=== PATIENT | female | born 1970 | race Two or more races ===

== ENCOUNTER 2018-12-07 16:55 | Emergency (ER) | payer OTHER ==
[~2018-12-07] VITALS: Ht 160 cm; Wt 95.3 kg
[2018-12-07 21:51] LABS: Hematocrit 35.8 % (36.0-46.0); Hemoglobin 12.6 g/dL (12.2-16.2); Mean Corpuscular Hemoglobin 30.3 pg (28.0-32.0); Mean Corpuscular Hgb Conc. 35.1 g/dL (32.0-36.0); Mean Corpuscular Volume 86.5 fL (80.0-100.0); Platelet Count (auto) 52 10^3/uL (140-450); Red Blood Cells 4.14 10^6/uL (4.0-5.20); Red Cell Distribution Width 16.5 % (11.8-14.3); White Blood Cell 6.8 10^3/uL (4.4-10.8)
[2018-12-07 21:52] LABS: Basophils # (auto) 0 uL; Basophils % (auto) 0.4 % (0.0-2.0); Eosinophils # (auto) 0.1 uL; Eosinophils % (auto) 1.1 % (0.0-7.0); Lymphocytes % (auto) 29.5 % (10.0-50.0); Monocytes # (auto) 0.3 uL; Monocytes % (auto) 4.5 % (0.0-12.0); Neutrophils # (auto) 4.4 uL; Neutrophils % (auto) 65.4 % (37.0-80.0); Nucleated Red Blood Cells % 0.2 %
[2018-12-08 01:39] LABS: Carbon Dioxide 37 mmol/L (21-32); Chloride 99 mmol/L (98-107); GFR African American 98 mL/min; GFR Non-African American 81 mL/min; Glucose 315 mg/dL (74-106); Potassium 4.2 mmol/L (3.5-5.1); Sodium 134 mmol/L (136-145)
[2018-12-08 01:51] LABS: Anion Gap < 0 (5-15)
[2018-12-08 03:32] LABS: Alanine Aminotransferase 27 U/L (13-56); Albumin 3.6 g/dL (3.4-5.0); Aspartate Aminotransferase 68 U/L (15-37); Blood Urea Nitrogen 12 mg/dL (7-18); Calcium 8.2 mg/dL (8.5-10.1)
[2018-12-08 03:34] LABS: Alkaline Phosphatase 99 U/L (45-117); Bilirubin, Total 1.4 mg/dL (0.2-1.0); Total Protein 6.4 g/dL (6.4-8.2)
[2018-12-08] MEDS ORDERED: SODIUM CHLORIDE 0.9% 1,000 ML IV ONE ×2 (07:14→10:33)
[2018-12-08 07:41] LABS: Urine Bacteria MOD /hpf (None Seen); Urine Blood Negative /uL (Negative); Urine Mucus FEW (None Seen); Urine Specific Gravity 1.035 (1.001-1.035); Urine WBC 33 /hpf (0 - 5)
[2018-12-08] MEDS ORDERED: InsuLIN REG 1unit/0.01ml Soln (100units/ml) IV ONE (10:45)
[2018-12-08] MEDS ORDERED: LEVOTHYROXINE SODIUM 25 MCG TAB PO ONE (10:45)
[2018-12-08] MEDS ORDERED: cefTRIAXone 1GM/50ML D5W 50 ML IV ONE (10:45)
[2018-12-08] MEDS ORDERED: MULTIPLE VITAMIN 10 ML, MAGNESIUM SULF SDV 50% 8 MEQ in SODIUM CHLORIDE 0.9% 1,000 ML IV SCH (12:00)
[2018-12-08 13:33] VITALS: BP 107/53
== END 2018-12-08 14:07 | disposition home or self-care (01) ==
LOC: ER 16:55
DX: E11.40 Type 2 diabetes mellitus with diabetic neuropathy, unspecified (principal); E11.65 Type 2 diabetes mellitus with hyperglycemia; N39.0 Urinary tract infection, site not specified; E03.9 Hypothyroidism, unspecified; Z98.51 Tubal ligation status
CPT/HCPCS: 36415; 71046; 80053; 81001; 82962; 83036; 83735; 84443; 85025; 93005; 96361; 96365; 96366; 96367; 99284; J0696; J3475; J7030; 96375

== ENCOUNTER 2019-07-19 14:24 | Emergency (ER) | payer OTHER ==
[~2019-07-19] VITALS: Ht 160 cm; Wt 92.5 kg
[2019-07-19 14:33] VITALS: BP 143/77
[2019-07-19] MEDS ORDERED: LIDOCAINE 1% HCL (LOCAL ANESTH.) INJ 20ML MDV IJ ONE (15:30)
[2019-07-19] MEDS ORDERED: cefTRIAXone SOD 1,000 MG VL IM ONE (16:00)
== END 2019-07-19 17:42 | disposition home or self-care (01) ==
LOC: ER 14:24
DX: N76.4 Abscess of vulva (principal); L02.31 Cutaneous abscess of buttock; Z98.51 Tubal ligation status
CPT/HCPCS: 10060; 56405; 96372; 99284; J0696; J2001

== ENCOUNTER 2021-11-21 17:25 | Inpatient (IN) | payer OTHER ==
[~2021-11-21] VITALS: Ht 160 cm; Wt 100.1 kg
[2021-11-21 18:22] LABS: Urine Bacteria FEW /hpf (None Seen); Urine Blood Negative /uL (Negative); Urine WBC 172 /hpf (0 - 5)
[2021-11-21 18:53] LABS: Anion Gap 7 (5-15); Blood Urea Nitrogen 10 mg/dL (7-18); Carbon Dioxide 24 mmol/L (21-32); Chloride 102 mmol/L (98-107); Glucose 263 mg/dL (74-106); Potassium 4.2 mmol/L (3.5-5.1); Sodium 133 mmol/L (136-145)
[2021-11-21 19:45] LABS: Alanine Aminotransferase 135 U/L (13-56); Alkaline Phosphatase 87 U/L (45-117); Aspartate Aminotransferase 187 U/L (15-37); BUN/Creatinine Ratio 9.2; GFR African American 68 mL/min; GFR Non-African American 56 mL/min
[2021-11-21 19:46] LABS: Albumin 3.3 g/dL (3.4-5.0); Bilirubin, Total 2.6 mg/dL (0.2-1.0)
[2021-11-21 19:52] LABS: Basophils # (auto) 0.1 10 ^3/uL (0-0.2); Basophils % (auto) 1.5 % (0.0-2.0); Eosinophils # (auto) 0 10 ^3/uL (0-0.8); Eosinophils % (auto) 0.6 % (0.0-7.0); Hematocrit 30.8 % (36.0-46.0); Lymphocytes # (auto) 2.2 10 ^3/uL (0.4-5.4); Mean Corpuscular Volume 88.5 fL (80.0-100.0); Monocytes # (auto) 0.3 10 ^3/uL (0-1.3); Monocytes % (auto) 4.7 % (0.0-12.0); Neutrophils # (auto) 4.6 10 ^3/uL (1.6-8.6); Neutrophils % (auto) 63.2 % (37.0-80.0); Nucleated Red Blood Cells % 0.3 %; Red Blood Cells 3.49 10^6/uL (4.0-5.20); Red Cell Distribution Width 15.3 % (11.8-14.3); White Blood Cell 7.3 10^3/uL (4.4-10.8)
[2021-11-21 19:53] LABS: Hemoglobin 11.2 g/dL (12.2-16.2)
[2021-11-21 19:54] LABS: Mean Corpuscular Hemoglobin 30.1 pg (28.0-32.0); Mean Corpuscular Hgb Conc. 34.1 g/dL (32.0-36.0)
[2021-11-21 20:11] LABS: Total Protein 7.4 g/dL (6.4-8.2)
[2021-11-21 20:13] LABS: Calcium < 5.0 mg/dL (8.5-10.1)
[2021-11-21] MEDS ORDERED: CALCIUM GLUC 1,000mg/50ml-NS 50 ML IV ONE (20:30)
[2021-11-21] MEDS ORDERED: MORPHINE SULFATE 4 MG/ML SYR/VIAL IV PRN (22:15)
[2021-11-21] MEDS ORDERED: SODIUM CHLORIDE 0.9% 1,000 ML IV SCH (22:15)
[2021-11-21] MEDS ORDERED: ONDANSETRON HCL 4 MG/2 ML VIAL IV PRN (22:15)
[2021-11-21] MEDS ORDERED: DEXTROSE (50%) 50ML SYRG IV PRN (22:15)
[2021-11-21] MEDS ORDERED: HYDROcodone-ACET 5/325MG TAB PO PRN (22:15)
[2021-11-21] MEDS ORDERED: levoFLOXacin 500MG 100 ML IV ONE (22:15)
[2021-11-21] MEDS ORDERED: DOCUSATE SOD 100 MG CAP PO PRN (22:15)
[2021-11-21] MEDS ORDERED: MORPHINE SULFATE INJECTION 2 MG/ML SYRG IV PRN (23:30)
[2021-11-21] MEDS ORDERED: DexAMETHasone SOD PHOS 10MG/1ML VIAL INJ IV ONE (23:30)
[2021-11-21] MEDS ORDERED: NITROGLYCERIN 0.4 MG SL TAB SL PRN (23:30)
[2021-11-22 01:10] VITALS: BP 110/71
[2021-11-22] MEDS ORDERED: METF-929 PO (02:01)
[2021-11-22] MEDS ORDERED: LEVO200T7 PO (02:01)
[2021-11-22] MEDS ORDERED: GABA100C9 PO ×2 (02:01→12:35)
[2021-11-22 05:00] VITALS: BP 107/65
[2021-11-22] MEDS: CLINDAMYCIN 300MG IV 50 ML IV SCH ×3 (05:26→22:41)
[2021-11-22 06:29] LABS: Basophils # (auto) 0 10 ^3/uL (0-0.2); Basophils % (auto) 0.2 % (0.0-2.0); Eosinophils # (auto) 0 10 ^3/uL (0-0.8); Eosinophils % (auto) 0.4 % (0.0-7.0); Hematocrit 30.1 % (36.0-46.0); Hemoglobin 10.1 g/dL (12.2-16.2); Lymphocytes # (auto) 1.1 10 ^3/uL (0.4-5.4); Lymphocytes % (auto) 17.3 % (10.0-50.0); Mean Corpuscular Hemoglobin 29.8 pg (28.0-32.0); Mean Corpuscular Hgb Conc. 33.4 g/dL (32.0-36.0); Monocytes # (auto) 0.2 10 ^3/uL (0-1.3); Monocytes % (auto) 2.3 % (0.0-12.0); Neutrophils # (auto) 5.2 10 ^3/uL (1.6-8.6); Neutrophils % (auto) 79.8 % (37.0-80.0); Nucleated Red Blood Cells % 0.4 %; Red Blood Cells 3.38 10^6/uL (4.0-5.20); Red Cell Distribution Width 14.6 % (11.8-14.3); White Blood Cell 6.6 10^3/uL (4.4-10.8)
[2021-11-22 06:33] LABS: Albumin 3.3 g/dL (3.4-5.0); Anion Gap 10 (5-15); Carbon Dioxide 22 mmol/L (21-32); Chloride 100 mmol/L (98-107); Glucose 270 mg/dL (74-106); Potassium 4.5 mmol/L (3.5-5.1); Sodium 132 mmol/L (136-145)
[2021-11-22 06:39] LABS: Alkaline Phosphatase 78 U/L (45-117); Bilirubin, Direct 0.1 mg/dL (0-0.2); Bilirubin, Total 2.7 mg/dL (0.2-1.0); GFR African American 74 mL/min; GFR Non-African American 61 mL/min
[2021-11-22 06:43] LABS: BUN/Creatinine Ratio 11.9; Blood Urea Nitrogen 12 mg/dL (7-18)
[2021-11-22] MEDS: ACCU-CHEK COMFORT CURVE STRIP VI SCH ×4 (06:43→22:10)
[2021-11-22] MEDS: InsuLIN REG 1unit/0.01ml Soln (100units/ml) SC SCH ×4 (06:43→22:11)
[2021-11-22 06:44] LABS: Blood Alcohol < 3.0 mg/dL (0-5); Calcium 7.3 mg/dL (8.5-10.1); Total Protein 7.2 g/dL (6.4-8.2)
[2021-11-22 07:12] LABS: Aspartate Aminotransferase 118 U/L (15-37)
[2021-11-22 07:45] LABS: Alanine Aminotransferase 38 U/L (13-56)
[2021-11-22 09:00] VITALS: BP 171/68
[2021-11-22] MEDS ORDERED: ENOXAPARIN SOD 40 MG/0.4 ML SYRINGE SC SCH (10:00)
[2021-11-22] MEDS ORDERED: FAMOTIDINE (10MG/ML) 2ML VL IV SCH (10:00)
[2021-11-22] MEDS: cefTRIAXone 1GM/50ML D5W 50 ML IV SCH ×2 (10:18→12:01)
[2021-11-22] MEDS: DexAMETHasone SOD PHOS 10MG/1ML VIAL INJ IV SCH (12:02)
[2021-11-22] MEDS: ASCORBIC ACID 500 MG TAB PO SCH ×2 (12:03→22:10)
[2021-11-22] MEDS: MULTIPLE VITAMIN TAB PO SCH (12:03)
[2021-11-22] MEDS: ZINC SULFATE 220mg CAP or TAB PO SCH (12:03)
[2021-11-22] MEDS ORDERED: METF-370 PO (12:35)
[2021-11-22 13:00] VITALS: BP 108/69
[2021-11-22] MEDS ORDERED: hydrALAZINE HCL 20 MG/ML VL IV PRN (14:00)
[2021-11-22] MEDS ORDERED: IOHEXOL 300 MG/ML 100ML BOTTLE IJ ONE (14:13)
[2021-11-22] MEDS: SODIUM CHLORIDE 0.9% 1,000 ML IV SCH (14:34)
[2021-11-22 17:00] VITALS: BP 103/68
[2021-11-22] MEDS ORDERED: hydrALAZINE HCL 20 MG/ML VL IV SCH (18:00)
[2021-11-22 22:00] VITALS: BP 116/74
[2021-11-22] MEDS: PANTOPRAZOLE 40 MG TAB PO SCH (22:10)
[2021-11-22] MEDS: INSULIN LANTUS (GLARGINE) 1 /0.01ml (100units/ml) SC SCH (22:11)
[2021-11-23 05:19] VITALS: BP 103/59
[2021-11-23] MEDS: CLINDAMYCIN 300MG IV 50 ML IV SCH ×3 (06:06→22:52)
[2021-11-23] MEDS: ACCU-CHEK COMFORT CURVE STRIP VI SCH ×4 (06:36→22:38)
[2021-11-23] MEDS: InsuLIN REG 1unit/0.01ml Soln (100units/ml) SC SCH ×4 (06:40→22:51)
[2021-11-23 06:51] LABS: Chloride 102 mmol/L (98-107); Sodium 134 mmol/L (136-145)
[2021-11-23 06:53] LABS: INR 1.05 (0.9-1.15)
[2021-11-23 07:21] LABS: Albumin 3.3 g/dL (3.4-5.0); Alkaline Phosphatase 75 U/L (45-117); Bilirubin, Total 1.8 mg/dL (0.2-1.0); Calcium 8.4 mg/dL (8.5-10.1); Carbon Dioxide 18 mmol/L (21-32); Cholesterol 298 mg/dL (< 200); GFR African American 57 mL/min; GFR Non-African American 47 mL/min; Glucose 286 mg/dL (74-106); HDL Cholesterol 26 mg/dL (40-59); Magnesium 2.2 mg/dL (1.6-2.6); Triglycerides 1802 mg/dL (< 150)
[2021-11-23 07:23] LABS: Anion Gap 14 (5-15)
[2021-11-23 08:23] LABS: Alanine Aminotransferase 31 U/L (13-56); Aspartate Aminotransferase 97 U/L (15-37); BUN/Creatinine Ratio 10.3; Blood Urea Nitrogen 13 mg/dL (7-18)
[2021-11-23 08:48] LABS: Hematocrit 30.3 % (36.0-46.0); Hemoglobin 10.2 g/dL (12.2-16.2); Mean Corpuscular Hemoglobin 29.9 pg (28.0-32.0); Mean Corpuscular Hgb Conc. 33.8 g/dL (32.0-36.0); Mean Corpuscular Volume 88.6 fL (80.0-100.0); Red Blood Cells 3.42 10^6/uL (4.0-5.20); Red Cell Distribution Width 14.8 % (11.8-14.3)
[2021-11-23 08:53] LABS: Lymphocytes % (auto) 19.5 % (10.0-50.0); Monocytes % (auto) 3.4 % (0.0-12.0); Neutrophils % (auto) 76.6 % (37.0-80.0)
[2021-11-23] MEDS: DexAMETHasone SOD PHOS 10MG/1ML VIAL INJ IV SCH (08:53)
[2021-11-23] MEDS: SODIUM CHLORIDE 0.9% 1,000 ML IV SCH (08:53)
[2021-11-23] MEDS: ZINC SULFATE 220mg CAP or TAB PO SCH (08:53)
[2021-11-23] MEDS: MULTIPLE VITAMIN TAB PO SCH (08:53)
[2021-11-23] MEDS: PANTOPRAZOLE 40 MG TAB PO SCH ×2 (08:53→22:50)
[2021-11-23] MEDS: ASCORBIC ACID 500 MG TAB PO SCH ×2 (08:53→22:51)
[2021-11-23] MEDS: cefTRIAXone 1GM/50ML D5W 50 ML IV SCH (08:53)
[2021-11-23 08:54] LABS: Basophils # (auto) 0 10 ^3/uL (0-0.2); Basophils % (auto) 0.5 % (0.0-2.0); Eosinophils # (auto) 0 10 ^3/uL (0-0.8); Lymphocytes # (auto) 1.5 10 ^3/uL (0.4-5.4); Monocytes # (auto) 0.3 10 ^3/uL (0-1.3); Nucleated Red Blood Cells % 1.4 %
[2021-11-23 09:00] VITALS: BP 99/54
[2021-11-23] MEDS ORDERED: LEVOTHYROXINE SODIUM 100 MCG/5 ML INJ IV ONE (10:30)
[2021-11-23 13:00] VITALS: BP 118/73
[2021-11-23 17:00] VITALS: BP 122/66
[2021-11-23] MEDS: ERGOCALCIFEROL 50,000 UNIT(1.25MG) CAP PO SCH (18:00)
[2021-11-23 22:00] VITALS: BP 107/78
[2021-11-23] MEDS ORDERED: ATORVASTATIN 20 MG TAB PO SCH (22:00)
[2021-11-23] MEDS: INSULIN LANTUS (GLARGINE) 1 /0.01ml (100units/ml) SC SCH (22:46)
[2021-11-24 05:00] VITALS: BP 93/55
[2021-11-24] MEDS: SODIUM CHLORIDE 0.9% 1,000 ML IV SCH (05:45)
[2021-11-24] MEDS: InsuLIN REG 1unit/0.01ml Soln (100units/ml) SC SCH ×5 (06:21→22:58)
[2021-11-24] MEDS: ACCU-CHEK COMFORT CURVE STRIP VI SCH ×4 (06:21→22:00)
[2021-11-24] MEDS: CLINDAMYCIN 300MG IV 50 ML IV SCH ×3 (06:59→22:54)
[2021-11-24] MEDS: cefTRIAXone 1GM/50ML D5W 50 ML IV SCH (09:00)
[2021-11-24 09:11] VITALS: BP 93/59
[2021-11-24] MEDS: ASCORBIC ACID 500 MG TAB PO SCH ×2 (09:40→22:54)
[2021-11-24] MEDS: ZINC SULFATE 220mg CAP or TAB PO SCH (09:40)
[2021-11-24] MEDS: DexAMETHasone SOD PHOS 10MG/1ML VIAL INJ IV SCH (09:40)
[2021-11-24] MEDS: PANTOPRAZOLE 40 MG TAB PO SCH ×2 (09:40→22:55)
[2021-11-24] MEDS: MULTIPLE VITAMIN TAB PO SCH (09:40)
[2021-11-24] MEDS ORDERED: LEVOTHYROXINE SODIUM 100 MCG/5 ML INJ IV SCH (10:00)
[2021-11-24] MEDS ORDERED: GADOTERATE MEG 10 MMOL/20ml INJ (0.5MMOL/ml) IV ONE (11:30)
[2021-11-24 13:04] VITALS: BP 94/56
[2021-11-24 14:15] LABS: Albumin 3.6 g/dL (3.4-5.0); Calcium 8.4 mg/dL (8.5-10.1); Potassium 3.9 mmol/L (3.5-5.1)
[2021-11-24 14:18] LABS: Bilirubin, Total 1.7 mg/dL (0.2-1.0); Total Protein 7.6 g/dL (6.4-8.2)
[2021-11-24 16:44] VITALS: BP 105/59
[2021-11-24 22:00] VITALS: BP 92/57
[2021-11-24] MEDS: ATORVASTATIN 20 MG TAB PO SCH (22:54)
[2021-11-24] MEDS: INSULIN LANTUS (GLARGINE) 1 /0.01ml (100units/ml) SC SCH (23:00)
[2021-11-25 05:00] VITALS: BP 113/56
[2021-11-25] MEDS: CLINDAMYCIN 300MG IV 50 ML IV SCH ×3 (06:24→22:06)
[2021-11-25] MEDS: ACCU-CHEK COMFORT CURVE STRIP VI SCH ×4 (07:00→22:06)
[2021-11-25] MEDS: InsuLIN REG 1unit/0.01ml Soln (100units/ml) SC SCH ×4 (07:00→22:05)
[2021-11-25] MEDS ORDERED: LEVOTHYROXINE SODIUM 100 MCG TAB PO SCH (07:00)
[2021-11-25 07:07] LABS: Potassium 3.5 mmol/L (3.5-5.1)
[2021-11-25 07:14] LABS: Albumin 3.4 g/dL (3.4-5.0); BUN/Creatinine Ratio 15.7; Calcium 8.5 mg/dL (8.5-10.1)
[2021-11-25 07:19] LABS: Bilirubin, Total 1.8 mg/dL (0.2-1.0)
[2021-11-25 07:21] LABS: Basophils # (auto) 0.1 10 ^3/uL (0-0.2); Basophils % (auto) 0.9 % (0.0-2.0); Eosinophils # (auto) 0 10 ^3/uL (0-0.8); Eosinophils % (auto) 0.2 % (0.0-7.0); Hematocrit 29.1 % (36.0-46.0); Hemoglobin 10.6 g/dL (12.2-16.2); Lymphocytes # (auto) 2.3 10 ^3/uL (0.4-5.4); Lymphocytes % (auto) 33.1 % (10.0-50.0); Mean Corpuscular Hemoglobin 31.8 pg (28.0-32.0); Mean Corpuscular Hgb Conc. 36.2 g/dL (32.0-36.0); Mean Corpuscular Volume 87.9 fL (80.0-100.0); Monocytes # (auto) 0.3 10 ^3/uL (0-1.3); Monocytes % (auto) 3.7 % (0.0-12.0); Neutrophils # (auto) 4.4 10 ^3/uL (1.6-8.6); Neutrophils % (auto) 62.1 % (37.0-80.0); Nucleated Red Blood Cells % 0.2 %; Red Blood Cells 3.32 10^6/uL (4.0-5.20); Red Cell Distribution Width 14.6 % (11.8-14.3); White Blood Cell 7.1 10^3/uL (4.4-10.8)
[2021-11-25 09:11] VITALS: BP 117/66
[2021-11-25] MEDS: DexAMETHasone SOD PHOS 10MG/1ML VIAL INJ IV SCH (09:17)
[2021-11-25] MEDS: cefTRIAXone 1GM/50ML D5W 50 ML IV SCH (09:17)
[2021-11-25] MEDS: ASCORBIC ACID 500 MG TAB PO SCH ×2 (09:18→21:54)
[2021-11-25] MEDS: MULTIPLE VITAMIN TAB PO SCH (09:18)
[2021-11-25] MEDS: ZINC SULFATE 220mg CAP or TAB PO SCH (09:18)
[2021-11-25] MEDS: PANTOPRAZOLE 40 MG TAB PO SCH ×2 (09:18→21:54)
[2021-11-25 13:00] VITALS: BP 119/80
[2021-11-25 15:28] LABS: Hepatitis B Surface Antibody Negative (Negative)
[2021-11-25 16:02] LABS: Hepatitis A Total Antibody Positive (Negative)
[2021-11-25 16:35] LABS: Hepatitis C Antibody Negative (Negative)
[2021-11-25 17:06] VITALS: BP 125/85
[2021-11-25] MEDS: ATORVASTATIN 20 MG TAB PO SCH (21:53)
[2021-11-25 22:00] VITALS: BP 125/74
[2021-11-25] MEDS: INSULIN LANTUS (GLARGINE) 1 /0.01ml (100units/ml) SC SCH (22:06)
[2021-11-26 04:00] VITALS: BP 98/69
[2021-11-26 05:48] LABS: Basophils # (auto) 0 10 ^3/uL (0-0.2); Basophils % (auto) 0.4 % (0.0-2.0); Eosinophils # (auto) 0 10 ^3/uL (0-0.8); Eosinophils % (auto) 0.5 % (0.0-7.0); Hematocrit 31.2 % (36.0-46.0); Hemoglobin 10.8 g/dL (12.2-16.2); Lymphocytes # (auto) 2.5 10 ^3/uL (0.4-5.4); Lymphocytes % (auto) 37.9 % (10.0-50.0); Mean Corpuscular Hemoglobin 30.7 pg (28.0-32.0); Mean Corpuscular Hgb Conc. 34.6 g/dL (32.0-36.0); Mean Corpuscular Volume 88.7 fL (80.0-100.0); Monocytes # (auto) 0.2 10 ^3/uL (0-1.3); Monocytes % (auto) 3.7 % (0.0-12.0); Neutrophils # (auto) 3.9 10 ^3/uL (1.6-8.6); Neutrophils % (auto) 57.5 % (37.0-80.0); Nucleated Red Blood Cells % 0.2 %; Red Blood Cells 3.51 10^6/uL (4.0-5.20); Red Cell Distribution Width 14.9 % (11.8-14.3); White Blood Cell 6.7 10^3/uL (4.4-10.8)
[2021-11-26 06:09] LABS: Calcium 8.3 mg/dL (8.5-10.1); Potassium 3.4 mmol/L (3.5-5.1)
[2021-11-26 06:13] LABS: BUN/Creatinine Ratio 17.8
[2021-11-26] MEDS: ACCU-CHEK COMFORT CURVE STRIP VI SCH ×4 (06:13→22:46)
[2021-11-26 06:15] LABS: Bilirubin, Total 1.8 mg/dL (0.2-1.0)
[2021-11-26] MEDS: CLINDAMYCIN 300MG IV 50 ML IV SCH ×3 (06:21→22:54)
[2021-11-26] MEDS: LEVOTHYROXINE SODIUM 100 MCG TAB PO SCH (06:35)
[2021-11-26] MEDS: InsuLIN REG 1unit/0.01ml Soln (100units/ml) SC SCH ×5 (06:45→22:56)
[2021-11-26 09:00] VITALS: BP 98/53
[2021-11-26] MEDS: cefTRIAXone 1GM/50ML D5W 50 ML IV SCH (09:00)
[2021-11-26] MEDS: PANTOPRAZOLE 40 MG TAB PO SCH ×2 (09:35→22:44)
[2021-11-26] MEDS: DexAMETHasone SOD PHOS 10MG/1ML VIAL INJ IV SCH (09:35)
[2021-11-26] MEDS: MULTIPLE VITAMIN TAB PO SCH (09:35)
[2021-11-26] MEDS: ASCORBIC ACID 500 MG TAB PO SCH ×2 (09:35→22:44)
[2021-11-26] MEDS: ZINC SULFATE 220mg CAP or TAB PO SCH (09:35)
[2021-11-26 12:32] VITALS: BP 114/64
[2021-11-26] MEDS ORDERED: POTASSIUM EFFERVESENT TAB 25 MEQ PO ONE (15:00)
[2021-11-26 17:25] VITALS: BP 129/83
[2021-11-26 22:00] VITALS: BP 116/70
[2021-11-26] MEDS: ATORVASTATIN 20 MG TAB PO SCH (22:44)
[2021-11-26] MEDS: INSULIN LANTUS (GLARGINE) 1 /0.01ml (100units/ml) SC SCH (22:50)
[2021-11-27 05:00] VITALS: BP 97/59
[2021-11-27] MEDS: CLINDAMYCIN 300MG IV 50 ML IV SCH ×5 (07:23→21:10)
[2021-11-27] MEDS: LEVOTHYROXINE SODIUM 100 MCG TAB PO SCH (07:24)
[2021-11-27] MEDS: ACCU-CHEK COMFORT CURVE STRIP VI SCH ×4 (07:24→21:22)
[2021-11-27 08:15] VITALS: BP 113/72
[2021-11-27] MEDS: cefTRIAXone 1GM/50ML D5W 50 ML IV SCH (08:27)
[2021-11-27] MEDS: ZINC SULFATE 220mg CAP or TAB PO SCH (08:27)
[2021-11-27] MEDS: DexAMETHasone SOD PHOS 4 MG/1ML SDV INJ IV SCH (08:27)
[2021-11-27] MEDS: PANTOPRAZOLE 40 MG TAB PO SCH ×2 (08:28→21:10)
[2021-11-27] MEDS: ASCORBIC ACID 500 MG TAB PO SCH ×2 (08:28→21:10)
[2021-11-27] MEDS: MULTIPLE VITAMIN TAB PO SCH (08:28)
[2021-11-27 08:33] LABS: Basophils # (auto) 0 10 ^3/uL (0-0.2); Basophils % (auto) 0.3 % (0.0-2.0); Eosinophils # (auto) 0 10 ^3/uL (0-0.8); Eosinophils % (auto) 0.6 % (0.0-7.0); Hemoglobin 11.9 g/dL (12.2-16.2); Lymphocytes # (auto) 2.5 10 ^3/uL (0.4-5.4); Lymphocytes % (auto) 32.4 % (10.0-50.0); Mean Corpuscular Hemoglobin 32.2 pg (28.0-32.0); Mean Corpuscular Hgb Conc. 36.1 g/dL (32.0-36.0); Mean Corpuscular Volume 89.1 fL (80.0-100.0); Monocytes # (auto) 0.2 10 ^3/uL (0-1.3); Monocytes % (auto) 2.9 % (0.0-12.0); Neutrophils % (auto) 63.8 % (37.0-80.0); Nucleated Red Blood Cells % 0.2 %; Red Cell Distribution Width 15.2 % (11.8-14.3); White Blood Cell 7.8 10^3/uL (4.4-10.8)
[2021-11-27 08:40] LABS: Potassium 3.5 mmol/L (3.5-5.1)
[2021-11-27 08:53] LABS: BUN/Creatinine Ratio 21.3; Bilirubin, Total 2.2 mg/dL (0.2-1.0); Calcium 9.1 mg/dL (8.5-10.1)
[2021-11-27] MEDS: InsuLIN REG 1unit/0.01ml Soln (100units/ml) SC SCH ×3 (11:37→21:22)
[2021-11-27 12:09] VITALS: BP 90/62
[2021-11-27 16:22] VITALS: BP 112/70
[2021-11-27] MEDS: ATORVASTATIN 20 MG TAB PO SCH (21:10)
[2021-11-27] MEDS: INSULIN LANTUS (GLARGINE) 1 /0.01ml (100units/ml) SC SCH (21:27)
[2021-11-27 22:28] VITALS: BP 93/62
[2021-11-28 05:00] VITALS: BP 95/64
[2021-11-28] MEDS: CLINDAMYCIN 300MG IV 50 ML IV SCH ×3 (05:59→21:23)
[2021-11-28] MEDS: ACCU-CHEK COMFORT CURVE STRIP VI SCH ×4 (06:05→21:18)
[2021-11-28] MEDS: LEVOTHYROXINE SODIUM 100 MCG TAB PO SCH (06:05)
[2021-11-28] MEDS: InsuLIN REG 1unit/0.01ml Soln (100units/ml) SC SCH ×4 (06:05→21:23)
[2021-11-28 07:16] LABS: Potassium 3.5 mmol/L (3.5-5.1)
[2021-11-28 07:28] LABS: Albumin 3.5 g/dL (3.4-5.0); Bilirubin, Total 2.3 mg/dL (0.2-1.0); Calcium 8.3 mg/dL (8.5-10.1)
[2021-11-28 07:37] LABS: Basophils # (auto) 0.2 10 ^3/uL (0-0.2); Basophils % (auto) 2.6 % (0.0-2.0); Eosinophils # (auto) 0.1 10 ^3/uL (0-0.8); Eosinophils % (auto) 0.9 % (0.0-7.0); Hemoglobin 11.5 g/dL (12.2-16.2); Lymphocytes # (auto) 2.4 10 ^3/uL (0.4-5.4); Lymphocytes % (auto) 28.7 % (10.0-50.0); Mean Corpuscular Hemoglobin 32.4 pg (28.0-32.0); Mean Corpuscular Volume 88.3 fL (80.0-100.0); Monocytes # (auto) 0.2 10 ^3/uL (0-1.3); Monocytes % (auto) 2.4 % (0.0-12.0); Neutrophils # (auto) 5.4 10 ^3/uL (1.6-8.6); Neutrophils % (auto) 65.4 % (37.0-80.0); Nucleated Red Blood Cells % 0.2 %; Red Blood Cells 3.57 10^6/uL (4.0-5.20); Red Cell Distribution Width 15.1 % (11.8-14.3); White Blood Cell 8.2 10^3/uL (4.4-10.8)
[2021-11-28 07:39] LABS: Hematocrit 32.5 % (36.0-46.0)
[2021-11-28 07:56] LABS: BUN/Creatinine Ratio 20.9
[2021-11-28 07:57] LABS: Total Protein 7.3 g/dL (6.4-8.2)
[2021-11-28 09:00] VITALS: BP 112/64
[2021-11-28] MEDS: cefTRIAXone 1GM/50ML D5W 50 ML IV SCH (09:22)
[2021-11-28] MEDS: ASCORBIC ACID 500 MG TAB PO SCH ×2 (09:23→21:23)
[2021-11-28] MEDS: DexAMETHasone SOD PHOS 4 MG/1ML SDV INJ IV SCH (09:23)
[2021-11-28] MEDS: PANTOPRAZOLE 40 MG TAB PO SCH ×2 (09:23→21:23)
[2021-11-28] MEDS: MULTIPLE VITAMIN TAB PO SCH (09:23)
[2021-11-28] MEDS: ZINC SULFATE 220mg CAP or TAB PO SCH (09:23)
[2021-11-28 13:00] VITALS: BP 115/75
[2021-11-28 17:00] VITALS: BP 126/69
[2021-11-28] MEDS: ATORVASTATIN 20 MG TAB PO SCH (21:23)
[2021-11-28] MEDS: INSULIN LANTUS (GLARGINE) 1 /0.01ml (100units/ml) SC SCH (21:31)
[2021-11-28 21:56] VITALS: BP 94/54
[2021-11-29 05:00] VITALS: BP 124/60
[2021-11-29 05:29] LABS: Basophils # (auto) 0 10 ^3/uL (0-0.2); Basophils % (auto) 0.4 % (0.0-2.0); Eosinophils # (auto) 0 10 ^3/uL (0-0.8); Eosinophils % (auto) 0.6 % (0.0-7.0); Hematocrit 30.4 % (36.0-46.0); Hemoglobin 11.1 g/dL (12.2-16.2); Lymphocytes # (auto) 2.4 10 ^3/uL (0.4-5.4); Lymphocytes % (auto) 31.4 % (10.0-50.0); Mean Corpuscular Hgb Conc. 36.4 g/dL (32.0-36.0); Monocytes # (auto) 0.3 10 ^3/uL (0-1.3); Monocytes % (auto) 3.3 % (0.0-12.0); Neutrophils # (auto) 4.9 10 ^3/uL (1.6-8.6); Neutrophils % (auto) 64.3 % (37.0-80.0); Nucleated Red Blood Cells % 0.1 %; Red Blood Cells 3.46 10^6/uL (4.0-5.20); Red Cell Distribution Width 14.6 % (11.8-14.3); White Blood Cell 7.7 10^3/uL (4.4-10.8)
[2021-11-29 06:06] LABS: Potassium 3.5 mmol/L (3.5-5.1)
[2021-11-29 06:13] LABS: Albumin 3.6 g/dL (3.4-5.0); BUN/Creatinine Ratio 15.6; Calcium 8.8 mg/dL (8.5-10.1)
[2021-11-29] MEDS: LEVOTHYROXINE SODIUM 100 MCG TAB PO SCH (06:13)
[2021-11-29] MEDS: CLINDAMYCIN 300MG IV 50 ML IV SCH (06:14)
[2021-11-29] MEDS: InsuLIN REG 1unit/0.01ml Soln (100units/ml) SC SCH ×4 (06:23→22:01)
[2021-11-29] MEDS: ACCU-CHEK COMFORT CURVE STRIP VI SCH ×4 (06:23→21:55)
[2021-11-29 06:24] LABS: Bilirubin, Total 2.4 mg/dL (0.2-1.0); Total Protein 7.3 g/dL (6.4-8.2)
[2021-11-29 09:00] VITALS: BP 115/75
[2021-11-29] MEDS: cefTRIAXone 1GM/50ML D5W 50 ML IV SCH (09:00)
[2021-11-29] MEDS: ASCORBIC ACID 500 MG TAB PO SCH ×2 (10:00→21:55)
[2021-11-29] MEDS: PANTOPRAZOLE 40 MG TAB PO SCH ×2 (10:00→21:55)
[2021-11-29] MEDS: ZINC SULFATE 220mg CAP or TAB PO SCH (10:00)
[2021-11-29] MEDS: DexAMETHasone SOD PHOS 4 MG/1ML SDV INJ IV SCH (10:00)
[2021-11-29] MEDS: MULTIPLE VITAMIN TAB PO SCH (10:00)
[2021-11-29 10:28] LABS: Prolactin 20.43 ng/mL (2.8-29.2)
[2021-11-29 10:29] LABS: Follicle Stimulating Hormone 35.26 IU/L (SEE BELOW)
[2021-11-29 13:00] VITALS: BP 107/74
[2021-11-29 17:00] VITALS: BP 101/72
[2021-11-29] MEDS: ATORVASTATIN 20 MG TAB PO SCH (21:54)
[2021-11-29 22:00] VITALS: BP_SYST 114; BP_SYST 96; BP_DIAS 58; BP_DIAS 76
[2021-11-29] MEDS: INSULIN LANTUS (GLARGINE) 1 /0.01ml (100units/ml) SC SCH (22:01)
[2021-11-30 04:30] VITALS: BP 96/58
[2021-11-30] MEDS: ACCU-CHEK COMFORT CURVE STRIP VI SCH ×4 (05:43→21:41)
[2021-11-30] MEDS: InsuLIN REG 1unit/0.01ml Soln (100units/ml) SC SCH ×4 (05:49→21:45)
[2021-11-30] MEDS: LEVOTHYROXINE SODIUM 100 MCG TAB PO SCH (05:50)
[2021-11-30 06:26] LABS: BUN/Creatinine Ratio 16.1; Calcium 8.6 mg/dL (8.5-10.1); Potassium 3.6 mmol/L (3.5-5.1)
[2021-11-30 09:00] VITALS: BP 103/67
[2021-11-30] MEDS: ZINC SULFATE 220mg CAP or TAB PO SCH (09:57)
[2021-11-30] MEDS: ASCORBIC ACID 500 MG TAB PO SCH ×2 (09:57→21:39)
[2021-11-30] MEDS: PANTOPRAZOLE 40 MG TAB PO SCH ×2 (09:57→21:39)
[2021-11-30] MEDS: MULTIPLE VITAMIN TAB PO SCH (09:57)
[2021-11-30] MEDS: ERGOCALCIFEROL 50,000 UNIT(1.25MG) CAP PO SCH (09:58)
[2021-11-30] MEDS: LEVOTHYROXINE SODIUM 100 MCG/5 ML INJ IV SCH (10:00)
[2021-11-30 13:00] VITALS: BP 103/58
[2021-11-30 17:00] VITALS: BP 105/64
[2021-11-30] MEDS: INSULIN LANTUS (GLARGINE) 1 /0.01ml (100units/ml) SC SCH (21:44)
[2021-11-30] MEDS: ATORVASTATIN 20 MG TAB PO SCH (21:49)
[2021-11-30 22:00] VITALS: BP 100/66
[2021-12-01] MEDS: ACCU-CHEK COMFORT CURVE STRIP VI SCH ×4 (05:53→21:54)
[2021-12-01] MEDS: InsuLIN REG 1unit/0.01ml Soln (100units/ml) SC SCH ×4 (06:20→21:58)
[2021-12-01] MEDS: LEVOTHYROXINE SODIUM 100 MCG TAB PO SCH (06:20)
[2021-12-01 09:00] VITALS: BP 158/78
[2021-12-01] MEDS: LEVOTHYROXINE SODIUM 100 MCG/5 ML INJ IV SCH (09:46)
[2021-12-01] MEDS: ZINC SULFATE 220mg CAP or TAB PO SCH (09:47)
[2021-12-01] MEDS: ASCORBIC ACID 500 MG TAB PO SCH ×2 (09:47→21:54)
[2021-12-01] MEDS: MULTIPLE VITAMIN TAB PO SCH (09:47)
[2021-12-01] MEDS: PANTOPRAZOLE 40 MG TAB PO SCH ×2 (09:47→21:54)
[2021-12-01 13:00] VITALS: BP 135/70
[2021-12-01 17:00] VITALS: BP 119/72
[2021-12-01 20:00] VITALS: BP 93/58
[2021-12-01] MEDS: ATORVASTATIN 20 MG TAB PO SCH (21:53)
[2021-12-01] MEDS: INSULIN LANTUS (GLARGINE) 1 /0.01ml (100units/ml) SC SCH (21:58)
[2021-12-01 23:10] VITALS: BP 93/58
[2021-12-02 05:43] VITALS: BP 92/60
[2021-12-02] MEDS: ACCU-CHEK COMFORT CURVE STRIP VI SCH ×4 (06:31→21:56)
[2021-12-02] MEDS: InsuLIN REG 1unit/0.01ml Soln (100units/ml) SC SCH ×4 (06:31→22:05)
[2021-12-02] MEDS: LEVOTHYROXINE SODIUM 100 MCG TAB PO SCH (06:48)
[2021-12-02 08:48] VITALS: BP 106/67
[2021-12-02] MEDS: MULTIPLE VITAMIN TAB PO SCH (10:08)
[2021-12-02] MEDS: LEVOTHYROXINE SODIUM 100 MCG/5 ML INJ IV SCH (10:08)
[2021-12-02] MEDS: ZINC SULFATE 220mg CAP or TAB PO SCH (10:08)
[2021-12-02] MEDS: ASCORBIC ACID 500 MG TAB PO SCH ×2 (10:09→21:55)
[2021-12-02] MEDS: PANTOPRAZOLE 40 MG TAB PO SCH ×2 (10:09→21:55)
[2021-12-02 13:00] VITALS: BP 108/70
[2021-12-02] MEDS: HYDROCORTISONE SOD SUCC 100 MG/2ML INJ VIAL IV SCH ×2 (16:54→21:55)
[2021-12-02 17:00] VITALS: BP 98/59
[2021-12-02 20:00] VITALS: BP 108/58
[2021-12-02] MEDS: ATORVASTATIN 20 MG TAB PO SCH (21:55)
[2021-12-02 22:00] VITALS: BP 108/58
[2021-12-02] MEDS: INSULIN LANTUS (GLARGINE) 1 /0.01ml (100units/ml) SC SCH (22:05)
[2021-12-03 05:00] VITALS: BP 95/59
[2021-12-03] MEDS: HYDROCORTISONE SOD SUCC 100 MG/2ML INJ VIAL IV SCH ×3 (05:55→22:56)
[2021-12-03] MEDS: ACCU-CHEK COMFORT CURVE STRIP VI SCH ×4 (06:32→22:57)
[2021-12-03] MEDS: LEVOTHYROXINE SODIUM 100 MCG TAB PO SCH (06:32)
[2021-12-03] MEDS: InsuLIN REG 1unit/0.01ml Soln (100units/ml) SC SCH ×4 (06:38→22:00)
[2021-12-03 06:39] LABS: Basophils # (auto) 0.1 10 ^3/uL (0-0.2); Basophils % (auto) 0.7 % (0.0-2.0); Eosinophils # (auto) 0 10 ^3/uL (0-0.8); Eosinophils % (auto) 0.2 % (0.0-7.0); Hematocrit 29.3 % (36.0-46.0); Hemoglobin 10.3 g/dL (12.2-16.2); Lymphocytes # (auto) 1.4 10 ^3/uL (0.4-5.4); Lymphocytes % (auto) 18.2 % (10.0-50.0); Mean Corpuscular Volume 88.5 fL (80.0-100.0); Monocytes # (auto) 0.2 10 ^3/uL (0-1.3); Neutrophils # (auto) 6.1 10 ^3/uL (1.6-8.6); Neutrophils % (auto) 78.9 % (37.0-80.0); Red Blood Cells 3.31 10^6/uL (4.0-5.20); Red Cell Distribution Width 14.5 % (11.8-14.3); White Blood Cell 7.8 10^3/uL (4.4-10.8)
[2021-12-03 07:03] LABS: Potassium 3.6 mmol/L (3.5-5.1)
[2021-12-03 07:13] LABS: BUN/Creatinine Ratio 18.2; Calcium 8.8 mg/dL (8.5-10.1); Magnesium 2.4 mg/dL (1.6-2.6)
[2021-12-03 07:15] LABS: Bilirubin, Total 2.5 mg/dL (0.2-1.0)
[2021-12-03 08:30] VITALS: BP 108/69
[2021-12-03] MEDS ORDERED: ADENOSINE 84 MG in GIVE UN-DILUTED 0 ML IV ONE (08:30)
[2021-12-03] MEDS: ZINC SULFATE 220mg CAP or TAB PO SCH (09:45)
[2021-12-03] MEDS: LEVOTHYROXINE SODIUM 100 MCG/5 ML INJ IV SCH (09:45)
[2021-12-03] MEDS: MULTIPLE VITAMIN TAB PO SCH (09:45)
[2021-12-03] MEDS: ASCORBIC ACID 500 MG TAB PO SCH ×2 (09:46→22:56)
[2021-12-03] MEDS: PANTOPRAZOLE 40 MG TAB PO SCH ×2 (09:46→10:00)
[2021-12-03 12:57] VITALS: BP 139/69
[2021-12-03 22:00] VITALS: BP 118/68
[2021-12-03] MEDS: ATORVASTATIN 20 MG TAB PO SCH (22:56)
[2021-12-03] MEDS: INSULIN LANTUS (GLARGINE) 1 /0.01ml (100units/ml) SC SCH (22:58)
[2021-12-04 05:00] VITALS: BP 123/56
[2021-12-04] MEDS: ACCU-CHEK COMFORT CURVE STRIP VI SCH ×4 (06:41→21:20)
[2021-12-04] MEDS: HYDROCORTISONE SOD SUCC 100 MG/2ML INJ VIAL IV SCH ×3 (06:41→21:19)
[2021-12-04] MEDS: LEVOTHYROXINE SODIUM 100 MCG TAB PO SCH (06:41)
[2021-12-04] MEDS: InsuLIN REG 1unit/0.01ml Soln (100units/ml) SC SCH ×4 (06:47→22:40)
[2021-12-04 08:58] VITALS: BP 118/67
[2021-12-04] MEDS: MULTIPLE VITAMIN TAB PO SCH (10:00)
[2021-12-04] MEDS: PANTOPRAZOLE 40 MG TAB PO SCH ×2 (10:00→21:19)
[2021-12-04] MEDS: ASCORBIC ACID 500 MG TAB PO SCH ×2 (10:00→21:19)
[2021-12-04] MEDS: ZINC SULFATE 220mg CAP or TAB PO SCH (10:00)
[2021-12-04] MEDS: LEVOTHYROXINE SODIUM 100 MCG/5 ML INJ IV SCH (10:00)
[2021-12-04 12:35] VITALS: BP 113/70
[2021-12-04 16:48] VITALS: BP 116/62
[2021-12-04] MEDS: ATORVASTATIN 20 MG TAB PO SCH (21:19)
[2021-12-04] MEDS: INSULIN LANTUS (GLARGINE) 1 /0.01ml (100units/ml) SC SCH (21:23)
[2021-12-05 04:54] VITALS: BP 86/42
[2021-12-05] MEDS: LEVOTHYROXINE SODIUM 100 MCG TAB PO SCH (06:06)
[2021-12-05] MEDS: HYDROCORTISONE SOD SUCC 100 MG/2ML INJ VIAL IV SCH ×3 (06:06→22:13)
[2021-12-05] MEDS: ACCU-CHEK COMFORT CURVE STRIP VI SCH ×4 (06:08→22:13)
[2021-12-05] MEDS: InsuLIN REG 1unit/0.01ml Soln (100units/ml) SC SCH ×4 (06:29→22:19)
[2021-12-05 09:00] VITALS: BP 110/67
[2021-12-05] MEDS: MULTIPLE VITAMIN TAB PO SCH (09:33)
[2021-12-05] MEDS: ZINC SULFATE 220mg CAP or TAB PO SCH (09:33)
[2021-12-05] MEDS: LEVOTHYROXINE SODIUM 100 MCG/5 ML INJ IV SCH (09:33)
[2021-12-05] MEDS: PANTOPRAZOLE 40 MG TAB PO SCH ×2 (09:34→22:13)
[2021-12-05] MEDS: ASCORBIC ACID 500 MG TAB PO SCH ×2 (09:34→22:12)
[2021-12-05 12:00] VITALS: BP 108/74
[2021-12-05 16:00] VITALS: BP 127/83
[2021-12-05 20:00] VITALS: BP 110/55
[2021-12-05 21:50] VITALS: BP 110/55
[2021-12-05] MEDS: ATORVASTATIN 20 MG TAB PO SCH (22:12)
[2021-12-05] MEDS: INSULIN LANTUS (GLARGINE) 1 /0.01ml (100units/ml) SC SCH (22:19)
[2021-12-06 05:05] VITALS: BP 109/59
[2021-12-06] MEDS: LEVOTHYROXINE SODIUM 100 MCG TAB PO SCH (07:00)
[2021-12-06] MEDS: HYDROCORTISONE SOD SUCC 100 MG/2ML INJ VIAL IV SCH ×2 (07:00→13:38)
[2021-12-06] MEDS: ACCU-CHEK COMFORT CURVE STRIP VI SCH ×2 (07:20→11:30)
[2021-12-06] MEDS: InsuLIN REG 1unit/0.01ml Soln (100units/ml) SC SCH ×2 (07:26→11:30)
[2021-12-06 09:00] VITALS: BP 104/56
[2021-12-06] MEDS: MULTIPLE VITAMIN TAB PO SCH (10:00)
[2021-12-06] MEDS: ZINC SULFATE 220mg CAP or TAB PO SCH (10:00)
[2021-12-06] MEDS: PANTOPRAZOLE 40 MG TAB PO SCH (10:00)
[2021-12-06] MEDS: ASCORBIC ACID 500 MG TAB PO SCH (10:00)
[2021-12-06] MEDS: LEVOTHYROXINE SODIUM 100 MCG/5 ML INJ IV SCH (10:00)
[2021-12-06] MEDS ORDERED: INSLANTI SC (12:23)
[2021-12-06] MEDS ORDERED: LEVO200T7 PO (12:23)
[2021-12-06] MEDS ORDERED: HYDR10T PO (12:23)
[2021-12-06] MEDS ORDERED: ATO40T PO (12:23)
[2021-12-06] MEDS ORDERED: CHOL500023 PO (12:23)
[2021-12-06 13:00] VITALS: BP 110/70
== END 2021-12-06 18:00 | disposition home or self-care (01) | DRG 643 ==
LOC: ER 17:25 → TELE 23:45 → TELE-WESTW 11-22 01:10 → WEST WING 12-01 15:21
PROVIDERS: ADMIT Nurse Practitioner Family; ATTEND Internal Medicine
PROC: 4A02XM4 Measurement of Cardiac Total Activity, External Approach (ICD-10-PCS; principal; 2021-12-03)
PROC: 3E073KZ Introduction of Other Diagnostic Substance into Coronary Artery, Percutaneous Approach (ICD-10-PCS; 2021-12-03)
DX: E03.9 Hypothyroidism, unspecified (principal); N17.0 Acute kidney failure with tubular necrosis; N30.01 Acute cystitis with hematuria; I31.3 Pericardial effusion (noninflammatory); D69.3 Immune thrombocytopenic purpura; D35.2 Benign neoplasm of pituitary gland; R22.0 Localized swelling, mass and lump, head; E88.09 Other disorders of plasma-protein metabolism, not elsewhere classified; D69.6 Thrombocytopenia, unspecified; I49.8 Other specified cardiac arrhythmias; K76.0 Fatty (change of) liver, not elsewhere classified; G43.909 Migraine, unspecified, not intractable, without status migrainosus; E55.9 Vitamin D deficiency, unspecified; E66.01 Morbid (severe) obesity due to excess calories; E78.5 Hyperlipidemia, unspecified; E11.42 Type 2 diabetes mellitus with diabetic polyneuropathy; I12.9 Hypertensive chronic kidney disease with stage 1 through stage 4 chronic kidney disease, or unspecified chronic kidney disease; K80.20 Calculus of gallbladder without cholecystitis without obstruction; D18.03 Hemangioma of intra-abdominal structures; E11.22 Type 2 diabetes mellitus with diabetic chronic kidney disease; N18.9 Chronic kidney disease, unspecified; E78.00 Pure hypercholesterolemia, unspecified; E78.1 Pure hyperglyceridemia; Z82.49 Family history of ischemic heart disease and other diseases of the circulatory system; Z83.3 Family history of diabetes mellitus; Z86.16 Personal history of COVID-19; Z68.29 Body mass index [BMI] 29.0-29.9, adult; Z79.84 Long term (current) use of oral hypoglycemic drugs
CPT/HCPCS: 36415; 70450; 70486; 70491; 70553; 71250; 74181; 74183; 76705; 78452; 80048; 80053; 80061; 80076; 80320; 81001; 82247; 82306; 82533; 82962; 83001; 83036; 83735; 83880; 84146; 84436; 84443; 84481; 84484; 84702; 85025; 85610; 85652; 86141; 86431; 86704; 86706; 86708; 86803; 87086; 87340; 93005; 93017; 93306; 99291; G0378; J0153; J0696; J1100; J1815; J1956; J3490

== ENCOUNTER 2023-07-28 19:31 | Inpatient (IN) | payer OTHER ==
[~2023-07-28] VITALS: Ht 160 cm; Wt 93.0 kg
[~2023-07-28 19:31] MED LIST: ATO40T PO; CHOL500023 PO; GABA-1308 PO; HYDR10T PO; INSLANTI SC; LEVO200T7 PO; METF-370 PO
[2023-07-28] MEDS ORDERED: SODIUM CHLORIDE 0.9% 1,000 ML IV ONE (20:30)
[2023-07-28 20:51] LABS: Urine Bacteria FEW /hpf (None Seen); Urine Blood Negative /uL (Negative); Urine Budding Yeast OCCASIONAL /hpf (None Seen); Urine Clarity HAZY (Clear); Urine Color Yellow (Yellow); Urine Mucus FEW (None Seen); Urine Protein, UAD 1+ (Negative); Urine WBC 73 /hpf (0 - 5); Urine pH 5.5 (5.0-8.0)
[2023-07-28 22:10] LABS: Basophils # (auto) 0.1 10 ^3/uL (0-0.2); Eosinophils # (auto) 0.1 10 ^3/uL (0-0.8); Eosinophils % (auto) 0.9 % (0.0-7.0); Hematocrit 34.9 % (36.0-46.0); Hemoglobin 14.1 g/dL (12.2-16.2); Lymphocytes # (auto) 1.7 10 ^3/uL (0.4-5.4); Lymphocytes % (auto) 24.4 % (10.0-50.0); Mean Corpuscular Volume 83.5 fL (80.0-100.0); Monocytes # (auto) 0.2 10 ^3/uL (0-1.3); Monocytes % (auto) 3.4 % (0.0-12.0); Neutrophils # (auto) 4.9 10 ^3/uL (1.6-8.6); Neutrophils % (auto) 69.3 % (37.0-80.0); Nucleated Red Blood Cells % 0.4 %; Red Blood Cells 4.18 10^6/uL (4.0-5.20); Red Cell Distribution Width 15.8 % (11.8-14.3)
[2023-07-28 22:15] LABS: Mean Corpuscular Hemoglobin 28.8 pg (28.0-32.0)
[2023-07-28 22:16] LABS: Mean Corpuscular Hgb Conc. 33.8 g/dL (32.0-36.0)
[2023-07-29 00:28] LABS: Chloride 101 mmol/L (98-107); Sodium 132 mmol/L (136-145)
[2023-07-29 01:11] LABS: Alanine Aminotransferase 18 U/L (7-40); Albumin 4.6 g/dL (3.2-4.8); Alkaline Phosphatase 111 U/L (46-116); Anion Gap 19 (5-15); Aspartate Aminotransferase 80 U/L (13-40); BUN/Creatinine Ratio 11.6 (10.0-20.0); Bilirubin, Total 2.1 mg/dL (0.2-1.0); Blood Urea Nitrogen 10 mg/dL (9-23); Calcium 9.1 mg/dL (8.7-10.4); Carbon Dioxide 12 mmol/L (20-30); Glucose 342 mg/dL (74-106); Lipase 53 U/L (12-53); Total Protein 7.6 g/dL (5.7-8.2)
[2023-07-29 01:14] LABS: Potassium 5.7 mmol/L (3.5-5.1)
[2023-07-29] MEDS ORDERED: SODIUM CHLORIDE 0.9% 1,000 ML IV ONE (01:30)
[2023-07-29] MEDS ORDERED: InsuLIN REG 1unit/0.01ml Soln (100units/ml) SC ONE (01:30)
[2023-07-29 05:01] LABS: Anion Gap 1 (5-15); BUN/Creatinine Ratio 6.7 (10.0-20.0); Blood Urea Nitrogen < 5 mg/dL (9-23); Calcium 8.8 mg/dL (8.7-10.4); Carbon Dioxide 30 mmol/L (20-30); Chloride 98 mmol/L (98-107); Glucose 287 mg/dL (74-106); Potassium 5.2 mmol/L (3.5-5.1); Sodium 129 mmol/L (136-145)
[2023-07-29] MEDS ORDERED: DEXTROSE (50%) 50ML SYRG IV PRN ×2 (05:30→12:00)
[2023-07-29] MEDS ORDERED: ONDANSETRON HCL 4 MG/2 ML VIAL IV PRN (05:30)
[2023-07-29] MEDS ORDERED: DOCUSATE SOD 100 MG CAP PO PRN (05:30)
[2023-07-29] MEDS ORDERED: cefTRIAXone 1GM/50ML D5W 50 ML IV ONE (05:30)
[2023-07-29] MEDS ORDERED: IBUPROFEN 600 MG TAB PO PRN (05:30)
[2023-07-29] MEDS ORDERED: HYDROcodone-ACET 5/325MG TAB PO PRN (05:30)
[2023-07-29 05:49] LABS: Basophils # (auto) 0.5 10 ^3/uL (0-0.2); Eosinophils # (auto) 0 10 ^3/uL (0-0.8); Eosinophils % (auto) 0.3 % (0.0-7.0); Hematocrit 34.2 % (36.0-46.0); Hemoglobin 13.3 g/dL (12.2-16.2); Lymphocytes # (auto) 1.5 10 ^3/uL (0.4-5.4); Mean Corpuscular Hemoglobin 33.1 pg (28.0-32.0); Mean Corpuscular Volume 84.9 fL (80.0-100.0); Monocytes # (auto) 0.7 10 ^3/uL (0-1.3); Monocytes % (auto) 11.2 % (0.0-12.0); Neutrophils # (auto) 3.4 10 ^3/uL (1.6-8.6); Neutrophils % (auto) 55.5 % (37.0-80.0); Nucleated Red Blood Cells % 0.3 %; Red Blood Cells 4.03 10^6/uL (4.0-5.20); Red Cell Distribution Width 16.2 % (11.8-14.3); White Blood Cell 6.1 10^3/uL (4.4-10.8)
[2023-07-29] MEDS: SODIUM CHLORIDE 0.9% 1,000 ML IV SCH ×2 (05:58→22:10)
[2023-07-29 06:52] LABS: Mean Corpuscular Hgb Conc. 31.3 g/dL (32.0-36.0)
[2023-07-29] MEDS: LEVOTHYROXINE SODIUM 50 MCG TAB PO SCH (06:53)
[2023-07-29] MEDS: InsuLIN REG 1unit/0.01ml Soln (100units/ml) SC SCH ×2 (09:10→12:00)
[2023-07-29] MEDS: ACCU-CHEK COMFORT CURVE STRIP VI SCH ×10 (09:12→22:30)
[2023-07-29 10:25] LABS: Chloride 102 mmol/L (98-107)
[2023-07-29 10:28] LABS: Calcium 8.7 mg/dL (8.5-10.1)
[2023-07-29 10:33] LABS: Alkaline Phosphatase 94 U/L (46-116); Glucose 211 mg/dL (74-106)
[2023-07-29 11:07] LABS: Alanine Aminotransferase 23 U/L (7-40); Albumin 4.6 g/dL (3.2-4.8); Anion Gap 22.00001 (5-15); Aspartate Aminotransferase 124 U/L (13-40); BUN/Creatinine Ratio 14.3 (10.0-20.0); Blood Urea Nitrogen 10 mg/dL (9-23); Total Protein 7.6 g/dL (5.7-8.2)
[2023-07-29 11:31] LABS: Sodium 134 mmol/L (136-145)
[2023-07-29 11:34] LABS: Carbon Dioxide < 10 mmol/L (20-30); Potassium 6.3 mmol/L (3.5-5.1)
[2023-07-29] MEDS ORDERED: SODIUM BICARBONATE 8.4% INJ 50ML SYRINGE IV ONE (12:00)
[2023-07-29] MEDS ORDERED: SODIUM ZIRCONIUM CYCL 10 GM PAK PO ONE (12:00)
[2023-07-29] MEDS ORDERED: FUROSEMIDE 40 MG/4 ML VIAL IV ONE (12:00)
[2023-07-29] MEDS ORDERED: DEXTROSE (50%) 50ML SYRG IV ONE (12:00)
[2023-07-29] MEDS ORDERED: INSULIN LANTUS (GLARGINE) 1 /0.01ml (100units/ml) SC ONE (12:00)
[2023-07-29] MEDS: INSULIN DRIP 100 UNIT/100ML 100 ML IV SCH (12:00)
[2023-07-29] MEDS ORDERED: InsuLIN REG 1unit/0.01ml Soln (100units/ml) IV ONE (12:00)
[2023-07-29 17:35] LABS: Base Excess 2.3 mmol/L (-2.0-2.0)
[2023-07-29 18:28] LABS: Chloride 99 mmol/L (98-107); Sodium 132 mmol/L (136-145)
[2023-07-29 18:29] LABS: Calcium 8.6 mg/dL (8.5-10.1)
[2023-07-29 18:33] LABS: Anion Gap 23.00001 (5-15)
[2023-07-29 18:34] LABS: Glucose 117 mg/dL (74-106)
[2023-07-29 18:35] LABS: Potassium 4.7 mmol/L (3.5-5.1)
[2023-07-29 18:36] LABS: Carbon Dioxide < 10 mmol/L (20-30)
[2023-07-29 18:40] LABS: Blood Urea Nitrogen 8 mg/dL (9-23)
[2023-07-29 19:30] VITALS: PULSE 57; RESP 16; O2SAT 98
[2023-07-29 22:17] LABS: Chloride 100 mmol/L (98-107); Sodium 134 mmol/L (136-145)
[2023-07-29 22:18] LABS: Calcium 8.5 mg/dL (8.7-10.4)
[2023-07-29 22:23] LABS: Glucose 156 mg/dL (74-106)
[2023-07-29 22:28] LABS: Anion Gap 24.00001 (5-15)
[2023-07-29 22:29] LABS: BUN/Creatinine Ratio 9.1 (10.0-20.0); Blood Urea Nitrogen < 5 mg/dL (9-23); Carbon Dioxide < 10 mmol/L (20-30); Potassium 3.6 mmol/L (3.5-5.1)
[2023-07-30] MEDS ORDERED: SODIUM BICARBONATE 8.4 % INJ 50ML VIAL IV ONE
[2023-07-30] MEDS: ACCU-CHEK COMFORT CURVE STRIP VI SCH ×13 (01:30→22:00)
[2023-07-30 02:48] LABS: Chloride 101 mmol/L (98-107); Sodium 135 mmol/L (136-145)
[2023-07-30 02:50] LABS: Potassium 3.4 mmol/L (3.5-5.1)
[2023-07-30 02:51] LABS: Anion Gap 21 (5-15); Calcium 8.3 mg/dL (8.7-10.4); Carbon Dioxide 13 mmol/L (20-30)
[2023-07-30 02:56] LABS: Glucose 144 mg/dL (74-106)
[2023-07-30 03:16] LABS: BUN/Creatinine Ratio 9.6 (10.0-20.0); Blood Urea Nitrogen < 5 mg/dL (9-23)
[2023-07-30 05:37] LABS: Albumin 3.6 g/dL (3.2-4.8); Anion Gap 22 (5-15); Calcium 8.4 mg/dL (8.7-10.4); Carbon Dioxide 11 mmol/L (20-30); Chloride 102 mmol/L (98-107); Glucose 131 mg/dL (74-106); Sodium 135 mmol/L (136-145)
[2023-07-30 05:38] LABS: Bilirubin, Total 1.8 mg/dL (0.2-1.0)
[2023-07-30 05:45] LABS: Basophils # (auto) 0.1 10 ^3/uL (0-0.2); Basophils % (auto) 1.7 % (0.0-2.0); Eosinophils # (auto) 0.1 10 ^3/uL (0-0.8); Eosinophils % (auto) 1.6 % (0.0-7.0); Hematocrit 34.7 % (36.0-46.0); Lymphocytes # (auto) 2.1 10 ^3/uL (0.4-5.4); Lymphocytes % (auto) 30.2 % (10.0-50.0); Mean Corpuscular Volume 83.5 fL (80.0-100.0); Monocytes # (auto) 0.2 10 ^3/uL (0-1.3); Neutrophils # (auto) 4.4 10 ^3/uL (1.6-8.6); Neutrophils % (auto) 63.5 % (37.0-80.0); Nucleated Red Blood Cells % 0.8 %; Red Blood Cells 4.15 10^6/uL (4.0-5.20); Red Cell Distribution Width 16.6 % (11.8-14.3); White Blood Cell 6.9 10^3/uL (4.4-10.8)
[2023-07-30 05:57] LABS: Alanine Aminotransferase 13 U/L (7-40); Alkaline Phosphatase 100 U/L (46-116); Aspartate Aminotransferase 41 U/L (13-40); Potassium 3.6 mmol/L (3.5-5.1); Total Protein 5.7 g/dL (5.7-8.2)
[2023-07-30 06:13] LABS: Blood Urea Nitrogen < 5 mg/dL (9-23)
[2023-07-30] MEDS: SODIUM CHLORIDE 0.9% 1,000 ML IV SCH (06:15)
[2023-07-30 07:31] LABS: Base Excess 2.2 mmol/L (-2.0-2.0)
[2023-07-30 07:52] LABS: Mean Corpuscular Hemoglobin 27.3 pg (28.0-32.0); Mean Corpuscular Hgb Conc. 32.2 g/dL (32.0-36.0)
[2023-07-30] MEDS: LEVOTHYROXINE SODIUM 50 MCG TAB PO SCH (08:26)
[2023-07-30 08:44] VITALS: PULSE 57; RESP 14; O2SAT 95
[2023-07-30] MEDS: cefTRIAXone 1GM/50ML D5W 50 ML IV SCH (09:23)
[2023-07-30] MEDS ORDERED: INSULIN LANTUS (GLARGINE) 1 /0.01ml (100units/ml) SC SCH (10:00)
[2023-07-30 10:55] LABS: Chloride 104 mmol/L (98-107); Sodium 138 mmol/L (136-145)
[2023-07-30 10:56] LABS: Anion Gap 17 (5-15); Calcium 8.5 mg/dL (8.5-10.1); Carbon Dioxide 17 mmol/L (20-30)
[2023-07-30 11:01] LABS: Glucose 153 mg/dL (74-106)
[2023-07-30 11:02] LABS: BUN/Creatinine Ratio 12.5 (10.0-20.0); Blood Urea Nitrogen 8 mg/dL (9-23); Potassium 3.8 mmol/L (3.5-5.1)
[2023-07-30] MEDS: INSULIN DRIP 100 UNIT/100ML 100 ML IV SCH (12:00)
[2023-07-30 14:50] LABS: Chloride 102 mmol/L (98-107); Potassium 3.2 mmol/L (3.5-5.1); Sodium 139 mmol/L (136-145)
[2023-07-30 14:51] LABS: Anion Gap 9 (5-15); Calcium 8.4 mg/dL (8.7-10.4); Carbon Dioxide 28 mmol/L (20-30)
[2023-07-30 14:56] LABS: Blood Urea Nitrogen 13 mg/dL (9-23); Glucose 119 mg/dL (74-106)
[2023-07-30] MEDS ORDERED: INSULIN LANTUS (GLARGINE) 1 /0.01ml (100units/ml) SC ONE (15:30)
[2023-07-30] MEDS ORDERED: DEXTROSE (50%) 50ML SYRG IV PRN (15:30)
[2023-07-30] MEDS: InsuLIN REG 1unit/0.01ml Soln (100units/ml) SC SCH ×2 (17:32→22:47)
[2023-07-30 19:30] VITALS: PULSE 74; RESP 18; O2SAT 97
[2023-07-31 05:26] LABS: Basophils # (auto) 0.1 10 ^3/uL (0-0.2); Eosinophils # (auto) 0.1 10 ^3/uL (0-0.8); Eosinophils % (auto) 1.3 % (0.0-7.0); Hematocrit 37.5 % (36.0-46.0); Hemoglobin 12.9 g/dL (12.2-16.2); Lymphocytes # (auto) 1.8 10 ^3/uL (0.4-5.4); Mean Corpuscular Hemoglobin 29.3 pg (28.0-32.0); Mean Corpuscular Hgb Conc. 34.5 g/dL (32.0-36.0); Mean Corpuscular Volume 84.8 fL (80.0-100.0); Monocytes # (auto) 0.1 10 ^3/uL (0-1.3); Monocytes % (auto) 2.2 % (0.0-12.0); Neutrophils # (auto) 4.1 10 ^3/uL (1.6-8.6); Neutrophils % (auto) 65.5 % (37.0-80.0); Nucleated Red Blood Cells % 0.8 %; Red Blood Cells 4.42 10^6/uL (4.0-5.20); Red Cell Distribution Width 16.2 % (11.8-14.3); White Blood Cell 6.2 10^3/uL (4.4-10.8)
[2023-07-31 05:41] LABS: Albumin 3.4 g/dL (3.2-4.8); Alkaline Phosphatase 98 U/L (46-116); Anion Gap 21 (5-15); Calcium 8.4 mg/dL (8.7-10.4); Carbon Dioxide 14 mmol/L (20-30); Chloride 103 mmol/L (98-107); Glucose 202 mg/dL (74-106); Sodium 138 mmol/L (136-145)
[2023-07-31 05:42] LABS: Bilirubin, Total 1.9 mg/dL (0.2-1.0); Total Protein 5.8 g/dL (5.7-8.2)
[2023-07-31 06:03] LABS: Alanine Aminotransferase 11 U/L (7-40); Aspartate Aminotransferase 41 U/L (13-40); Potassium 3.7 mmol/L (3.5-5.1)
[2023-07-31 06:06] LABS: BUN/Creatinine Ratio 6.4 (10.0-20.0); Blood Urea Nitrogen < 5 mg/dL (9-23)
[2023-07-31] MEDS: InsuLIN REG 1unit/0.01ml Soln (100units/ml) SC SCH ×4 (06:50→21:20)
[2023-07-31] MEDS: ACCU-CHEK COMFORT CURVE STRIP VI SCH ×4 (06:50→22:07)
[2023-07-31] MEDS: LEVOTHYROXINE SODIUM 50 MCG TAB PO SCH (06:51)
[2023-07-31] MEDS: SODIUM CHLORIDE 0.9% 1,000 ML IV SCH ×2 (06:54→22:05)
[2023-07-31 07:52] LABS: Large Platelets FEW; Platelet Estimate Decreased
[2023-07-31] MEDS: cefTRIAXone 1GM/50ML D5W 50 ML IV SCH (09:03)
[2023-07-31 16:29] VITALS: BP 109/66; PULSE 61; RESP 16; TEMP 98.1; O2SAT 100
[2023-07-31 16:30] VITALS: BP 109/66; PULSE 61; TEMP 98.1; O2SAT 100
[2023-07-31] MEDS: metFORMIN HYDROCHLORIDE 500 MG TAB PO SCH (17:17)
[2023-07-31 20:00] VITALS: BP 104/65; PULSE 56; PULSE 58; RESP 24; TEMP 98; O2SAT 98
[2023-07-31 22:00] VITALS: BP 104/65; PULSE 56; RESP 26; TEMP 98; O2SAT 98
[2023-07-31] MEDS ORDERED: INSULIN LANTUS (GLARGINE) 1 /0.01ml (100units/ml) SC SCH (22:00)
[2023-07-31] MEDS: ATORVASTATIN 20 MG TAB PO SCH (22:00)
[2023-08-01] MEDS: SODIUM CHLORIDE 0.9% 1,000 ML IV SCH (02:53)
[2023-08-01 05:00] VITALS: BP 103/70; PULSE 62; RESP 20; TEMP 97.8; O2SAT 98
[2023-08-01] MEDS: InsuLIN REG 1unit/0.01ml Soln (100units/ml) SC SCH ×4 (06:45→21:34)
[2023-08-01] MEDS: LEVOTHYROXINE SODIUM 50 MCG TAB PO SCH (06:48)
[2023-08-01] MEDS: ACCU-CHEK COMFORT CURVE STRIP VI SCH ×4 (06:51→21:37)
[2023-08-01 08:00] VITALS: PULSE 52; PULSE 58; RESP 17; O2SAT 98
[2023-08-01] MEDS: metFORMIN HYDROCHLORIDE 500 MG TAB PO SCH ×2 (08:41→17:06)
[2023-08-01] MEDS: cefTRIAXone 1GM/50ML D5W 50 ML IV SCH (08:42)
[2023-08-01 09:00] VITALS: BP 101/56; PULSE 58; RESP 17; TEMP 97.8; O2SAT 98
[2023-08-01] MEDS: GABAPENTIN 100 MG CAP PO SCH (11:10)
[2023-08-01 13:00] VITALS: BP 119/71; PULSE 64; RESP 19; TEMP 98.4; O2SAT 98
[2023-08-01] MEDS: LEVOTHYROXINE SODIUM 100 MCG/5 ML INJ IV ONE ×2 (15:15→17:06)
[2023-08-01 16:42] VITALS: BP 105/61; PULSE 59; RESP 18; TEMP 98.5; O2SAT 98
[2023-08-01] MEDS ORDERED: LORazepam 2MG/ML-1ML VIAL IV ONE (17:00)
[2023-08-01] MEDS ORDERED: LEVOTHYROXINE SODIUM 100 MCG/5 ML INJ IV ONE (17:00)
[2023-08-01] MEDS ORDERED: GADOTERATE MEG 10 MMOL/20ml INJ (0.5MMOL/ml) IV ONE (17:01)
[2023-08-01 20:00] VITALS: PULSE 70; RESP 16; O2SAT 97
[2023-08-01] MEDS: ATORVASTATIN 20 MG TAB PO SCH (21:15)
[2023-08-01] MEDS: INSULIN LANTUS (GLARGINE) 1 /0.01ml (100units/ml) SC SCH (21:19)
[2023-08-02] VITALS (7 sets, daily range): BP systolic 106–115; BP diastolic 62–73; PULSE 55–69; RESP 16–20; TEMP 97.8–98.4; O2SAT 94–98
[2023-08-02] MEDS: ACCU-CHEK COMFORT CURVE STRIP VI SCH ×4 (06:11→21:05)
[2023-08-02] MEDS: LEVOTHYROXINE SODIUM 100 MCG TAB PO SCH (06:11)
[2023-08-02] MEDS: InsuLIN REG 1unit/0.01ml Soln (100units/ml) SC SCH ×4 (06:18→21:11)
[2023-08-02] MEDS: metFORMIN HYDROCHLORIDE 500 MG TAB PO SCH ×2 (08:00→17:55)
[2023-08-02 08:01] LABS: Anion Gap 11 (5-15); Carbon Dioxide 18 mmol/L (20-30); Chloride 106 mmol/L (98-107); Potassium 4.1 mmol/L (3.5-5.1); Sodium 135 mmol/L (136-145)
[2023-08-02 08:02] LABS: Calcium 8.8 mg/dL (8.5-10.1)
[2023-08-02 08:06] LABS: Glucose 120 mg/dL (74-106)
[2023-08-02 08:07] LABS: BUN/Creatinine Ratio 10.4 (10.0-20.0); Blood Urea Nitrogen 7 mg/dL (9-23)
[2023-08-02 08:08] LABS: Cholesterol 371 mg/dL (< 200); HDL Cholesterol 27 mg/dL (40-59)
[2023-08-02 08:28] LABS: Triglycerides 1476 mg/dL (< 150)
[2023-08-02 09:12] LABS: Magnesium 1.7 mg/dL (1.6-2.6)
[2023-08-02] MEDS: cefTRIAXone 1GM/50ML D5W 50 ML IV SCH (09:20)
[2023-08-02] MEDS: GABAPENTIN 100 MG CAP PO SCH (09:20)
[2023-08-02] MEDS ORDERED: GEMFIBROZIL 600 MG TAB PO ONE (11:00)
[2023-08-02] MEDS: GEMFIBROZIL 600 MG TAB PO SCH (20:59)
[2023-08-02] MEDS: ATORVASTATIN 20 MG TAB PO SCH (20:59)
[2023-08-02] MEDS: INSULIN LANTUS (GLARGINE) 1 /0.01ml (100units/ml) SC SCH (21:05)
[2023-08-03 05:00] VITALS: BP 101/60; PULSE 60; RESP 18; TEMP 98.3; O2SAT 97
[2023-08-03] MEDS: ACCU-CHEK COMFORT CURVE STRIP VI SCH ×4 (06:15→21:48)
[2023-08-03] MEDS: LEVOTHYROXINE SODIUM 100 MCG TAB PO SCH (06:15)
[2023-08-03] MEDS: InsuLIN REG 1unit/0.01ml Soln (100units/ml) SC SCH ×4 (06:24→21:53)
[2023-08-03 06:29] LABS: Anion Gap 14 (5-15); Carbon Dioxide 19 mmol/L (20-30); Chloride 103 mmol/L (98-107); Sodium 136 mmol/L (136-145)
[2023-08-03 06:35] LABS: BUN/Creatinine Ratio 10.1 (10.0-20.0); Blood Urea Nitrogen 7 mg/dL (9-23); Glucose 158 mg/dL (74-106)
[2023-08-03 06:43] LABS: Basophils # (auto) 0 10 ^3/uL (0-0.2); Basophils % (auto) 0.5 % (0.0-2.0); Eosinophils # (auto) 0 10 ^3/uL (0-0.8); Hematocrit 35.5 % (36.0-46.0); Hemoglobin 12.2 g/dL (12.2-16.2); Lymphocytes # (auto) 1.8 10 ^3/uL (0.4-5.4); Lymphocytes % (auto) 39.4 % (10.0-50.0); Mean Corpuscular Hemoglobin 29.4 pg (28.0-32.0); Mean Corpuscular Hgb Conc. 34.4 g/dL (32.0-36.0); Mean Corpuscular Volume 85.4 fL (80.0-100.0); Monocytes # (auto) 0.2 10 ^3/uL (0-1.3); Monocytes % (auto) 4.8 % (0.0-12.0); Neutrophils # (auto) 2.5 10 ^3/uL (1.6-8.6); Neutrophils % (auto) 54.3 % (37.0-80.0); Red Blood Cells 4.16 10^6/uL (4.0-5.20); Red Cell Distribution Width 16.1 % (11.8-14.3); White Blood Cell 4.5 10^3/uL (4.4-10.8)
[2023-08-03 08:00] VITALS: BP 115/66; PULSE 59; PULSE 67; RESP 16; TEMP 98.2; O2SAT 96
[2023-08-03 09:00] VITALS: BP 115/66; PULSE 67; RESP 16; TEMP 98.2; O2SAT 96
[2023-08-03] MEDS: GEMFIBROZIL 600 MG TAB PO SCH ×2 (09:42→21:49)
[2023-08-03] MEDS: cefTRIAXone 1GM/50ML D5W 50 ML IV SCH (09:42)
[2023-08-03] MEDS: GABAPENTIN 100 MG CAP PO SCH (09:42)
[2023-08-03] MEDS: metFORMIN HYDROCHLORIDE 500 MG TAB PO SCH ×2 (09:47→18:34)
[2023-08-03] MEDS ORDERED: LEVOTHYROXINE SODIUM 100 MCG/5 ML INJ IV ONE (14:45)
[2023-08-03 17:00] VITALS: BP 100/67; PULSE 64; RESP 17; TEMP 98.4; O2SAT 97
[2023-08-03 20:00] VITALS: PULSE 73; RESP 20; O2SAT 94
[2023-08-03] MEDS: INSULIN LANTUS (GLARGINE) 1 /0.01ml (100units/ml) SC SCH (21:48)
[2023-08-03] MEDS: ATORVASTATIN 20 MG TAB PO SCH (21:49)
[2023-08-03 22:00] VITALS: BP 94/65; PULSE 66; RESP 20; TEMP 98.3; O2SAT 94
[2023-08-04] VITALS (7 sets, daily range): BP systolic 95–126; BP diastolic 56–83; PULSE 60–71; RESP 12–22; TEMP 97.7–98.6; O2SAT 95–98
[2023-08-04] MEDS: InsuLIN REG 1unit/0.01ml Soln (100units/ml) SC SCH ×4 (06:21→22:35)
[2023-08-04] MEDS: ACCU-CHEK COMFORT CURVE STRIP VI SCH ×4 (06:21→22:35)
[2023-08-04] MEDS ORDERED: LEVOTHYROXINE SODIUM 100 MCG TAB PO SCH (07:00)
[2023-08-04 08:09] LABS: Cholesterol 313 mg/dL (< 200); HDL Cholesterol 26 mg/dL (40-59)
[2023-08-04 08:17] LABS: Triglycerides 1236 mg/dL (< 150)
[2023-08-04] MEDS: GEMFIBROZIL 600 MG TAB PO SCH ×2 (09:28→22:21)
[2023-08-04] MEDS: GABAPENTIN 100 MG CAP PO SCH (09:28)
[2023-08-04] MEDS: cefTRIAXone 1GM/50ML D5W 50 ML IV SCH (09:29)
[2023-08-04] MEDS: metFORMIN HYDROCHLORIDE 500 MG TAB PO SCH ×2 (09:29→17:42)
[2023-08-04] MEDS: LEVOTHYROXINE SODIUM 100 MCG/5 ML INJ IV SCH (09:48)
[2023-08-04] MEDS: ATORVASTATIN 20 MG TAB PO SCH (22:21)
[2023-08-04] MEDS: INSULIN LANTUS (GLARGINE) 1 /0.01ml (100units/ml) SC SCH (22:35)
[2023-08-05 05:00] VITALS: BP 95/65; PULSE 62; RESP 16; TEMP 98; O2SAT 94
[2023-08-05] MEDS: ACCU-CHEK COMFORT CURVE STRIP VI SCH ×3 (06:18→17:00)
[2023-08-05] MEDS: InsuLIN REG 1unit/0.01ml Soln (100units/ml) SC SCH ×3 (06:18→17:00)
[2023-08-05] MEDS ORDERED: LEVOTHYROXINE SODIUM 100 MCG TAB PO SCH (07:00)
[2023-08-05 08:00] VITALS: PULSE 62
[2023-08-05 09:00] VITALS: BP 104/70; PULSE 62; RESP 12; TEMP 98.4; O2SAT 96
[2023-08-05] MEDS: LEVOTHYROXINE SODIUM 100 MCG/5 ML INJ IV SCH (09:32)
[2023-08-05] MEDS: GABAPENTIN 100 MG CAP PO SCH (09:32)
[2023-08-05] MEDS: GEMFIBROZIL 600 MG TAB PO SCH (09:32)
[2023-08-05] MEDS: metFORMIN HYDROCHLORIDE 500 MG TAB PO SCH ×2 (09:32→18:00)
[2023-08-05] MEDS: cefTRIAXone 1GM/50ML D5W 50 ML IV SCH (09:33)
[2023-08-05 13:00] VITALS: BP 103/66; PULSE 69; RESP 14; TEMP 98.3; O2SAT 97
[2023-08-05] MEDS ORDERED: CEPH500C PO (16:03)
[2023-08-05] MEDS ORDERED: GEMF600T PO (16:03)
[2023-08-05 17:00] VITALS: BP 106/59; PULSE 66; RESP 14; TEMP 98.6; O2SAT 96
[2023-08-05 17:25] VITALS: BP 132/65; TEMP 36.8
== END 2023-08-05 18:00 | disposition home or self-care (01) | DRG 638 ==
LOC: ER 19:31 → OVERFLOW 07-29 06:44 → EAST 07-31 16:19 → TELE-EAST 08-02 07:36
PROVIDERS: ADMIT Internal Medicine; ATTEND Internal Medicine
DX: E11.10 Type 2 diabetes mellitus with ketoacidosis without coma (principal); N17.9 Acute kidney failure, unspecified; N39.0 Urinary tract infection, site not specified; E03.9 Hypothyroidism, unspecified; E66.01 Morbid (severe) obesity due to excess calories; E87.5 Hyperkalemia; E86.0 Dehydration; Z68.37 Body mass index [BMI] 37.0-37.9, adult; D35.2 Benign neoplasm of pituitary gland; E78.1 Pure hyperglyceridemia; E87.8 Other disorders of electrolyte and fluid balance, not elsewhere classified; K76.0 Fatty (change of) liver, not elsewhere classified; H53.8 Other visual disturbances; R79.89 Other specified abnormal findings of blood chemistry; Z91.148 Patient's other noncompliance with medication regimen for other reason; Z98.51 Tubal ligation status
CPT/HCPCS: 36415; 36600; 70553; 80048; 80053; 80061; 81001; 82010; 82533; 82607; 82805; 82962; 83036; 83690; 83735; 83880; 84132; 84443; 84484; 85025; 87086; 93306; 96361; 96365; 96366; 96372; 96375; 96376; G0378; J0696; J1815; J3490

== ENCOUNTER 2025-01-21 09:08 | Inpatient (IN) | payer OTHER ==
[~2025-01-21] VITALS: Ht 160 cm; Wt 94.8 kg
[~2025-01-21 09:08] MED LIST changes: -ATO40T PO; +ATOR-507 PO; +CEPH500C PO; +GEMF600T PO
--- NOTE | 2025-01-21 09:54 | ED.PDOC ---
History of Present Illness HPI Comments 54 year old female presents to the ED with a chief complaint of facial swelling onset 1 week. Patient states she has been experiencing facial swelling for the past week, facial numbness for the past 2 days and began experiencing palpitations last night. Upon ED arrival BP was 146/89, HR 71. PMHx DM, thyroid. Denies chest pain, shortness of breath, dizziness, nausea, vomiting, diarrhea. No other symptoms or modifying factors present at this time. Chief Complaint: Face pain Time Seen by MD: 09:23 Primary Care Provider: UNKNOWN Reviewed Notes: Medications, Allergies Allergies: Coded Allergies: NO KNOWN ALLERGIES (Unverified , 04/28/15) Home Meds Active Scripts Gemfibrozil (Lopid) 600 Mg Tab, 1 TAB PO BID for 30 Days, #60 TAB 5 Refills Prov:NAGI ONTIVEROS MD 08/05/23 Cephalexin Monohydrate (Cephalexin) 500 Mg Cap, 1 CAP PO TID for 7 Days, #21 CAP Prov:NAGI ONTIVEROS MD 08/05/23 Hydrocortisone Base (CORTEF) 10 Mg Tab, 10 MG PO BID for 30 Days, #60 TAB Prov:SOTO WERNER MD 12/06/21 Cholecalciferol (VITAMIN D3) 5,000 Unit Tab, 5000 UNIT PO DAILY for 30 Days, #30 TAB Prov:SOTO WERNER MD 12/06/21 Insulin Glargine (Lantus) 100 Unit/Ml Inj, 12 UNIT SC HS for 30 Days, #30 INJ Prov:SOTO WERNER MD 12/06/21 Atorvastatin Calcium (Lipitor) 40 Mg Tab, 1 TAB PO DAILY, #30 TAB Prov:SOTO WERNER MD 12/06/21 Levothyroxine Sodium (Levothyroxine Sodium) 200 Mcg Tab, 200 MCG PO QAM for 30 Days, #30 MCG Prov:SOTO WERNER MD 12/06/21 Reported Medications Metformin Hydrochloride (Metformin Hcl) 500 Mg Tab, 1000 MG PO BID for 30 Days, MG 11/22/21 Gabapentin (Gabapentin) 100 Mg Cap, 100 MG PO DAILY for 30 Days, MG 11/22/21 Gabapentin (Gabapentin) 100 Mg Cap, 100 MG PO DAILY for 30 Days, MG 11/22/21 Information Source: Patient Mode of Arrival: Ambulatory Severity: Moderate Timing: Weeks Duration: Since onset Prehospital treatment: None Past Medical History PAST MEDICAL HISTORY: DM, Thyroid Surgical History: BTL, Tubal Ligation 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 Family History Family History: Reviewed,noncontributory to illness Social History Smoker: Non-Smoker Alcohol: Occasionally Drugs: Denies Drug Use Lives In: Home Constitutional: denies: chills, diaphoresis, fatigue, fever, malaise, sweats, weakness, others EENTM: reports: others (eyes, facial swelling); denies: blurred vision, double vision, ear bleeding, ear discharge, ear drainage, ear pain, ear ringing, eye pain, eye redness, hearing loss, mouth pain, mouth swelling, nasal discharge, nose bleeding, nose congestion, nose pain, photophobia, tearing, throat pain, throat swelling, voice changes Respiratory: denies: cough, hemoptysis, orthopnea, SOB at rest, shortness of breath, SOB with excertion, stridor, wheezing, others Cardiovascular: reports: palpitations; denies: chest pain, dizzy spells, diaphoresis, Dyspnea on exertion, edema, irregular heart beat, left arm pain, lightheadedness, PND, syncope, others Gastrointestinal: denies: abdomen distended, abdominal pain, blood streaked bowels, constipated, diarrhea, dysphagia, difficulty swallowing, hematemesis, melena, nausea, poor appetite, poor fluid intake, rectal bleeding, rectal pain, vomiting, others Genitourinary: denies: abnormal vagina bleeding, burning, dyspareunia, dysuria, flank pain, frequency, hematuria, incontinence, pain, , vagina discharge, urgency, others Neurological: reports: numbness (facial); denies: dizziness, fainting, headache, left sided numbness, left sided weakness, paresthesia, pre-existing deficit, right sided numbness, right sided weakness, seizure, speech problems, tingling, tremors, weakness, others Musculoskeletal: denies: back pain, gout, joint pain, joint swelling, muscle pain, muscle stiffness, neck pain, others Integumetry: denies: bruises, change in color, change in hair/nails, dryness, laceration, lesions, lumps, rash, wounds, others Allergic/Immunocompromised: denies: Difficulty Healing, Frequent Infections, Hives, Itching, others Hematologic/Lymphatic: denies: anemia, blood clots, easy bleeding, easy bruising, swollen glands, others Endocrine: denies: excessive hunger, excessive sweating, excessive thirst, excessive urination, flushing, intolerance to cold, intolerance to heat, unexplained weight gain, unexplained weight loss, others Psychiatric: denies: anxiety, bipolar disorder, depression, hopeless, panic disorder, schizophrenia, sleepless, suicidal, others All Other Systems: Reviewed and Negative Physical Exam General Appearance: No Apparent Distress, Normal HEENT: Normal ENT Inspection, Pharynx Normal, TMs Normal Neck: Full Range of Motion, Non-Tender, Normal, Normal Inspection Respiratory: Chest Non-Tender, Lungs Clear, No Accessory Muscle Use, No Respiratory Distress, Normal Breath Sounds Cardiovascular: No Edema, No JVD, No Murmur, No Gallop, Normal Peripheral Pulses, Regular Rate/Rhythm Breast Exam: Deferred Gastrointestinal: No Organomegaly, Non Tender, No Pulsatile Mass, Normal Bowel Sounds, Soft Genitalia: Deferred Pelvic: Deferred Rectal: Deferred Extremities: No calf tenderness, Normal capillary refill, Normal inspection, Normal range of motion, Non-tender, No pedal edema Musculoskeletal : Apperance: Normal Neurologic: Alert, heel seat fitter machine II-XII nml as Tested, No Motor Deficits, Normal Affect, Normal Mood, No Sensory Deficits Cerebellar Function: Normal Reflexes: Normal Skin: Dry, Normal Color, Warm Lymphatic: No Adenopathy Was a procedure done? Was a procedure done?: No Differential Dx Considerations may include: ACS, CVA, viral syndrome, electrolyte abnormality X-Ray, Labs, Meds, VS Vital Signs Date Time Temp Pulse Resp B/P (MAP) Pulse Ox O2 Delivery O2 Flow Rate FiO2 01/21/25 10:12 62 16 99 Room Air* 0 21 01/21/25 10:12 62 18 135/74 (94) 99 01/21/25 09:29 61 01/21/25 09:28 97.0 70 18 146/89 (108) 97 97.0 Lab Test 01/21/25 09:35 Range/Units White Blood Count 4.9 4.4-10.8 10^3/uL Red Blood Count 3.88 L 4.0-5.20 10^6/uL Hemoglobin 11.8 L 12.2-16.2 g/dL Hematocrit 35.1 L 36.0-46.0 % Mean Corpuscular Volume 90.4 80.0-100.0 fL Mean Corpuscular Hemoglobin 30.4 28.0-32.0 pg Mean Corpuscular Hemoglobin Concent 33.6 32.0-36.0 g/dL Red Cell Distribution Width 14.8 H 11.8-14.3 % Platelet Count 107 L 140-450 10^3/uL Mean Platelet Volume 10.3 6.9-10.8 fL Neutrophils (%) (Auto) 71.4 37.0-80.0 % Lymphocytes (%) (Auto) 24.0 10.0-50.0 % Monocytes (%) (Auto) 3.0 0.0-12.0 % Eosinophils (%) (Auto) 0.9 0.0-7.0 % Basophils (%) (Auto) 0.7 0.0-2.0 % Neutrophils # (Auto) 3.5 1.6-8.6 10 ^3/uL Lymphocytes # (Auto) 1.2 0.4-5.4 10 ^3/uL Monocytes # (Auto) 0.1 0-1.3 10 ^3/uL Eosinophils # (Auto) 0 0-0.8 10 ^3/uL Basophils # (Auto) 0 0-0.2 10 ^3/uL Nucleated Red Blood Cells 0.0 % Sodium Level 139 136-145 mmol/L Potassium Level 3.5 3.5-5.1 mmol/L Chloride Level 101 98-107 mmol/L Carbon Dioxide Level 25 20-31 mmol/L Anion Gap 13 5-15 Blood Urea Nitrogen 11 9-23 mg/dL Creatinine 1.09 H 0.550-1.02 mg/dL Glomerular Filtration Rate Calc 60 >90 mL/min BUN/Creatinine Ratio 10.1 10.0-20.0 Serum Glucose 115 H 74-106 mg/dL Calcium Level 9.6 8.7-10.4 mg/dL Troponin I High Sensitivity 3 L </=34 ng/L Time of 1ST Reevaluation: 09:53 Reevaluation 1ST: Unchanged Patient Education/Counseling: Diagnosis, Treatment, Prognosis Family Education/Counseling: No Family Present Additional Information The following tests were ordered, and results were reviewed by me: BMP, TROP-x3, UA, CBC, XY CHEST, CT HEAD WO CONTRAST, EKG I reviewed and agreed with the following test results read by other providers: XY CHEST, CT HEAD WO CONTRAST, I discussed treatment and results with medical personnel and: Patient Comprehensive systems review obtained and negative except for what is stated in the HPI. Departure 1 Departure Time of Disposition: 10:30 (Patient with a facial numbness concerning for TIA versus CVA versus electrolyte abnormality. Patient's labs and CT brain are benign we will admit patient for further workup) Impression: Primary Impression: Facial numbness Additional Impression: Paresthesias Disposition: ADMITTED INPATIENT Admit to: Med Surg Condition: Serious Critical Care Note Critical Care Time?: Yes Critical care comment: Concern for CVA Authorized and Performed by: Jose Velazquez MD Total critical care time: Approximately 36 minutes Due to a high probability of clinically significant, life threatening deterioration, the patient required my highest level of preparedness to intervene emergently and I personally spent this critical care time directly and personally managing the patient. This critical care time included obtaining a history; examining the patient; pulse oximetry; ordering and review of studies; arranging urgent treatment with development of a management plan; evaluation of patient's response to treatment; frequent reassessment; and, discussions with other providers. This critical care time was performed to assess and manage the high probability of imminent, life-threatening deterioration that could result in multi-organ failure. It was exclusive of separately billable procedures and treating other patients and teaching time. Please see my other sections and the rest of the note for further information on patient assessment and treatment. Stability Stability form required: No I personally scribed for JOSE VELAZQUEZ MD ([email or web address]) on 01/21/25 at 09:54. Electronically submitted by Nereyda Strauss ([email or web address]). I personally scribed for JOSE VELAZQUEZ MD ([email or web address]) on 01/21/25 at 10:05. Electronically submitted by Nereyda Strauss ([email or web address]). JOSE VELAZQUEZ MD Jan 21, 2025 09:54
[2025-01-21 10:00] LABS: Anion Gap 13 (5-15); Basophils # (auto) 0 10 ^3/uL (0-0.2); Basophils % (auto) 0.7 % (0.0-2.0); Carbon Dioxide 25 mmol/L (20-31); Chloride 101 mmol/L (98-107); Eosinophils # (auto) 0 10 ^3/uL (0-0.8); Eosinophils % (auto) 0.9 % (0.0-7.0); Hematocrit 35.1 % (36.0-46.0); Hemoglobin 11.8 g/dL (12.2-16.2); Lymphocytes # (auto) 1.2 10 ^3/uL (0.4-5.4); Mean Corpuscular Hemoglobin 30.4 pg (28.0-32.0); Mean Corpuscular Hgb Conc. 33.6 g/dL (32.0-36.0); Mean Corpuscular Volume 90.4 fL (80.0-100.0); Monocytes # (auto) 0.1 10 ^3/uL (0-1.3); Neutrophils # (auto) 3.5 10 ^3/uL (1.6-8.6); Neutrophils % (auto) 71.4 % (37.0-80.0); Platelet Count (auto) 107 10^3/uL (140-450); Potassium 3.5 mmol/L (3.5-5.1); Red Blood Cells 3.88 10^6/uL (4.0-5.20); Red Cell Distribution Width 14.8 % (11.8-14.3); Sodium 139 mmol/L (136-145); White Blood Cell 4.9 10^3/uL (4.4-10.8)
--- NOTE | 2025-01-21 10:00 | ECG ---
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
[2025-01-21 10:01] LABS: Calcium 9.6 mg/dL (8.7-10.4)
[2025-01-21 10:06] LABS: BUN/Creatinine Ratio 10.1 (10.0-20.0); Blood Urea Nitrogen 11 mg/dL (9-23)
--- NOTE | 2025-01-21 10:06 | DVH ---
EXAM: CT HEAD WITHOUT CONTRAST HISTORY: facial numbness COMPARISON: HEAD WITHOUT CONTRAST on DOS: 11/22/21 TECHNIQUE: Noncontrast axial CT images of the head were performed. Sagittal and coronal reformatted i mages were obtained. This CT exam was performed using 1 or more of the following dose reduction techn iques: Automated exposure control, adjustment of the mA and/or kv according to patient size, or the u se of iterative reconstruction techniques. Radiation Dose: CTDI volume is 55.46 mGy. Dose-length product is 889.02 mGy*cm FINDINGS: No intracranial hemorrhage, mass, midline shift, hydrocephalus, or evidence of acute large vessel inf arct. There is mucosal thickening of the left frontal, bilateral ethmoid, bilateral sphenoid, and dusty ateral maxillary sinuses. There is fluid in the right mastoid air cells and middle ear. There is flu id and sclerosis in the left mastoid air cells. The left middle ear is clear. There is mild hyperost osis frontalis interna. No cranial fracture or scalp edema. IMPRESSION: 1. No acute intracranial process. 2. Mild paranasal sinus disease. 3. Fluid and sclerosis of the bilateral mastoid air cells and fluid in the right middle ear. These f indings are suggestive of chronic mastoiditis and possible right otitis media. Consider nonemergent o tolaryngology consultation.
[2025-01-21 10:07] LABS: Glucose 115 mg/dL (74-106)
--- NOTE | 2025-01-21 10:09 | DVH ---
EXAM: XY CHEST PORTABLE HISTORY: weakness COMPARISON: Chest CT dated 11/23/2021 TECHNIQUE: Portable AP view of the chest was performed. FINDINGS: No pneumothorax, consolidative infiltrates, or pulmonary edema. The heart is not enlarged. There is t horacic degenerative disc disease. IMPRESSION: No acute intrathoracic process.
[2025-01-21 10:12] VITALS: PULSE 62; RESP 16; O2SAT 99
[2025-01-21] MEDS: SODIUM CHLORIDE 0.9% 1,000 ML IV ONE (10:38)
[2025-01-21 12:17] LABS: Urine Bacteria FEW /hpf (None Seen); Urine Blood Negative /uL (Negative); Urine Clarity Turbid (Clear); Urine Color Light-Yellow (Yellow); Urine Mucus FEW (None Seen); Urine Protein, UAD Negative (Negative); Urine Specific Gravity 1.018 (1.001-1.035); Urine Squamous Epithelial Cell MOD /hpf (<5); Urine Urobilinogen 2 mg/dL (Negative); Urine WBC 84 /HPF (0-5); Urine pH 6.5 (5.0-9.0)
[2025-01-21] MEDS ORDERED: ONDANSETRON HCL 4 MG/2 ML VIAL IV PRN (13:00)
[2025-01-21] MEDS ORDERED: DOCUSATE SOD 100 MG CAP PO PRN (13:00)
[2025-01-21] MEDS ORDERED: MORPHINE SULFATE INJ 2 MG/ml SYRG IV PRN (13:00)
[2025-01-21] MEDS ORDERED: NITROGLYCERIN 0.4 MG SL TAB SL PRN (13:00)
[2025-01-21] MEDS ORDERED: ACETAMINOPHEN 325 MG TAB PO PRN (13:00)
[2025-01-21] MEDS ORDERED: DEXTROSE (50%) 50ML SYRG IV PRN (13:15)
--- NOTE | 2025-01-21 13:15 | DVHHP2 ---
History of Present Illness Reason for Visit: facial pain and numbness History of Present Illness Ramila Rivera is a 54-year-old female with past medial history of hypothyroidism, diabetes, and hyperlipidemia, who came in for facial pain and numbness. Patient states she has been experiencing facial pain and numbness for about a week. Last night she state she felt like her heart was racing and felt palpitations. The palpitations resolved on her own. This morning she had another episode of palpitations, that did resolve on its own, but it prompted her to come to the ER. EKG in ER revealed a junctional rhythm. Cardiovascular: hyperipidemia Endocrine: Diabetes, Hypothyroidism Past Surgical History: Other (ovarian cyst removal), Tubal Ligation Family History: None Smoke: No ALCOHOL: rare Drugs: None Lives: with Family Domestic Violence: Neg Review of Systems Constitutional: Yes: Other (facial pain and numbness); No: Fever, Chills, Sweats, Weakness, Malaise Eyes: No: Pain, Vision change, Conjunctivae inflammation, Eyelid inflammation, Other, Redness ENT: Ear pain; No: Ear discharge, Nose pain, Nose discharge, Nose congestion, Mouth pain, Mouth swelling, Throat pain, Throat swelling, Other Respiratory: No: Cough, Dry, Shortness of breath, SOB with excertion, Wheezing, Hemoptysis, Pleuritic Pain, Sputum, Wheezing, Other Cardiovascular: Palpitations; No: Chest Pain, Orthopnea, Paroxysmal Noc. Dyspnea, Edema, Lt Headedness, Other Gastrointestinal: No: Nausea, Vomiting, Abdominal Pain, Diarrhea, Constipation, Melena, Hematochezia, Other Genitourinary: No Dysuria, No Frequency, No Incontinence, No Hematuria, No Retention, No Other Musculoskeletal: No: other, neck pain, shoulder pain, arm pain, back pain, hand pain, leg pain, foot pain Skin: No: Rash, Lesions, Jaundice, Bruising, Other Neurological: No: Weakness, Numbness, Incoordination, Change in speech, Confusion, Seizures, Other Allergies: Coded Allergies: NO KNOWN ALLERGIES (Unverified , 04/28/15) Exam Vital Signs Vital Signs Date Time Temp Pulse Resp B/P (MAP) Pulse Ox O2 Delivery O2 Flow Rate FiO2 01/21/25 11:39 60 01/21/25 10:12 16 99 Room Air* 0 21 01/21/25 10:12 135/74 (94) 01/21/25 09:28 97.0 97.0 General Appearance: Alert, Oriented X3, Cooperative, mild distress HEENT: Atraumatic, PERRLA Respiratory: Clear to auscultation, Normal air movement Cardiovascular: Normal S1, Normal S2, Other (junctional) Abdominal: Normal bowel sounds, Soft, No tenderness, No hepatospenomegaly Extremities: No clubbing, No cyanosis, No edema, Normal pulses, No tenderness/swelling Skin: No rashes, No breakdown, No significant lesion Neuro: Normal gait, Normal speech, Strength at 5/5 X4 ext Psych/Mental Status: Mental status NL, Mood NL Labs/Xrays Labs Test 01/21/25 12:37 01/21/25 11:49 01/21/25 09:35 Range/Units Urine Color Light-yellow Yellow Urine Clarity Turbid H Clear Urine pH 6.5 5.0-9.0 Urine Specific [place] 1.018 1.001-1.035 Urine Protein Negative Negative Urine Ketones Negative Negative Urine Blood Negative Negative /uL Urine Nitrite Negative Negative Urine Bilirubin Negative Negative Urine Urobilinogen 2 H Negative mg/dL Urine Leukocyte Esterase 3+ Negative /uL Urine RBC 5 0 - 4 /hpf Urine Microscopic WBC 84 H 0-5 /HPF Urine Squamous Epithelial Cells Mod <5 /hpf Urine Bacteria Few H None Seen /hpf Urine Mucus Few None Seen Urine Glucose Normal Normal mg/dL White Blood Count 4.9 4.4-10.8 10^3/uL Red Blood Count 3.88 L 4.0-5.20 10^6/uL Hemoglobin 11.8 L 12.2-16.2 g/dL Hematocrit 35.1 L 36.0-46.0 % Mean Corpuscular Volume 90.4 80.0-100.0 fL Mean Corpuscular Hemoglobin 30.4 28.0-32.0 pg Mean Corpuscular Hemoglobin Concent 33.6 32.0-36.0 g/dL Red Cell Distribution Width 14.8 H 11.8-14.3 % Platelet Count 107 L 140-450 10^3/uL Mean Platelet Volume 10.3 6.9-10.8 fL Neutrophils (%) (Auto) 71.4 37.0-80.0 % Lymphocytes (%) (Auto) 24.0 10.0-50.0 % Monocytes (%) (Auto) 3.0 0.0-12.0 % Eosinophils (%) (Auto) 0.9 0.0-7.0 % Basophils (%) (Auto) 0.7 0.0-2.0 % Neutrophils # (Auto) 3.5 1.6-8.6 10 ^3/uL Lymphocytes # (Auto) 1.2 0.4-5.4 10 ^3/uL Monocytes # (Auto) 0.1 0-1.3 10 ^3/uL Eosinophils # (Auto) 0 0-0.8 10 ^3/uL Basophils # (Auto) 0 0-0.2 10 ^3/uL Nucleated Red Blood Cells 0.0 % Sodium Level 139 136-145 mmol/L Potassium Level 3.5 3.5-5.1 mmol/L Chloride Level 101 98-107 mmol/L Carbon Dioxide Level 25 20-31 mmol/L Anion Gap 13 5-15 Blood Urea Nitrogen 11 9-23 mg/dL Creatinine 1.09 H 0.550-1.02 mg/dL Glomerular Filtration Rate Calc 60 >90 mL/min BUN/Creatinine Ratio 10.1 10.0-20.0 Serum Glucose 115 H 74-106 mg/dL Calcium Level 9.6 8.7-10.4 mg/dL EXAM: CT HEAD WITHOUT CONTRAST FINDINGS: No intracranial hemorrhage, mass, midline shift, hydrocephalus, or evidence of acute large vessel infarct. There is mucosal thickening of the left frontal, bilateral ethmoid, bilateral sphenoid, and bilateral maxillary sinuses. There is fluid in the right mastoid air cells and middle ear. There is fluid and sclerosis in the left mastoid air cells. The left middle ear is clear. There is mild hyperostosis frontalis interna. No cranial fracture or scalp edema. IMPRESSION: 1. No acute intracranial process. 2. Mild paranasal sinus disease. 3. Fluid and sclerosis of the bilateral mastoid air cells and fluid in the right middle ear. These findings are suggestive of chronic mastoiditis and possible right otitis media. Consider nonemergent otolaryngology consultation. EXAM: XY CHEST PORTABLE FINDINGS: No pneumothorax, consolidative infiltrates, or pulmonary edema. The heart is not enlarged. There is thoracic degenerative disc disease. IMPRESSION: No acute intrathoracic process. Assessment/Plan Assessment/Plan Assessment: Facial numbness and swelling, Palpitations, Junctional EKG rhythm, Diabetes, Hypothyroidism, Hyperlipidemia, Plan: Admit to Tele, IV antibiotics, Continuous EKG monitoring, Consider cardiology consult, Consider ECHO, EKG in morning, Accu checks Q AC&HS with sliding scale, Home medications reconciled, Plan discussed with: Patient My Orders Orders - KEISHA CHINO Procedure Category Date Status Time Admit ADMIT 01/21/25 Verified 12:50 Code Status CODE 01/21/25 Verified 12:50 2 Gm Sodium Diet DIET 01/21/25 Verified Lunch Hydrocodone-Acet PHA 01/21/25 Verified 5/325mg Tab (Vilas 13:00 Ondansetron Hcl PHA 01/21/25 Verified (Zofran) 13:00 Docusate Sodium PHA 01/21/25 Verified Capsule (Colace 13:00 Complete Blood Count LAB 01/22/25 Verified 04:00 Comprehensive LAB 01/22/25 Verified Metabolic Panel 04:00 Condition: Serious DAVID 01/21/25 Verified 12:50 Acetaminophen Tablet PHA 01/21/25 Verified (Tylenol Tablet) 13:00 Nitroglycerin PHA 01/21/25 Verified Sublingual (Ntrostat 13:00 Morphine Sulfate PHA 01/21/25 Verified Injection 13:00 Stat Ekg For Chest DAVID 01/21/25 Verified Pain 12:50 Notify Md Of Changes DAVID 01/21/25 Verified From Base 12:50 Level Vial Marker For DAVID 01/21/25 Verified 24 Hours 12:50 Emergency Dysrhythmia DAVID 01/21/25 Verified Protocol 12:50 Rhythm Strips Once DAVID 01/21/25 Verified Every Shift 12:50 Oxygen By Nasal RT 01/21/25 Verified Cannula 12:50 Insulin Lantus PHA 01/21/25 Verified (Glargine) (Lantus) 22:00 (Nf) Atorvastatin PHA 01/22/25 Verified Calcium (Lipitor) 10:00 (Nf) Levothyroxine PHA 01/22/25 Verified Sodium 07:00 Date of Service: Jan 21, 2025 Billing Provider: KEISHA CHINO Common Visit Codes: [id number] INP/OBS CARE (MOD) KEISHA CHINO Jan 21, 2025 13:15
[2025-01-21] MEDS: cefTRIAXone 1GM/50ML D5W 50 ML IV ONE (14:24)
[2025-01-21] MEDS: ACCU-CHEK COMFORT CURVE STRIP VI SCH (17:45)
[2025-01-21] MEDS: InsuLIN REG 1unit/0.01ml Soln (100units/ml) SC SCH ×2 (17:45→22:00)
[2025-01-21 22:41] VITALS: BP 99/58; PULSE 58; RESP 18; TEMP 97.3; O2SAT 98
[2025-01-21] MEDS: ATORVASTATIN 20 MG TAB PO SCH (23:15)
[2025-01-21] MEDS: INSULIN LANTUS (GLARGINE) 1 /0.01ml (100units/ml) SC SCH (23:19)
[2025-01-21] MEDS ORDERED: ATOR40TA52 PO (23:55)
[2025-01-22] VITALS (9 sets, daily range): BP systolic 92–142; BP diastolic 45–78; PULSE 56–67; RESP 16–19; TEMP 97.3–97.5; O2SAT 94–100
[2025-01-22 05:50] LABS: Basophils # (auto) 0 10 ^3/uL (0-0.2); Basophils % (auto) 0.7 % (0.0-2.0); Eosinophils # (auto) 0.1 10 ^3/uL (0-0.8); Eosinophils % (auto) 1.2 % (0.0-7.0); Hematocrit 33.3 % (36.0-46.0); Hemoglobin 11.1 g/dL (12.2-16.2); Lymphocytes # (auto) 1.4 10 ^3/uL (0.4-5.4); Mean Corpuscular Hemoglobin 30.5 pg (28.0-32.0); Mean Corpuscular Hgb Conc. 33.4 g/dL (32.0-36.0); Mean Corpuscular Volume 91.3 fL (80.0-100.0); Monocytes # (auto) 0.2 10 ^3/uL (0-1.3); Monocytes % (auto) 3.9 % (0.0-12.0); Neutrophils # (auto) 3.7 10 ^3/uL (1.6-8.6); Neutrophils % (auto) 68.2 % (37.0-80.0); Nucleated Red Blood Cells % 0.1 %; Platelet Count (auto) 91 10^3/uL (140-450); Red Blood Cells 3.65 10^6/uL (4.0-5.20); Red Cell Distribution Width 14.8 % (11.8-14.3); White Blood Cell 5.4 10^3/uL (4.4-10.8)
[2025-01-22] MEDS: LEVOTHYROXINE SODIUM 100 MCG TAB PO SCH (06:05)
[2025-01-22 06:10] LABS: Alanine Aminotransferase 13 U/L (7-40); Albumin 4.2 g/dL (3.2-4.8); Alkaline Phosphatase 89 U/L (46-116); Anion Gap 13 (5-15); Aspartate Aminotransferase 23 U/L (13-40); Blood Urea Nitrogen 14 mg/dL (9-23); Calcium 9.2 mg/dL (8.7-10.4); Carbon Dioxide 24 mmol/L (20-31); Chloride 102 mmol/L (98-107); Potassium 3.7 mmol/L (3.5-5.1); Sodium 139 mmol/L (136-145); Total Protein 6.8 g/dL (5.7-8.2)
[2025-01-22 06:16] LABS: Bilirubin, Total 1.6 mg/dL (0.2-1.0); Glucose 114 mg/dL (74-106)
--- NOTE | 2025-01-22 08:05 | ECG ---
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
[2025-01-22] MEDS: cefTRIAXone 1GM/50ML D5W 50 ML IV SCH (09:56)
[2025-01-23] VITALS (8 sets, daily range): BP systolic 93–107; BP diastolic 42–63; PULSE 57–74; RESP 17–18; TEMP 97.4–98.4; O2SAT 91–100
--- NOTE | 2025-01-23 13:23 | DVHPN2 ---
Reviewed: Care Plan Changes from previous H/P or p: No Changes Eyes: No Pain, No Vision change, No Conjunctivae inflammation, No Eyelid inflammation, No Other, No Redness ENT: Ear pain; No Ear discharge, No Nose pain, No Nose discharge, No Nose congestion, No Mouth pain, No Mouth swelling, No Throat pain, No Throat swelling, No Other Cardiovascular: No Chest Pain; Palpitations; No Orthopnea, No Paroxysmal Noc. Dyspnea, No Edema, No Lt Headedness, No Other Respiratory: No Cough, No Dry, No Shortness of breath, No SOB with excertion, No Wheezing, No Hemoptysis, No Pleuritic Pain, No Sputum, No Other Gastrointestinal: No Nausea, No Vomiting, No Abdominal Pain, No Diarrhea, No Constipation, No Melena, No Hematochezia, No Other Genitourinary: No Dysuria, No Frequency, No Incontinence, No Hematuria, No Retention, No Other Musculoskeletal: No other, No neck pain, No shoulder pain, No arm pain, No back pain, No hand pain, No leg pain, No foot pain Skin: No Rash, No Lesions, No Jaundice, No Bruising, No Other Objective Vitals Vital Signs Date Time Temp Pulse Resp B/P (MAP) Pulse Ox O2 Delivery O2 Flow Rate FiO2 01/23/25 12:52 97.8 65 18 103/42 (62) 99 97.8 01/23/25 08:00 Room Air* 0 21 Intake/Output Intake and Output 01/23/25 07:00 Intake Total 1340 ml Balance 1340 ml Intake Oral 1290 ml IV Total 50 ml # Voids 7 # Bowel Movements 1 Medications Current Medications Medications Dose Ordered Sig/Marisol Route Start Time Stop Time Status Last Admin Dose Admin Acetaminophen/ Hydrocodone Bitart 1 tab Q4HP PRN PO 01/21/25 13:00 Ondansetron HCl 4 mg Q4HP PRN IV 01/21/25 13:00 Docusate Sodium 100 mg BIDPRN PRN PO 01/21/25 13:00 Acetaminophen 650 mg Q6HP PRN PO 01/21/25 13:00 Nitroglycerin 0.4 mg Q5MINP PRN SL 01/21/25 13:00 Morphine Sulfate 2 mg Q30M PRN IV 01/21/25 13:00 Insulin Glargine 12 units HS SC 01/21/25 22:00 01/22/25 21:54 12 UNITS Atorvastatin Calcium 40 mg HS PO 01/21/25 22:00 01/22/25 21:54 40 MG Levothyroxine Sodium 200 mcg QAM PO 01/22/25 07:00 01/23/25 06:49 200 MCG Ceftriaxone Sodium 50 ml @ 100 mls/hr DAILY@09 IV 01/22/25 09:00 01/23/25 10:19 100 MLS/HR Diagnostic Test (Pha) 1 strip ACHS 01/21/25 17:00 01/23/25 11:30 1 STRIP Insulin Human Regular HS SC 01/21/25 22:00 01/22/25 21:53 3 UNITS Insulin Human Regular AC SC 01/21/25 17:00 01/22/25 12:29 2 UNITS Dextrose 50 ml UD PRN IV 01/21/25 13:15 Laboratory Results Laboratory Tests 01/22/25 05:19 Urinalysis Test 01/21/25 11:49 Urine Color Light-yellow (Yellow) Urine Clarity Turbid (Clear) H Urine pH 6.5 (5.0-9.0) Urine Specific [place] 1.018 (1.001-1.035) Urine Protein Negative (Negative) Urine Ketones Negative (Negative) Urine Blood Negative /uL (Negative) Urine Nitrite Negative (Negative) Urine Bilirubin Negative (Negative) Urine Urobilinogen 2 mg/dL (Negative) H Urine Leukocyte Esterase 3+ /uL (Negative) Urine RBC 5 /hpf (0 - 4) Urine Microscopic WBC 84 /HPF (0-5) H Urine Squamous Epithelial Cells Mod /hpf (<5) Urine Bacteria Few /hpf (None Seen) H Urine Mucus Few (None Seen) Urine Glucose Normal mg/dL (Normal) Labs and/or images reviewed: Labs reviewed by me, Image(s) reviewed by me Assessment/Plan Assessment/Plan Facial numbness and swelling, Palpitations, Junctional EKG rhythm, Diabetes, Hypothyroidism, severe suspected myxedema Hyperlipidemia, Plan: Continuous EKG monitoring, Consider cardiology consult, Consider ECHO, EKG in morning, Accu checks Q AC&HS with sliding scale, Home medications reconciled, Plan discussed with: Patient My Orders Orders - BALBIR REAVES DO Procedure Category Date Status Time * Cardiology Consult CONS 01/23/25 Transmitted 11:51 Date of Service: Jan 22, 2025 Billing Provider: BALBIR REAVES DO Common Visit Codes: [id number] INP/OBS CARE(HIGH) BALBIR REAVES DO Jan 23, 2025 13:23
[2025-01-23 14:03] LABS: Cholesterol 332 mg/dL (< 200); HDL Cholesterol 35 mg/dL (40-59); Triglycerides 1162 mg/dL (< 150)
[2025-01-23 15:21] LABS: Free T3 0.33 pg/mL (2.3-4.2); Free T4 (Free Thyroxine) 0.42 ng/dL (0.89-1.76)
--- NOTE | 2025-01-23 15:23 | DVHINCON2 ---
Date Seen: Jan 23, 2025 Referring Physician MD Evi Reason for Consultation Palpitations, junctional rhythm, angioedema History of Present Illness This is a 54-year-old female patient who presents to emergency room with chief complaint of facial swelling, facial numbness, blurry vision and visual changes for approximately one week. The patient also mentions palpitations that began one day prior to emergency room arrival. Initial twelve lead electrocardiogram reveals normal sinus rhythm with prolonged QTc interval (low voltage). Troponin levels have been negative. The patient denies any cardiac symptoms at time of assessment. Significant past medical history includes dyslipidemia, type 2 diabetes mellitus, hypothyroidism, and obesity. The patient admits to medication noncompliance stating that she recently ran out of her thyroid medication and has been unable to refill it. Past Medical History Past medical history reviewed. No other significant than mentioned above. Past Surgical History Ovarian cyst removal Family History: Diabetes mellitus G8 MOTHER FH: cancer G8 FATHER (NO HISTORY OF FATHER) Hypertension G8 MOTHER Family History Family history reviewed. Social History Denies the use of tobacco, alcohol or illicit drugs. Allergies: Coded Allergies: NO KNOWN ALLERGIES (Unverified , 04/28/15) Home Meds Active Scripts Cholecalciferol (VITAMIN D3) 5,000 Unit Tab, 5000 UNIT PO DAILY for 30 Days, #30 TAB Prov:SOTO WERNER MD 12/06/21 Insulin Glargine (Lantus) 100 Unit/Ml Inj, 12 UNIT SC HS for 30 Days, #30 INJ Prov:SOTO WERNER MD 12/06/21 Levothyroxine Sodium (Levothyroxine Sodium) 200 Mcg Tab, 200 MCG PO QAM for 30 Days, #30 MCG Prov:SOTO WERNER MD 12/06/21 Reported Medications Atorvastatin Calcium (ATORVASTATIN CALCIUM) 40 Mg Tab, 1 TAB PO DAILY, #30 TAB 5 Refills 01/21/25 Metformin Hydrochloride (Metformin Hcl) 500 Mg Tab, 1000 MG PO BID for 30 Days, MG 11/22/21 Discontinued Scripts Cephalexin Monohydrate (Cephalexin) 500 Mg Cap, 1 CAP PO TID for 7 Days, #21 CAP Prov:NAGI ONTIVEROS MD 08/05/23 Home Meds Home medications reviewed. Review of Systems Constitutional: No symptom reported Ears, Nose, & Throat: No symptom reported Eyes: Angioedema Neurological: No symptoms reported Pulmonary/Respiratory: No symptoms reported Cardiovascular: Palpitations Gastrointestinal: No symptom reported Genitourinary: No symptom reported Musculoskeletal: No symptom reported Skin: No symptom reported Psychiatric: No symptom reported Endocrine: No symptom reported Hematologic/Lymphatic: No symptom reported Vital Signs Vital Signs Date Time Temp Pulse Resp B/P (MAP) Pulse Ox O2 Delivery O2 Flow Rate FiO2 01/23/25 12:52 97.8 65 18 103/42 (62) 99 97.8 01/23/25 08:00 Room Air* 0 21 Physical Exam General Appearance: Cooperative. Obese Pulmonary/Respiratory: Clear, bilateral breaths sounds. Cardiovascular/Chest: Regular rate and rhythm. Peripheral Pulses: 2+ Radial (R). 2+ Radial (L). 2+ Pedal (R). 2+ Pedal (L) Abdominal Exam: Normal bowel sounds. Ankle Exam: Negative ankle edema Lower extremities: Negative lower extremity edema Neuro/Mental Status: A/OX4, coherent. Thoughts/Psych: Normal thought pattern. Appropriate mood and affect. Good judgment and insight. Appearance: No acute distress. Skin Exam: Facial swelling Labs/Diagnostic Data Labs Test 01/23/25 13:22 01/23/25 11:15 01/22/25 05:19 01/21/25 12:37 Range/Units Hemoglobin A1c 7.4 H <5.7 % A1C Magnesium Level 2.0 1.6-2.6 mg/dL Triglycerides Level 1162 H < 150 mg/dL Cholesterol Level 332 H < 200 mg/dL LDL Cholesterol < 100 mg/dL HDL Cholesterol 35 L 40-59 mg/dL Thyroid Stimulating Hormone (TSH) > 150.00 H 0.55-4.78 uIU/mL POC Glucose 132 H 70-106 mg/dl White Blood Count 5.4 4.4-10.8 10^3/uL Red Blood Count 3.65 L 4.0-5.20 10^6/uL Hemoglobin 11.1 L 12.2-16.2 g/dL Hematocrit 33.3 L 36.0-46.0 % Mean Corpuscular Volume 91.3 80.0-100.0 fL Mean Corpuscular Hemoglobin 30.5 28.0-32.0 pg Mean Corpuscular Hemoglobin Concent 33.4 32.0-36.0 g/dL Red Cell Distribution Width 14.8 H 11.8-14.3 % Platelet Count 91 L 140-450 10^3/uL Mean Platelet Volume 10.3 6.9-10.8 fL Neutrophils (%) (Auto) 68.2 37.0-80.0 % Lymphocytes (%) (Auto) 26.0 10.0-50.0 % Monocytes (%) (Auto) 3.9 0.0-12.0 % Eosinophils (%) (Auto) 1.2 0.0-7.0 % Basophils (%) (Auto) 0.7 0.0-2.0 % Neutrophils # (Auto) 3.7 1.6-8.6 10 ^3/uL Lymphocytes # (Auto) 1.4 0.4-5.4 10 ^3/uL Monocytes # (Auto) 0.2 0-1.3 10 ^3/uL Eosinophils # (Auto) 0.1 0-0.8 10 ^3/uL Basophils # (Auto) 0 0-0.2 10 ^3/uL Nucleated Red Blood Cells 0.1 % Sodium Level 139 136-145 mmol/L Potassium Level 3.7 3.5-5.1 mmol/L Chloride Level 102 98-107 mmol/L Carbon Dioxide Level 24 20-31 mmol/L Anion Gap 13 5-15 Blood Urea Nitrogen 14 9-23 mg/dL Creatinine 1.17 H 0.550-1.02 mg/dL Glomerular Filtration Rate Calc 55 >90 mL/min BUN/Creatinine Ratio 12.0 10.0-20.0 Serum Glucose 114 H 74-106 mg/dL Calcium Level 9.2 8.7-10.4 mg/dL Total Bilirubin 1.6 H 0.2-1.0 mg/dL Aspartate Amino Transferase (AST) 23 13-40 U/L Alanine Aminotransferase (ALT) 13 7-40 U/L Alkaline Phosphatase 89 46-116 U/L Total Protein 6.8 5.7-8.2 g/dL Albumin 4.2 3.2-4.8 g/dL Troponin I High Sensitivity 4 </=34 ng/L Test 01/21/25 11:49 Range/Units Urine Color Light-yellow Yellow Urine Clarity Turbid H Clear Urine pH 6.5 5.0-9.0 Urine Specific [place] 1.018 1.001-1.035 Urine Protein Negative Negative Urine Ketones Negative Negative Urine Blood Negative Negative /uL Urine Nitrite Negative Negative Urine Bilirubin Negative Negative Urine Urobilinogen 2 H Negative mg/dL Urine Leukocyte Esterase 3+ Negative /uL Urine RBC 5 0 - 4 /hpf Urine Microscopic WBC 84 H 0-5 /HPF Urine Squamous Epithelial Cells Mod <5 /hpf Urine Bacteria Few H None Seen /hpf Urine Mucus Few None Seen Urine Glucose Normal Normal mg/dL Assessment Palpitations, rule out cardiac arrhythmia Rule out structural heart disease Severe hypothyroidism Uncontrolled dyslipidemia Type 2 diabetes mellitus Obesity Medication noncompliance Plan/Recommendation We will continue with the following plan/recommendations (Dr. Pa): Case discussed with . We will proceed with obtaining a transthoracic echocardiogram to evaluate cardiac function. Patient symptoms likely in the setting of severe hypothyroidism. TSH ordered and lab value is >150. Pending T3 and T4 levels. Thyroid management per primary care team. Initiate high-dose lipid-lowering agent. Continue with close cardiac surveillance Thank you for allowing us to care for this patient. Please call with any questions or concerns. Critical care time spent: 44 minutes This medical document was created using an electronic medical record system with voice recognition software and computerized dictation system. Although this document has been carefully reviewed, there might still be some phonetic and typographical errors. Occasional wrong-word or ``sound-alike substitutions may have occurred due to the inherent limitations of voice recognition software. These areas are purely typographical due to imperfections of the software programs and do not reflect any compromise in the patient's medical care. Please read the chart carefully and recognize, using context, where these substitutions have occurred. Plan discussed with: Patient NYHA Physical activity limitations: NA Date of Service: Jan 23, 2025 Billing Provider: FARHANA GOMES Cardiology Common Codes: [id number] INP/OBS CARE (High) Cardiology Consultation Codes: [id number] CONSULT <45MIN FARHANA GOMES Jan 23, 2025 15:23
[2025-01-23] MEDS: EZETIMIBE 10 MG TAB PO ONE (15:34)
[2025-01-23] MEDS: ATORVASTATIN 20 MG TAB PO SCH (21:56)
[2025-01-24] VITALS (7 sets, daily range): BP systolic 87–112; BP diastolic 46–67; PULSE 60–79; RESP 17–19; TEMP 97.6–98.1; O2SAT 94–100
[2025-01-24] MEDS: EZETIMIBE 10 MG TAB PO SCH (09:43)
[2025-01-24] MEDS: LEVOTHYROXINE SODIUM 100 MCG/5 ML INJ IV SCH (15:10)
--- NOTE | 2025-01-24 15:17 | DVHPN2 ---
Consult Progress Note Subjective Other Systems: Patient was in normal sinus rhythm on monitoring analyst at time of assessment Objective vital signs Vital Sign Date Time Temp Pulse Resp B/P (MAP) Pulse Ox O2 Delivery O2 Flow Rate FiO2 01/24/25 09:00 98.1 61 17 87/46 (60) 96 98.1 01/24/25 08:00 Room Air* 0 21 Total Intake and Output 01/23/25 01/23/25 01/24/25 15:00 23:00 07:00 Intake Total 50 ml 240 ml 600 ml Balance 50 ml 240 ml 600 ml medications Current Medications Medications Dose Ordered Sig/Marisol Route Start Time Stop Time Status Last Admin Dose Admin Acetaminophen/ Hydrocodone Bitart 1 tab Q4HP PRN PO 01/21/25 13:00 Ondansetron HCl 4 mg Q4HP PRN IV 01/21/25 13:00 Docusate Sodium 100 mg BIDPRN PRN PO 01/21/25 13:00 Acetaminophen 650 mg Q6HP PRN PO 01/21/25 13:00 Nitroglycerin 0.4 mg Q5MINP PRN SL 01/21/25 13:00 Morphine Sulfate 2 mg Q30M PRN IV 01/21/25 13:00 Insulin Glargine 12 units HS SC 01/21/25 22:00 01/23/25 21:54 12 UNITS Levothyroxine Sodium 200 mcg QAM PO 01/22/25 07:00 01/24/25 06:01 200 MCG Ceftriaxone Sodium 50 ml @ 100 mls/hr DAILY@09 IV 01/22/25 09:00 01/24/25 09:43 100 MLS/HR Diagnostic Test (Pha) 1 strip ACHS 01/21/25 17:00 01/24/25 11:30 1 STRIP Insulin Human Regular HS SC 01/21/25 22:00 01/23/25 21:54 2 UNITS Insulin Human Regular AC SC 01/21/25 17:00 01/22/25 12:29 2 UNITS Dextrose 50 ml UD PRN IV 01/21/25 13:15 Atorvastatin Calcium 80 mg HS PO 01/23/25 22:00 01/23/25 21:56 80 MG EZETIMIBE 10 mg DAILY PO 01/24/25 10:00 01/24/25 09:43 10 MG Levothyroxine Sodium 50 mcg DAILY IV 01/24/25 13:30 Examination: GENERAL:Abnormal (Generalized weakness), LUNGS:Normal, CVS:Normal, NEURO:Normal laboratory and microbiology Laboratory Tests 01/22/25 05:19 Test 01/22/25 05:19 Range/Units Serum Glucose 114 H 74-106 mg/dL Problem List/Assessment/Plan Problem List/Assessment/Plan Palpitations, rule out cardiac arrhythmia Rule out structural heart disease Severe hypothyroidism Uncontrolled dyslipidemia with severe hypertriglyceridemia Type 2 diabetes mellitus Obesity Medication noncompliance Plan/Recommendation (Dr. Pa): Case discussed with . We will proceed with obtaining a transthoracic echocardiogram to evaluate cardiac function. Patient symptoms likely in the setting of severe hypothyroidism. TSH ordered and lab value is >150. Free T4 level of 0.42ng/dL. Thyroid management per primary care team. Continue high- dose lipid-lowering agent. Given extremely elevated triglyceride level, the patient he is at an increased risk for cardiac events and pancreatitis. Monitor for symptoms. Continue with close cardiac surveillance. In the setting of an unremarkable transthoracic echocardiogram, there is no further inpatient cardiac workup indicated. Consider outpatient event monitor if deemed necessary. Consider endocrinology consultation. Thank you for allowing us to care for this patient. Please call with any questions or concerns. This medical document was created using an electronic medical record system with voice recognition software and computerized dictation system. Although this document has been carefully reviewed, there might still be some phonetic and typographical errors. Occasional wrong-word or ``sound-alike substitutions may have occurred due to the inherent limitations of voice recognition software. These areas are purely typographical due to imperfections of the software programs and do not reflect any compromise in the patient's medical care. Please read the chart carefully and recognize, using context, where these substitutions have occurred. Plan discussed with: Patient Date of Service: Jan 24, 2025 Billing Provider: FARAHNA GOMES Common Visit Codes: [id number] INP/OBS CARE(HIGH) FARHANA GOMES Jan 24, 2025 15:17
[2025-01-25] VITALS (9 sets, daily range): BP systolic 80–117; BP diastolic 49–63; PULSE 58–91; RESP 17–19; TEMP 97.6–98.3; O2SAT 92–98
--- NOTE | 2025-01-25 11:25 | DVHPN2 ---
Reviewed: Care Plan Changes from previous H/P or p: No Changes Eyes: No Pain, No Vision change, No Conjunctivae inflammation, No Eyelid inflammation, No Other, No Redness ENT: Ear pain; No Ear discharge, No Nose pain, No Nose discharge, No Nose congestion, No Mouth pain, No Mouth swelling, No Throat pain, No Throat swelling, No Other Cardiovascular: No Chest Pain; Palpitations; No Orthopnea, No Paroxysmal Noc. Dyspnea, No Edema, No Lt Headedness, No Other Respiratory: No Cough, No Dry, No Shortness of breath, No SOB with excertion, No Wheezing, No Hemoptysis, No Pleuritic Pain, No Sputum, No Other Gastrointestinal: No Nausea, No Vomiting, No Abdominal Pain, No Diarrhea, No Constipation, No Melena, No Hematochezia, No Other Genitourinary: No Dysuria, No Frequency, No Incontinence, No Hematuria, No Retention, No Other Musculoskeletal: No other, No neck pain, No shoulder pain, No arm pain, No back pain, No hand pain, No leg pain, No foot pain Skin: No Rash, No Lesions, No Jaundice, No Bruising, No Other Objective Vitals Vital Signs Date Time Temp Pulse Resp B/P (MAP) Pulse Ox O2 Delivery O2 Flow Rate FiO2 01/25/25 09:00 98.3 91 18 81/49 (60) 92 98.3 01/24/25 20:00 Room Air* 0 21 Intake/Output Intake and Output 01/25/25 07:00 Intake Total 1425 ml Balance 1425 ml Intake Oral 1425 ml # Voids 8 # Bowel Movements 2 General Appearance: Alert, Oriented X3, Cooperative HEENT: Atraumatic Neck: Carotid [place]its [place] Cardiovascular: Regular rate, Normal S1, Normal S2 Medications Current Medications Medications Dose Ordered Sig/Marisol Route Start Time Stop Time Status Last Admin Dose Admin Acetaminophen/ Hydrocodone Bitart 1 tab Q4HP PRN PO 01/21/25 13:00 Ondansetron HCl 4 mg Q4HP PRN IV 01/21/25 13:00 Docusate Sodium 100 mg BIDPRN PRN PO 01/21/25 13:00 Acetaminophen 650 mg Q6HP PRN PO 01/21/25 13:00 Nitroglycerin 0.4 mg Q5MINP PRN SL 01/21/25 13:00 Morphine Sulfate 2 mg Q30M PRN IV 01/21/25 13:00 Insulin Glargine 12 units HS SC 01/21/25 22:00 01/23/25 21:54 12 UNITS Levothyroxine Sodium 200 mcg QAM PO 01/22/25 07:00 01/25/25 06:12 200 MCG Ceftriaxone Sodium 50 ml @ 100 mls/hr DAILY@09 IV 01/22/25 09:00 01/25/25 09:58 100 MLS/HR Diagnostic Test (Pha) 1 strip ACHS 01/21/25 17:00 01/25/25 06:12 1 STRIP Insulin Human Regular HS SC 01/21/25 22:00 01/23/25 21:54 2 UNITS Insulin Human Regular AC SC 01/21/25 17:00 01/22/25 12:29 2 UNITS Dextrose 50 ml UD PRN IV 01/21/25 13:15 Atorvastatin Calcium 80 mg HS PO 01/23/25 22:00 01/24/25 22:36 80 MG EZETIMIBE 10 mg DAILY PO 01/24/25 10:00 01/25/25 09:58 10 MG Levothyroxine Sodium 50 mcg DAILY IV 01/24/25 13:30 01/25/25 09:58 50 MCG Laboratory Results Laboratory Tests 01/22/25 05:19 Urinalysis Test 01/21/25 11:49 Urine Color Light-yellow (Yellow) Urine Clarity Turbid (Clear) H Urine pH 6.5 (5.0-9.0) Urine Specific [place] 1.018 (1.001-1.035) Urine Protein Negative (Negative) Urine Ketones Negative (Negative) Urine Blood Negative /uL (Negative) Urine Nitrite Negative (Negative) Urine Bilirubin Negative (Negative) Urine Urobilinogen 2 mg/dL (Negative) H Urine Leukocyte Esterase 3+ /uL (Negative) Urine RBC 5 /hpf (0 - 4) Urine Microscopic WBC 84 /HPF (0-5) H Urine Squamous Epithelial Cells Mod /hpf (<5) Urine Bacteria Few /hpf (None Seen) H Urine Mucus Few (None Seen) Urine Glucose Normal mg/dL (Normal) Labs and/or images reviewed: Labs reviewed by me, Image(s) reviewed by me Assessment/Plan Assessment/Plan Facial numbness and swelling, Palpitations, Junctional EKG rhythm, Diabetes, Hypothyroidism, 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 needs to be on iv infusion for 2-3 days Plan discussed with: Patient My Orders Orders - BALBIR REAVES DO Procedure Category Date Status Time Levothyroxine PHA 01/24/25 In Process Injection (Synthroid 13:30 Date of Service: Jan 25, 2025 Billing Provider: BALBIR REAVES DO Common Visit Codes: [id number] INP/OBS CARE(HIGH) BALBIR REAVES DO Jan 25, 2025 11:25
[2025-01-26] VITALS (8 sets, daily range): BP systolic 91–109; BP diastolic 50–59; PULSE 59–76; RESP 15–16; TEMP 97.9–98.5; O2SAT 91–97
--- NOTE | 2025-01-26 12:04 | DVHPN2 ---
Reviewed: Care Plan, H&P, Labs, Medications, Previous Orders Changes from previous H/P or p: No Changes General: Per HPI Eyes: No Pain, No Vision change, No Conjunctivae inflammation, No Eyelid inflammation, No Other, No Redness ENT: Ear pain; No Ear discharge, No Nose pain, No Nose discharge, No Nose congestion, No Mouth pain, No Mouth swelling, No Throat pain, No Throat swelling, No Other Cardiovascular: No Chest Pain; Palpitations; No Orthopnea, No Paroxysmal Noc. Dyspnea, No Edema, No Lt Headedness, No Other Respiratory: No Cough, No Dry, No Shortness of breath, No SOB with excertion, No Wheezing, No Hemoptysis, No Pleuritic Pain, No Sputum, No Other Gastrointestinal: No Nausea, No Vomiting, No Abdominal Pain, No Diarrhea, No Constipation, No Melena, No Hematochezia, No Other Genitourinary: No Dysuria, No Frequency, No Incontinence, No Hematuria, No Retention, No Other Musculoskeletal: No other, No neck pain, No shoulder pain, No arm pain, No back pain, No hand pain, No leg pain, No foot pain Skin: No Rash, No Lesions, No Jaundice, No Bruising, No Other Objective Vitals Vital Signs Date Time Temp Pulse Resp B/P (MAP) Pulse Ox O2 Delivery O2 Flow Rate FiO2 01/26/25 09:00 98.2 68 15 91/54 (66) 95 98.2 01/26/25 08:00 Room Air* 0 21 Intake/Output Intake and Output 01/26/25 07:00 Intake Total 1090 ml Balance 1090 ml Intake Oral 1040 ml IV Total 50 ml # Voids 9 # Bowel Movements 2 Medications Current Medications Medications Dose Ordered Sig/Marisol Route Start Time Stop Time Status Last Admin Dose Admin Acetaminophen/ Hydrocodone Bitart 1 tab Q4HP PRN PO 01/21/25 13:00 Ondansetron HCl 4 mg Q4HP PRN IV 01/21/25 13:00 Docusate Sodium 100 mg BIDPRN PRN PO 01/21/25 13:00 Acetaminophen 650 mg Q6HP PRN PO 01/21/25 13:00 Nitroglycerin 0.4 mg Q5MINP PRN SL 01/21/25 13:00 Morphine Sulfate 2 mg Q30M PRN IV 01/21/25 13:00 Insulin Glargine 12 units HS SC 01/21/25 22:00 01/25/25 22:58 12 UNITS Levothyroxine Sodium 200 mcg QAM PO 01/22/25 07:00 01/26/25 06:31 200 MCG Ceftriaxone Sodium 50 ml @ 100 mls/hr DAILY@09 IV 01/22/25 09:00 01/26/25 09:18 100 MLS/HR Diagnostic Test (Pha) 1 strip ACHS 01/21/25 17:00 01/26/25 06:32 1 STRIP Insulin Human Regular HS SC 01/21/25 22:00 01/25/25 22:59 3 UNITS Insulin Human Regular AC SC 01/21/25 17:00 01/25/25 17:32 2 UNITS Dextrose 50 ml UD PRN IV 01/21/25 13:15 Atorvastatin Calcium 80 mg HS PO 01/23/25 22:00 01/25/25 22:57 80 MG EZETIMIBE 10 mg DAILY PO 01/24/25 10:00 01/26/25 09:18 10 MG Levothyroxine Sodium 50 mcg DAILY IV 01/24/25 13:30 01/26/25 09:18 50 MCG Laboratory Results Laboratory Tests 01/22/25 05:19 Urinalysis Test 01/21/25 11:49 Urine Color Light-yellow (Yellow) Urine Clarity Turbid (Clear) H Urine pH 6.5 (5.0-9.0) Urine Specific [place] 1.018 (1.001-1.035) Urine Protein Negative (Negative) Urine Ketones Negative (Negative) Urine Blood Negative /uL (Negative) Urine Nitrite Negative (Negative) Urine Bilirubin Negative (Negative) Urine Urobilinogen 2 mg/dL (Negative) H Urine Leukocyte Esterase 3+ /uL (Negative) Urine RBC 5 /hpf (0 - 4) Urine Microscopic WBC 84 /HPF (0-5) H Urine Squamous Epithelial Cells Mod /hpf (<5) Urine Bacteria Few /hpf (None Seen) H Urine Mucus Few (None Seen) Urine Glucose Normal mg/dL (Normal) Assessment/Plan Assessment/Plan Facial numbness and swelling, Palpitations, Junctional EKG rhythm, Diabetes, Hypothyroidism, 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
--- NOTE | 2025-01-26 12:08 | DVHPN2 ---
Reviewed: Care Plan, H&P, Labs, Medications, Previous Orders Changes from previous H/P or p: No Changes General: Per HPI Eyes: No Pain, No Vision change, No Conjunctivae inflammation, No Eyelid inflammation, No Other, No Redness ENT: Ear pain; No Ear discharge, No Nose pain, No Nose discharge, No Nose congestion, No Mouth pain, No Mouth swelling, No Throat pain, No Throat swelling, No Other Cardiovascular: No Chest Pain; Palpitations; No Orthopnea, No Paroxysmal Noc. Dyspnea, No Edema, No Lt Headedness, No Other Respiratory: No Cough, No Dry, No Shortness of breath, No SOB with excertion, No Wheezing, No Hemoptysis, No Pleuritic Pain, No Sputum, No Other Gastrointestinal: No Nausea, No Vomiting, No Abdominal Pain, No Diarrhea, No Constipation, No Melena, No Hematochezia, No Other Genitourinary: No Dysuria, No Frequency, No Incontinence, No Hematuria, No Retention, No Other Musculoskeletal: No other, No neck pain, No shoulder pain, No arm pain, No back pain, No hand pain, No leg pain, No foot pain Skin: No Rash, No Lesions, No Jaundice, No Bruising, No Other Objective Vitals Vital Signs Date Time Temp Pulse Resp B/P (MAP) Pulse Ox O2 Delivery O2 Flow Rate FiO2 01/26/25 09:00 98.2 68 15 91/54 (66) 95 98.2 01/26/25 08:00 Room Air* 0 21 Intake/Output Intake and Output 01/26/25 07:00 Intake Total 1090 ml Balance 1090 ml Intake Oral 1040 ml IV Total 50 ml # Voids 9 # Bowel Movements 2 General Appearance: Alert, Oriented X3, Cooperative HEENT: Atraumatic Neck: Carotid [place] Cardiovascular: Regular rate, Normal S1, Normal S2 Medications Current Medications Medications Dose Ordered Sig/Marisol Route Start Time Stop Time Status Last Admin Dose Admin Acetaminophen/ Hydrocodone Bitart 1 tab Q4HP PRN PO 01/21/25 13:00 Ondansetron HCl 4 mg Q4HP PRN IV 01/21/25 13:00 Docusate Sodium 100 mg BIDPRN PRN PO 01/21/25 13:00 Acetaminophen 650 mg Q6HP PRN PO 01/21/25 13:00 Nitroglycerin 0.4 mg Q5MINP PRN SL 01/21/25 13:00 Morphine Sulfate 2 mg Q30M PRN IV 01/21/25 13:00 Insulin Glargine 12 units HS SC 01/21/25 22:00 01/25/25 22:58 12 UNITS Levothyroxine Sodium 200 mcg QAM PO 01/22/25 07:00 01/26/25 06:31 200 MCG Ceftriaxone Sodium 50 ml @ 100 mls/hr DAILY@09 IV 01/22/25 09:00 01/26/25 09:18 100 MLS/HR Diagnostic Test (Pha) 1 strip ACHS 01/21/25 17:00 01/26/25 06:32 1 STRIP Insulin Human Regular HS SC 01/21/25 22:00 01/25/25 22:59 3 UNITS Insulin Human Regular AC SC 01/21/25 17:00 01/25/25 17:32 2 UNITS Dextrose 50 ml UD PRN IV 01/21/25 13:15 Atorvastatin Calcium 80 mg HS PO 01/23/25 22:00 01/25/25 22:57 80 MG EZETIMIBE 10 mg DAILY PO 01/24/25 10:00 01/26/25 09:18 10 MG Levothyroxine Sodium 50 mcg DAILY IV 01/24/25 13:30 01/26/25 09:18 50 MCG Laboratory Results Laboratory Tests 01/22/25 05:19 Urinalysis Test 01/21/25 11:49 Urine Color Light-yellow (Yellow) Urine Clarity Turbid (Clear) H Urine pH 6.5 (5.0-9.0) Urine Specific [place] 1.018 (1.001-1.035) Urine Protein Negative (Negative) Urine Ketones Negative (Negative) Urine Blood Negative /uL (Negative) Urine Nitrite Negative (Negative) Urine Bilirubin Negative (Negative) Urine Urobilinogen 2 mg/dL (Negative) H Urine Leukocyte Esterase 3+ /uL (Negative) Urine RBC 5 /hpf (0 - 4) Urine Microscopic WBC 84 /HPF (0-5) H Urine Squamous Epithelial Cells Mod /hpf (<5) Urine Bacteria Few /hpf (None Seen) H Urine Mucus Few (None Seen) Urine Glucose Normal mg/dL (Normal) Assessment/Plan Assessment/Plan Facial numbness and swelling, Palpitations, Junctional EKG rhythm, Diabetes, Hypothyroidism, 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 needs to be on iv infusion for 2-3 days possible d/c withn 24-48 hours if symptoms improve further Plan discussed with: Patient Date of Service: Jan 26, 2025 Billing Provider: BALBIR REAVES DO Common Visit Codes: [id number] INP/OBS CARE(HIGH) BALBIR REAVES DO Jan 26, 2025 12:08
[2025-01-27] VITALS (9 sets, daily range): BP systolic 90–126; BP diastolic 54–65; PULSE 59–84; RESP 15–18; TEMP 97.6–98.4; O2SAT 93–95
[2025-01-27] MEDS: HYDROcodone-ACET 5/325MG TAB PO PRN (01:05)
--- NOTE | 2025-01-27 12:01 | DVHPN2 ---
Reviewed: Care Plan, H&P, Labs, Medications, Previous Orders Changes from previous H/P or p: No Changes General: Per HPI Eyes: No Pain, No Vision change, No Conjunctivae inflammation, No Eyelid inflammation, No Other, No Redness ENT: Ear pain; No Ear discharge, No Nose pain, No Nose discharge, No Nose congestion, No Mouth pain, No Mouth swelling, No Throat pain, No Throat swelling, No Other Cardiovascular: No Chest Pain; Palpitations; No Orthopnea, No Paroxysmal Noc. Dyspnea, No Edema, No Lt Headedness, No Other Respiratory: No Cough, No Dry, No Shortness of breath, No SOB with excertion, No Wheezing, No Hemoptysis, No Pleuritic Pain, No Sputum, No Other Gastrointestinal: No Nausea, No Vomiting, No Abdominal Pain, No Diarrhea, No Constipation, No Melena, No Hematochezia, No Other Genitourinary: No Dysuria, No Frequency, No Incontinence, No Hematuria, No Retention, No Other Musculoskeletal: No other, No neck pain, No shoulder pain, No arm pain, No back pain, No hand pain, No leg pain, No foot pain Skin: No Rash, No Lesions, No Jaundice, No Bruising, No Other Objective Vitals Vital Signs Date Time Temp Pulse Resp B/P (MAP) Pulse Ox O2 Delivery O2 Flow Rate FiO2 01/27/25 09:00 98.4 69 18 92/57 (69) 95 98.4 01/27/25 08:00 Room Air* 0 21 Intake/Output Intake and Output 01/27/25 07:00 Intake Total 1750 ml Balance 1750 ml Intake Oral 1700 ml IV Total 50 ml # Voids 8 # Bowel Movements 1 General Appearance: Alert, Oriented X3, Cooperative HEENT: Atraumatic Neck: Carotid [place] Cardiovascular: Regular rate, Normal S1, Normal S2 Medications Current Medications Medications Dose Ordered Sig/Marisol Route Start Time Stop Time Status Last Admin Dose Admin Acetaminophen/ Hydrocodone Bitart 1 tab Q4HP PRN PO 01/21/25 13:00 01/27/25 01:05 1 TAB Ondansetron HCl 4 mg Q4HP PRN IV 01/21/25 13:00 Docusate Sodium 100 mg BIDPRN PRN PO 01/21/25 13:00 Acetaminophen 650 mg Q6HP PRN PO 01/21/25 13:00 Nitroglycerin 0.4 mg Q5MINP PRN SL 01/21/25 13:00 Morphine Sulfate 2 mg Q30M PRN IV 01/21/25 13:00 Insulin Glargine 12 units HS SC 01/21/25 22:00 01/26/25 21:35 12 UNITS Ceftriaxone Sodium 50 ml @ 100 mls/hr DAILY@09 IV 01/22/25 09:00 01/27/25 09:38 100 MLS/HR Diagnostic Test (Pha) 1 strip ACHS 01/21/25 17:00 01/27/25 06:16 1 STRIP Insulin Human Regular HS SC 01/21/25 22:00 01/26/25 21:36 2 UNITS Insulin Human Regular AC SC 01/21/25 17:00 01/26/25 12:27 2 UNITS Dextrose 50 ml UD PRN IV 01/21/25 13:15 Atorvastatin Calcium 80 mg HS PO 01/23/25 22:00 01/26/25 21:33 80 MG EZETIMIBE 10 mg DAILY PO 01/24/25 10:00 01/27/25 09:39 10 MG Levothyroxine Sodium 150 mcg DAILY IV 01/28/25 10:00 UNV Laboratory Results Laboratory Tests 01/22/25 05:19 HgA1c, TSH Test 01/26/25 13:25 Thyroid Stimulating Hormone (TSH) > 150.00 uIU/mL Urinalysis Test 01/21/25 11:49 Urine Color Light-yellow (Yellow) Urine Clarity Turbid (Clear) H Urine pH 6.5 (5.0-9.0) Urine Specific [place] 1.018 (1.001-1.035) Urine Protein Negative (Negative) Urine Ketones Negative (Negative) Urine Blood Negative /uL (Negative) Urine Nitrite Negative (Negative) Urine Bilirubin Negative (Negative) Urine Urobilinogen 2 mg/dL (Negative) H Urine Leukocyte Esterase 3+ /uL (Negative) Urine RBC 5 /hpf (0 - 4) Urine Microscopic WBC 84 /HPF (0-5) H Urine Squamous Epithelial Cells Mod /hpf (<5) Urine Bacteria Few /hpf (None Seen) H Urine Mucus Few (None Seen) Urine Glucose Normal mg/dL (Normal) Assessment/Plan Assessment/Plan Facial numbness and swelling, Palpitations, Junctional EKG rhythm, Diabetes, Hypothyroidism, 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 needs to be on iv infusion for 2-3 days. DC p.o. Synthroid.. possible d/c withn 24-48 hours if symptoms improve further This medical document was created using an electronic medical record system with [employer] direct computerized dictation system. Although this document has been carefully reviewed, there may still be some phonetic and typographical errors. These areas are purely typographical due to imperfections of the software programs, and do not reflect any compromise in the patient's medical care. Plan discussed with: Patient My Orders Orders - VANESSA SHEN MD Procedure Category Date Status Time Levothyroxine PHA 01/28/25 Logged Injection (Synthroid 10:00 Complete Blood Count LAB 01/27/25 Logged 10:44 Comprehensive LAB 01/27/25 Logged Metabolic Panel 10:44 T3 Total LAB 01/27/25 Logged 10:44 Date of Service: Jan 27, 2025 Billing Provider: VANESSA SHEN MD Common Visit Codes: [id number] INP/OBS CARE(HIGH) VANESSA SHEN MD Jan 27, 2025 12:01
[2025-01-27 13:42] LABS: Basophils # (auto) 0 10 ^3/uL (0-0.2); Basophils % (auto) 0.7 % (0.0-2.0); Eosinophils # (auto) 0.1 10 ^3/uL (0-0.8); Eosinophils % (auto) 1.1 % (0.0-7.0); Hematocrit 30.8 % (36.0-46.0); Hemoglobin 10.8 g/dL (12.2-16.2); Lymphocytes # (auto) 1.5 10 ^3/uL (0.4-5.4); Lymphocytes % (auto) 25.4 % (10.0-50.0); Mean Corpuscular Hemoglobin 31.1 pg (28.0-32.0); Mean Corpuscular Hgb Conc. 34.9 g/dL (32.0-36.0); Mean Corpuscular Volume 89.1 fL (80.0-100.0); Monocytes # (auto) 0.3 10 ^3/uL (0-1.3); Monocytes % (auto) 5.3 % (0.0-12.0); Neutrophils # (auto) 4.1 10 ^3/uL (1.6-8.6); Neutrophils % (auto) 67.5 % (37.0-80.0); Platelet Count (auto) 109 10^3/uL (140-450); Red Blood Cells 3.46 10^6/uL (4.0-5.20); Red Cell Distribution Width 14.8 % (11.8-14.3)
[2025-01-27 13:55] LABS: Alanine Aminotransferase 15 U/L (7-40); Albumin 4.5 g/dL (3.2-4.8); Alkaline Phosphatase 105 U/L (46-116); Anion Gap 9 (5-15); Aspartate Aminotransferase 26 U/L (13-40); BUN/Creatinine Ratio 18.5 (10.0-20.0); Blood Urea Nitrogen 20 mg/dL (9-23); Calcium 9.9 mg/dL (8.7-10.4); Carbon Dioxide 28 mmol/L (20-31); Chloride 100 mmol/L (98-107); Potassium 3.7 mmol/L (3.5-5.1); Sodium 137 mmol/L (136-145); Total Protein 7.3 g/dL (5.7-8.2)
[2025-01-27 13:57] LABS: Bilirubin, Total 2.4 mg/dL (0.2-1.0); Glucose 119 mg/dL (74-106)
[2025-01-28 01:00] VITALS: BP 97/60; PULSE 58; RESP 17; TEMP 97.9; O2SAT 97
[2025-01-28 05:00] VITALS: BP 96/52; PULSE 60; RESP 15; TEMP 97.7; O2SAT 92
[2025-01-28 08:00] VITALS: PULSE 60; PULSE 74; RESP 15; O2SAT 98
[2025-01-28] MEDS: LEVOTHYROXINE SODIUM 100 MCG/5 ML INJ IV SCH (08:36)
[2025-01-28 08:47] VITALS: BP 95/57; PULSE 60; RESP 18; TEMP 98.1; O2SAT 96
--- NOTE | 2025-01-28 12:01 | DVHPN2 ---
Reviewed: Care Plan, H&P, Labs, Medications, Previous Orders General: Per HPI Eyes: No Pain, No Vision change, No Conjunctivae inflammation, No Eyelid inflammation, No Other, No Redness ENT: Ear pain; No Ear discharge, No Nose pain, No Nose discharge, No Nose congestion, No Mouth pain, No Mouth swelling, No Throat pain, No Throat swelling, No Other Cardiovascular: No Chest Pain; Palpitations; No Orthopnea, No Paroxysmal Noc. Dyspnea, No Edema, No Lt Headedness, No Other Respiratory: No Cough, No Dry, No Shortness of breath, No SOB with excertion, No Wheezing, No Hemoptysis, No Pleuritic Pain, No Sputum, No Other Gastrointestinal: No Nausea, No Vomiting, No Abdominal Pain, No Diarrhea, No Constipation, No Melena, No Hematochezia, No Other Genitourinary: No Dysuria, No Frequency, No Incontinence, No Hematuria, No Retention, No Other Musculoskeletal: No other, No neck pain, No shoulder pain, No arm pain, No back pain, No hand pain, No leg pain, No foot pain Skin: No Rash, No Lesions, No Jaundice, No Bruising, No Other Objective Vitals Vital Signs Date Time Temp Pulse Resp B/P (MAP) Pulse Ox O2 Delivery O2 Flow Rate FiO2 01/28/25 08:47 98.1 60 18 95/57 (70) 96 98.1 01/28/25 08:00 Room Air* 0 21 Intake/Output Intake and Output 01/28/25 07:00 Intake Total 2300 ml Balance 2300 ml Intake Oral 2250 ml IV Total 50 ml # Voids 3 General Appearance: Alert, Oriented X3, Cooperative HEENT: Atraumatic Neck: Carotid [place] Cardiovascular: Regular rate, Normal S1, Normal S2 Medications Current Medications Medications Dose Ordered Sig/Marisol Route Start Time Stop Time Status Last Admin Dose Admin Acetaminophen/ Hydrocodone Bitart 1 tab Q4HP PRN PO 01/21/25 13:00 01/27/25 21:20 1 TAB Ondansetron HCl 4 mg Q4HP PRN IV 01/21/25 13:00 Docusate Sodium 100 mg BIDPRN PRN PO 01/21/25 13:00 Acetaminophen 650 mg Q6HP PRN PO 01/21/25 13:00 Nitroglycerin 0.4 mg Q5MINP PRN SL 01/21/25 13:00 Morphine Sulfate 2 mg Q30M PRN IV 01/21/25 13:00 Insulin Glargine 12 units HS SC 01/21/25 22:00 01/27/25 21:32 12 UNITS Ceftriaxone Sodium 50 ml @ 100 mls/hr DAILY@09 IV 01/22/25 09:00 01/28/25 08:36 100 MLS/HR Diagnostic Test (Pha) 1 strip ACHS 01/21/25 17:00 01/28/25 06:11 1 STRIP Insulin Human Regular HS SC 01/21/25 22:00 01/27/25 21:27 2 UNITS Insulin Human Regular AC SC 01/21/25 17:00 01/26/25 12:27 2 UNITS Dextrose 50 ml UD PRN IV 01/21/25 13:15 Atorvastatin Calcium 80 mg HS PO 01/23/25 22:00 01/27/25 21:20 80 MG EZETIMIBE 10 mg DAILY PO 01/24/25 10:00 01/28/25 08:36 10 MG Levothyroxine Sodium 150 mcg DAILY IV 01/28/25 10:00 01/28/25 08:36 150 MCG Laboratory Results Laboratory Tests 01/27/25 13:30 Chemistry Test 01/27/25 13:30 Albumin 4.5 g/dL (3.2-4.8) Calcium Level 9.9 mg/dL (8.7-10.4) Total Protein 7.3 g/dL (5.7-8.2) LFT Test 01/27/25 13:30 Alanine Aminotransferase (ALT) 15 U/L (7-40) Alkaline Phosphatase 105 U/L (46-116) Aspartate Amino Transferase (AST) 26 U/L (13-40) Total Bilirubin 2.4 mg/dL (0.2-1.0) H Urinalysis Test 01/21/25 11:49 Urine Color Light-yellow (Yellow) Urine Clarity Turbid (Clear) H Urine pH 6.5 (5.0-9.0) Urine Specific [place] 1.018 (1.001-1.035) Urine Protein Negative (Negative) Urine Ketones Negative (Negative) Urine Blood Negative /uL (Negative) Urine Nitrite Negative (Negative) Urine Bilirubin Negative (Negative) Urine Urobilinogen 2 mg/dL (Negative) H Urine Leukocyte Esterase 3+ /uL (Negative) Urine RBC 5 /hpf (0 - 4) Urine Microscopic WBC 84 /HPF (0-5) H Urine Squamous Epithelial Cells Mod /hpf (<5) Urine Bacteria Few /hpf (None Seen) H Urine Mucus Few (None Seen) Urine Glucose Normal mg/dL (Normal) Assessment/Plan Assessment/Plan Facial numbness and swelling, Palpitations, Junctional EKG rhythm, Diabetes, Hypothyroidism, 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 needs to be on iv infusion for 2-3 days. DC p.o. Synthroid.. possible d/c withn 24-48 hours if symptoms improve further This medical document was created using an electronic medical record system with [employer] direct computerized dictation system. Although this document has been carefully reviewed, there may still be some phonetic and typographical errors. These areas are purely typographical due to imperfections of the software programs, and do not reflect any compromise in the patient's medical care. My Orders Orders - VANESSA SHEN MD Procedure Category Date Status Time Thyroid Stimulating LAB 01/28/25 Logged Hormone 11:06 Free T4 (Free LAB 01/28/25 Logged Thyroxine) 11:06 Free T3 LAB 01/28/25 Logged 11:06 T3 Total LAB 01/28/25 Logged 11:07 VANESSA SHEN MD Jan 28, 2025 12:01
--- NOTE | 2025-01-28 12:19 | DVHSR ---
APPROVED REPORT EXAM: Two-dimensional and M-mode echocardiogram with Doppler and color Doppler. Blood Pressure: 103/42 mmHg INDICATION Evaluate Cardiac Function RISK FACTORS Obesity: Height: 5' 3", Weight: 216 DIMENSIONS LVDd4.9 (3.8-5.7cm)LA (2D)3.7 (1.9-4.0cm)Aortic Root3.3 (2.0-3.7cm) LVDs3.5 (2.5-4.0cm)LA (MM) (1.9-4.0cm)Aortic Cusp Exc1.7 (1.5-2.0cm) EF (%) 55.0 (55-70%)Rt. Atrium3.3 (1.9-4.0cm)Asc. Aorta cm IVSd1.0 (0.7-1.1cm)RV (D) (1.8-2.4cm) PWd0.9 (0.7-1.1cm) Mitral Valve MitralMitral Stenosis E wave0.70m/sMV Mean GR.mmHg A wave0.50m/sMV Peak GR.mmHg E/A ratio1.42D MVAcm2 Aortic Valve Aortic ValveAortic Stenosis V11.00m/Mani Mean GR.3mmHg V21.00m/Mani Peak GR.4mmHg LVOT Diameter2.0 (1.8-2.4cm)Doppler AVA3.14cm2 Pulmonic Valve V20.70m/s Tricuspid Valve TR Velocity2.60m/s [id number] Conclusion lvef 65% moderate LVH RV normal funciton left atrium enlarged mild mild circumferential pericardial effusion noted, no HD compromise
[2025-01-28 12:32] VITALS: BP 113/67; PULSE 65; RESP 18; TEMP 98.2; O2SAT 96
--- NOTE | 2025-01-28 15:27 | DVHDS2 ---
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 Hyperlipidemia, Labs/Diagnostic Data: Laboratory Results Test 01/28/25 15:12 01/28/25 12:15 01/27/25 13:30 01/25/25 11:36 POC Glucose 140 mg/dl (70-106) White Blood Count 6.0 10^3/uL (4.4-10.8) Red Blood Count 3.46 10^6/uL (4.0-5.20) Hemoglobin 10.8 g/dL (12.2-16.2) Hematocrit 30.8 % (36.0-46.0) Mean Corpuscular Volume 89.1 fL (80.0-100.0) Mean Corpuscular Hemoglobin 31.1 pg (28.0-32.0) Mean Corpuscular Hemoglobin Concent 34.9 g/dL (32.0-36.0) Red Cell Distribution Width 14.8 % (11.8-14.3) Platelet Count 109 10^3/uL (140-450) Mean Platelet Volume 9.8 fL (6.9-10.8) Neutrophils (%) (Auto) 67.5 % (37.0-80.0) Lymphocytes (%) (Auto) 25.4 % (10.0-50.0) Monocytes (%) (Auto) 5.3 % (0.0-12.0) Eosinophils (%) (Auto) 1.1 % (0.0-7.0) Basophils (%) (Auto) 0.7 % (0.0-2.0) Neutrophils # (Auto) 4.1 10 ^3/uL (1.6-8.6) Lymphocytes # (Auto) 1.5 10 ^3/uL (0.4-5.4) Monocytes # (Auto) 0.3 10 ^3/uL (0-1.3) Eosinophils # (Auto) 0.1 10 ^3/uL (0-0.8) Basophils # (Auto) 0 10 ^3/uL (0-0.2) Nucleated Red Blood Cells 0.0 % Sodium Level 137 mmol/L (136-145) Potassium Level 3.7 mmol/L (3.5-5.1) Chloride Level 100 mmol/L (98-107) Carbon Dioxide Level 28 mmol/L (20-31) Anion Gap 9 (5-15) Blood Urea Nitrogen 20 mg/dL (9-23) Creatinine 1.08 mg/dL (0.550-1.02) Glomerular Filtration Rate Calc 61 mL/min (>90) BUN/Creatinine Ratio 18.5 (10.0-20.0) Serum Glucose 119 mg/dL (74-106) Calcium Level 9.9 mg/dL (8.7-10.4) Total Bilirubin 2.4 mg/dL (0.2-1.0) Aspartate Amino Transferase (AST) 26 U/L (13-40) Alanine Aminotransferase (ALT) 15 U/L (7-40) Alkaline Phosphatase 105 U/L (46-116) Total Protein 7.3 g/dL (5.7-8.2) Albumin 4.5 g/dL (3.2-4.8) Triglycerides Level 645 mg/dL (< 150) Test 01/23/25 13:22 01/21/25 12:37 01/21/25 11:49 Hemoglobin A1c 7.4 % A1C (<5.7) Magnesium Level 2.0 mg/dL (1.6-2.6) Cholesterol Level 332 mg/dL (< 200) LDL Cholesterol mg/dL (< 100) HDL Cholesterol 35 mg/dL (40-59) Troponin I High Sensitivity 4 ng/L (</=34) Urine Color Light-yellow (Yellow) Urine Clarity Turbid (Clear) Urine pH 6.5 (5.0-9.0) Urine Specific [place] 1.018 (1.001-1.035) Urine Protein Negative (Negative) Urine Ketones Negative (Negative) Urine Blood Negative /uL (Negative) Urine Nitrite Negative (Negative) Urine Bilirubin Negative (Negative) Urine Urobilinogen 2 mg/dL (Negative) Urine Leukocyte Esterase 3+ /uL (Negative) Urine RBC 5 /hpf (0 - 4) Urine Microscopic WBC 84 /HPF (0-5) Urine Squamous Epithelial Cells Mod /hpf (<5) Urine Bacteria Few /hpf (None Seen) Urine Mucus Few (None Seen) Urine Glucose Normal mg/dL (Normal) Other Laboratory Tests 01/27/25 13:30 Brief Hx & Hospital Course: This is a 54 years old female with past medical history of hypothyroidism, diabetes, hyperlipidemia come to emergency department because of facial pain and numbness. Patient experience this about a week. She also feels like her heart racing and palpitation. The palpitation resolved on her own. Then is become more in is did not resolve so she come to emergency department for further evaluation. ER EKG review junctional rhythm. Cardiology was consulted. Echo was done showed normal EF. lvef 65% ,moderate LVH, RV normal function, left atrium enlarged mild,mild circumferential pericardial effusion noted, no HD compromise. No further workup from Cardiology. Patient also had hypothyroidism so thyroid panel was drawn in his showed her TSH is greater than 150, her free T4 is 0.42. The patient was admitted and was given IV Synthroid and also oral. Today the patient feels better. TSH is still showed greater than 150. However calculate free T4 improved to 0.94. Her total T3 and free T3 also improved. So I am going to discharge her home. I increase his Synthroid to 300 mcg daily. 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 Follow up with her PCP 1-2 weeks. Activity as tolerated. Diet per home diet. Physical exam: HEENT: Normocephalic atraumatic pupils equal react to light and accommodation. Extraocular muscles intact, conjunctiva pink, oropharynx moist, no thrush, no exudate. Lymphatic: No lymphadenopathy Cardiovascular exam: S1, S2 was heard. No murmurs, rubs, gallops Lung: Clear on auscultation bilaterally, no wheeze, rale, rhonchi. GI: Abdominal soft, nondistended, nontenderness, positive bowel sounds. Extremity: No crepitus, cyanosis, edema. Pedal pulses present bilateral. Full range of motion. Skin: Normal turgor, no rash. Psych: Alert, oriented x3. Neurology: No focal deficits, cranial nerve II to XII grossly intact. This medical document was created using an electronic medical record system with [employer] computerized dictation system. Although this document has been carefully reviewed, there may still be some phonetic and typographical errors. These areas are purely typographical due to imperfections of the software programs, and do not reflect any compromise in the patient's medical care. Condition at Discharge: Stable Final Diagnosis/Problems List Severe hypothyroidism,suspected myxedema Facial numbness and swelling, Palpitations, Junctional EKG rhythm, Diabetes type 2, Hyperlipidemia, Discharge Disposition: Home Discharge Statement: "Patient was advised to return to the ER or call 911 if any headaches, dizziness, shortness of breath, chest pain, abdominal pain, bleeding, fevers, or worsening of medical condition. Patient was counseled about treatment plan, medications, possible side effects, patientverbalized understanding. All questions were answered to the best of my ability. This discharge took greater then 30 minutes in planning, reviewing documentation, counseling the patient, and discussing with other team members." ASSESSMENT ASSESSMENT Assessment Date of Service: Jan 28, 2025 Billing Provider: VANESSA SHEN MD Common Visit Codes: 58799-OMI/OBS DISCH DAY >30min VANESSA SHEN MD Jan 28, 2025 15:27
[2025-01-28] MEDS ORDERED: LEVO150T10 PO (15:30)
[2025-01-28 15:46] LABS: Free T3 1.39 pg/mL (2.3-4.2)
[2025-01-28 15:47] LABS: Free T4 (Free Thyroxine) 0.94 ng/dL (0.89-1.76)
[2025-01-28 15:50] LABS: % Iron Saturation 25.3 % (15-50)
[2025-01-28 16:41] VITALS: BP 109/73; PULSE 67; RESP 20; TEMP 97.9; O2SAT 97
[2025-01-29 10:07] LABS: Thyroid Peroxidase (TPO) Ab 26 IU/mL (0-34)
[2025-01-29 13:07] LABS: Immunoglobulin A 391 mg/dL (87-352)
[2025-01-31 12:07] LABS: t-Transglutaminase (tTG) IgA 4 U/mL (0-3)
== END 2025-01-28 17:15 | disposition home or self-care (01) | DRG 645 ==
LOC: ER 09:08 → OVERFLOW 12:50 → TELE-EAST 22:41
PROVIDERS: ADMIT Internal Medicine; ATTEND Internal Medicine
DX: E03.9 Hypothyroidism, unspecified (principal); E11.9 Type 2 diabetes mellitus without complications; E78.5 Hyperlipidemia, unspecified; E66.9 Obesity, unspecified; E78.1 Pure hyperglyceridemia; Z91.148 Patient's other noncompliance with medication regimen for other reason; Z83.3 Family history of diabetes mellitus; Z82.49 Family history of ischemic heart disease and other diseases of the circulatory system; Z79.899 Other long term (current) drug therapy; Z98.51 Tubal ligation status; Z68.37 Body mass index [BMI] 37.0-37.9, adult
CPT/HCPCS: 36415; 70450; 71045; 80048; 80053; 80061; 81001; 82728; 82784; 82962; 83036; 83516; 83540; 83550; 83735; 84439; 84443; 84478; 84480; 84481; 84484; 85025; 86255; 86376; 93005; 93306; 99291; G0378; J1815; J3490

== ENCOUNTER 2025-02-23 12:21 | Inpatient (IN) | payer OTHER ==
[2025-02-23] VITALS (25 sets, daily range): BP systolic 94–125; BP diastolic 59–70; PULSE 64–89; RESP 9–28; TEMP 97.6–98.6; O2SAT 92–100
[~2025-02-23] VITALS: Ht 160 cm; Wt 93.1 kg
[~2025-02-23 12:21] MED LIST changes: -ATOR-507 PO; +ATOR40TA52 PO; -CEPH500C PO; -GABA-1308 PO; -GEMF600T PO; -HYDR10T PO; +LEVO150T10 PO; -LEVO200T7 PO
--- NOTE | 2025-02-23 12:38 | ED.PDOC ---
SOB-HPI HPI Comments sob started last night. pt was admitted on 01/21 for similar symptoms, due to hypothyroidism. yesterday, her Bs was in the mid 100. 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 Family History Family History: Reviewed,noncontributory to illness Social History Smoker: Non-Smoker Alcohol: Occasionally Drugs: Denies Drug Use Lives In: Home Constitutional: denies: chills, diaphoresis, fatigue, fever, malaise, sweats, weakness, others EENTM: denies: blurred vision, double vision, ear bleeding, ear discharge, ear drainage, ear pain, ear ringing, eye pain, eye redness, hearing loss, mouth pain, mouth swelling, nasal discharge, nose bleeding, nose congestion, nose pain, photophobia, tearing, throat pain, throat swelling, voice changes, others Respiratory: denies: cough, hemoptysis, orthopnea, SOB at rest, shortness of breath, SOB with excertion, stridor, wheezing, others Cardiovascular: denies: chest pain, dizzy spells, diaphoresis, Dyspnea on exertion, edema, irregular heart beat, left arm pain, lightheadedness, palpitations, PND, syncope, others Gastrointestinal: denies: abdomen distended, abdominal pain, blood streaked bowels, constipated, diarrhea, dysphagia, difficulty swallowing, hematemesis, melena, nausea, poor appetite, poor fluid intake, rectal bleeding, rectal pain, vomiting, others Genitourinary: denies: abnormal vagina bleeding, burning, dyspareunia, dysuria, flank pain, frequency, hematuria, incontinence, pain, , vagina dischar ge, urgency, others Neurological: denies: dizziness, fainting, headache, left sided numbness, left sided weakness, numbness, paresthesia, pre-existing deficit, right sided numbness, right sided weakness, seizure, speech problems, tingling, tremors, weakness, others Musculoskeletal: denies: back pain, gout, joint pain, joint swelling, muscle pain, muscle stiffness, neck pain, others Integumetry: denies: bruises, change in color, change in hair/nails, dryness, laceration, lesions, lumps, rash, wounds, others Allergic/Immunocompromised: denies: Difficulty Healing, Frequent Infections, Hives, Itching, others Hematologic/Lymphatic: denies: anemia, blood clots, easy bleeding, easy bruising, swollen glands, others Endocrine: denies: excessive hunger, excessive sweating, excessive thirst, excessive urination, flushing, intolerance to cold, intolerance to heat, unexplained weight gain, unexplained weight loss, others Psychiatric: denies: anxiety, bipolar disorder, depression, hopeless, panic disorder, schizophrenia, sleepless, suicidal, others All Other Systems: Reviewed and Negative Physical Exam General Appearance: No Apparent Distress, Normal HEENT: Normal ENT Inspection, Pharynx Normal, TMs Normal Neck: Full Range of Motion, Non-Tender, Normal, Normal Inspection Respiratory: Chest Non-Tender, Lungs Clear, No Accessory Muscle Use, No Respiratory Distress, Normal Breath Sounds Cardiovascular: No Edema, No JVD, No Murmur, No Gallop, Normal Peripheral Pulses, Regular Rate/Rhythm Breast Exam: Deferred Gastrointestinal: No Organomegaly, Non Tender, No Pulsatile Mass, Normal Bowel Sounds, Soft Genitalia: Deferred Pelvic: Deferred Rectal: Deferred Extremities: No calf tenderness, Normal capillary refill, Normal inspection, Normal range of motion, Non-tender, No pedal edema Musculoskeletal : Apperance: Normal Neurologic: Alert, e business manager II-XII nml as Tested, No Motor Deficits, Normal Affect, Normal Mood, No Sensory Deficits Cerebellar Function: Normal Reflexes: Normal Skin: Dry, Normal Color, Warm Lymphatic: No Adenopathy EKG EKG : Pulse Rate (adult): 62 [place]: Normal Cardiac Rhythm: Afib Block: None Hypertrophy: None ST: Inf, Nonsp Comments repeat ekg shows sb 49. inferior st and V2-V6 ST elevations with V1,V2, AVL ST depression consistent with STEMI Was a procedure done? Was a procedure done?: No Differential Dx Differential Diagnosis: Anxiety, Asthma, Bronchitis, Cardiogenic Shock, CHF, COPD, Dysrhythmia, Hyperventilation, Myocardial infarction, Panic Attack, Pneumonia, Pneumothorax, PSVT, Pulmonary Embolism, Respiratory Distress, Other (hyperthyroidism) X-Ray, Labs, Meds, VS Vital Signs Date Time Temp Pulse Resp B/P (MAP) Pulse Ox O2 Delivery O2 Flow Rate FiO2 02/23/25 13:00 98.7 47 12 96/37 (56) 98 98.7 02/23/25 13:00 12 98 Room Air* 0 21 02/23/25 12:43 97.8 50 16 109/30 (56) 100 97.8 02/23/25 12:43 Room Air 0 02/23/25 12:43 62 Lab Test 02/23/25 13:24 02/23/25 13:07 02/23/25 12:46 02/23/25 12:33 Range/Units POC Glucose 441 *H 450 *H 70-106 mg/dl Blood Gas Specimen Type Arterial Blood Gas Sample Site Right radial Blood Gas Patient Temperature 37.0 Arterial Blood Date Drawn [id number] Arterial Blood pH 7.456 H 7.350-7.450 Arterial Blood Partial Pressure CO2 31.3 L 32.0-45.0 mmHg Arterial Blood Partial Pressure O2 73.7 L 83.0-108.0 mmHg Arterial Blood HCO3 21.6 21.0-28.0 mmol/L Arterial Blood Oxygen Saturation 92.4 L 94.0-98.0 % Arterial Blood Base Excess -1.6 -2.0-3.0 mmol/L Arterial Blood Oxyhemoglobin 91.8 L 94.0-98.0 % Arterial Blood Carboxyhemoglobin 0.2 L 0.5-1.5 % Arterial Blood Methemoglobin 0.5 0.0-1.5 % Elian Test Yes Blood Gas Total Hemoglobin 11.20 L 12.0-16.0 g/dL Blood Gas Modality Room air FiO2 % 21.0 White Blood Count 7.7 4.4-10.8 10^3/uL Red Blood Count 3.78 L 4.0-5.20 10^6/uL Hemoglobin 11.6 L 12.2-16.2 g/dL Hematocrit 33.9 L 36.0-46.0 % Mean Corpuscular Volume 89.5 80.0-100.0 fL Mean Corpuscular Hemoglobin 30.6 28.0-32.0 pg Mean Corpuscular Hemoglobin Concent 34.2 32.0-36.0 g/dL Red Cell Distribution Width 13.7 11.8-14.3 % Platelet Count 132 L 140-450 10^3/uL Mean Platelet Volume 10.5 6.9-10.8 fL Neutrophils (%) (Auto) 87.6 H 37.0-80.0 % Lymphocytes (%) (Auto) 8.3 L 10.0-50.0 % Monocytes (%) (Auto) 3.3 0.0-12.0 % Eosinophils (%) (Auto) 0.0 0.0-7.0 % Basophils (%) (Auto) 0.8 0.0-2.0 % Neutrophils # (Auto) 6.8 1.6-8.6 10 ^3/uL Lymphocytes # (Auto) 0.6 0.4-5.4 10 ^3/uL Monocytes # (Auto) 0.3 0-1.3 10 ^3/uL Eosinophils # (Auto) 0 0-0.8 10 ^3/uL Basophils # (Auto) 0.1 0-0.2 10 ^3/uL Nucleated Red Blood Cells 0.1 % Prothrombin Time 11.4 9.3-11.8 sec Prothrombin Time INR 1.08 0.9-1.15 Activated Partial Thromboplast Time 25.5 24.5-34.5 SEC Sodium Level 133 L 136-145 mmol/L Potassium Level 5.3 H 3.5-5.1 mmol/L Chloride Level 98 98-107 mmol/L Carbon Dioxide Level 19 L 20-31 mmol/L Anion Gap 16 H 5-15 Blood Urea Nitrogen 23 9-23 mg/dL Creatinine 1.37 H 0.550-1.02 mg/dL Glomerular Filtration Rate Calc 46 >90 mL/min BUN/Creatinine Ratio 16.8 10.0-20.0 Serum Glucose 501 *H 74-106 mg/dL Serum Osmolality Pending Calcium Level 10.1 8.7-10.4 mg/dL Phosphorus Level 5.3 H 2.4-5.1 mg/dL Magnesium Level 1.8 1.6-2.6 mg/dL Troponin I High Sensitivity 87936 *H </=34 ng/L B-Type Natriuretic Peptide 127.24 0-100 pg/mL Beta-Hydroxybutyric Acid 0.307 < 0.4 mmol/L Thyroid Stimulating Hormone (TSH) 1.06 0.55-4.78 uIU/mL Free Thyroxine (T4) Calculated Pending Current Medications Medications (Trade) Dose Ordered Sig/Mairsol Route Start Time Stop Time Status Last Admin Sodium Chloride 1,000 ml @ 500 mls/hr Q2H IV 02/23/25 12:45 02/23/25 16:44 02/23/25 12:56 Diagnostic Test (Pha) (Accu-Chek Comfort Curve T) 1 strip Q90MIN 02/23/25 13:30 02/23/25 13:24 Insulin Glargine (Lantus) 15 units ONCE ONCE SC 02/23/25 12:45 02/23/25 12:55 DC 02/23/25 13:29 Aspirin 325 mg ONCE ONCE PO 02/23/25 13:30 02/23/25 13:31 DC 02/23/25 13:28 Time of 1ST Reevaluation: 13:40 Reevaluation 1ST: Unchanged Patient Education/Counseling: Diagnosis, Treatment, Prognosis, Need For Follow Up Family Education/Counseling: No Family Present Additional Information pt's initial EKG shows afib with subtle inf st elevations, and q WAVES. asa and heparin were ordered. repeat ekg shows more obvious st elevations of the inferior leads and anterior lateral leads, with reciprocal changes in V1V2m AVL. 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 Departure 1 Departure Time of Disposition: 13:44 Impression: Primary Impression: STEMI (ST elevation myocardial infarction) Qualified Codes: I21.11 - ST elevation (STEMI) myocardial infarction involving right coronary artery Additional Impressions: DKA, type 1 Qualified Codes: E10.10 - Type 1 diabetes mellitus with ketoacidosis without coma Renal failure Qualified Codes: N17.9 - Acute kidney failure, unspecified Disposition: ADMITTED INPATIENT Admit to: ICU Condition: Critical Discharged With: Self Critical Care Note Critical Care Time?: Yes (55 min-critical care time only) Critical care comment: due to concerns for deterioration of patient's condition, the care required my highest level of attention and readiness. i assessed the patient's condition, reviewed relevant documents, communicated with medical personnel, ordered the proper tests and treatments, reassessed for results and response to treatments, spoke to family and consultants and formulated a plan of care Stability Stability form required: No Heart Score Heart Score: Heart Score Response (Comments) Value History Moderate Suspicious [address]-Deviation 2 Age 45-64 1 Risk Factors >3 or Hx ASHD 2 Troponin >3 x's Normal limit 2 Total 8 BLAYNE WEST MD February 23, 2025 12:38
[2025-02-23] MEDS ORDERED: DEXTROSE (50%) 50ML SYRG IV PRN ×4 (12:45→20:00)
[2025-02-23 12:56] LABS: Basophils # (auto) 0.1 10 ^3/uL (0-0.2); Basophils % (auto) 0.8 % (0.0-2.0); Eosinophils # (auto) 0 10 ^3/uL (0-0.8); Hematocrit 33.9 % (36.0-46.0); Hemoglobin 11.6 g/dL (12.2-16.2); Lymphocytes # (auto) 0.6 10 ^3/uL (0.4-5.4); Lymphocytes % (auto) 8.3 % (10.0-50.0); Mean Corpuscular Hemoglobin 30.6 pg (28.0-32.0); Mean Corpuscular Hgb Conc. 34.2 g/dL (32.0-36.0); Mean Corpuscular Volume 89.5 fL (80.0-100.0); Monocytes # (auto) 0.3 10 ^3/uL (0-1.3); Monocytes % (auto) 3.3 % (0.0-12.0); Neutrophils # (auto) 6.8 10 ^3/uL (1.6-8.6); Neutrophils % (auto) 87.6 % (37.0-80.0); Nucleated Red Blood Cells % 0.1 %; Platelet Count (auto) 132 10^3/uL (140-450); Red Blood Cells 3.78 10^6/uL (4.0-5.20); Red Cell Distribution Width 13.7 % (11.8-14.3); White Blood Cell 7.7 10^3/uL (4.4-10.8)
[2025-02-23] MEDS: SODIUM CHLORIDE 0.9% 1,000 ML IV SCH ×3 (12:56→22:56)
[2025-02-23] MEDS ORDERED: HEPARIN DRIP/D5W 100UNITS/ML 250 ML IV SCH (13:00)
[2025-02-23 13:10] LABS: INR 1.08 (0.9-1.15); Partial Thromboplastin Time 25.5 SEC (24.5-34.5); Prothrombin Time 11.4 sec (9.3-11.8)
[2025-02-23 13:14] LABS: Anion Gap 16 (5-15); Calcium 10.1 mg/dL (8.7-10.4)
[2025-02-23 13:19] LABS: Glucose 501 mg/dL (74-106)
[2025-02-23 13:20] LABS: Base Excess -1.6 mmol/L (-2.0-3.0)
[2025-02-23 13:20] LABS: BUN/Creatinine Ratio 16.8 (10.0-20.0); Blood Urea Nitrogen 23 mg/dL (9-23); Carbon Dioxide 19 mmol/L (20-31); Chloride 98 mmol/L (98-107); Magnesium 1.8 mg/dL (1.6-2.6); Potassium 5.3 mmol/L (3.5-5.1); Sodium 133 mmol/L (136-145)
[2025-02-23 13:22] LABS: Phosphorus 5.3 mg/dL (2.4-5.1)
[2025-02-23] MEDS: ACCU-CHEK COMFORT CURVE STRIP VI SCH ×3 (13:24→21:00)
[2025-02-23] MEDS: ASPirin 325 MG TAB PO ONE (13:28)
[2025-02-23] MEDS: INSULIN LANTUS (GLARGINE) 1 /0.01ml (100units/ml) SC ONE (13:29)
[2025-02-23] MEDS: HEPARIN SODIUM (PORCINE) 5000 UNITS/ML 1ML VIAL IV ONE (13:42)
[2025-02-23] MEDS ORDERED: ACETAMINOPHEN 500 MG TAB or CAP PO PRN (13:45)
[2025-02-23] MEDS ORDERED: ONDANSETRON HCL 4 MG/2 ML VIAL IV PRN (13:45)
[2025-02-23] MEDS ORDERED: NITROGLYCERIN 0.4 MG SL TAB SL PRN (13:45)
[2025-02-23] MEDS ORDERED: SODIUM CHLORIDE 0.9% 1,000 ML IV SCH ×2 (13:45→16:00)
[2025-02-23] MEDS ORDERED: MORPHINE SULFATE INJ 2 MG/ml SYRG IV PRN ×2 (13:45)
[2025-02-23] MEDS: ANGIOMAX 250 MG VIAL IV ONE (13:48)
[2025-02-23] MEDS: VERAPAMIL 2.5MG/ML INJ 2ML VIAL IV ONE (13:48)
[2025-02-23] MEDS: HEPARIN SODIUM (PORCINE) 5000 UNITS/ML 1ML VIAL ONE (13:48)
[2025-02-23] MEDS: SODIUM CHL 0.9% 50 ML ONE (13:49)
[2025-02-23] MEDS: fentaNYL CITRATE 100 MCG/2 ML VL ONE (13:49)
[2025-02-23] MEDS: MIDAZOLAM HCL 2MG/2ML 2ml VIAL (1mg/ml) ONE (13:49)
[2025-02-23] MEDS: IODIXANOL 320MG/ML 100ML BTL IV ONE ×2 (13:49→14:46)
[2025-02-23] MEDS: LIDOCAINE 2%HCL (LOCAL ANESTH.) INJ 20ML MDV ONE (13:50)
[2025-02-23 14:07] LABS: Basophils # (auto) 0 10 ^3/uL (0-0.2); Basophils % (auto) 0.2 % (0.0-2.0); Eosinophils # (auto) 0 10 ^3/uL (0-0.8); Hematocrit 31.3 % (36.0-46.0); Hemoglobin 10.8 g/dL (12.2-16.2); Lymphocytes # (auto) 0.6 10 ^3/uL (0.4-5.4); Lymphocytes % (auto) 8.4 % (10.0-50.0); Mean Corpuscular Hemoglobin 30.7 pg (28.0-32.0); Mean Corpuscular Hgb Conc. 34.5 g/dL (32.0-36.0); Monocytes # (auto) 0.3 10 ^3/uL (0-1.3); Monocytes % (auto) 4.4 % (0.0-12.0); Neutrophils # (auto) 6.5 10 ^3/uL (1.6-8.6); Nucleated Red Blood Cells % 0.1 %; Platelet Count (auto) 104 10^3/uL (140-450); Red Blood Cells 3.52 10^6/uL (4.0-5.20); Red Cell Distribution Width 13.4 % (11.8-14.3); White Blood Cell 7.4 10^3/uL (4.4-10.8)
[2025-02-23] MEDS: ATROPINE SULF 1 MG/10ml SYR ONE (14:14)
--- NOTE | 2025-02-23 14:15 | DVH ---
CHEST RADIOGRAPH Indication: STEMI Technique: Single frontal view of the chest was obtained Comparison: XY CHEST PORTABLE on DOS: 01/21/25 FINDINGS: Lines and Tubes: None Lungs: No focal consolidation. Pleura: No effusion. No pneumothorax. Cardiomediastinal contours: Unremarkable Bones: No acute osseous abnormality. IMPRESSION: No acute cardiopulmonary disease.
--- NOTE | 2025-02-23 14:17 | DVHHP2 ---
History of Present Illness Reason for Visit: Shortness of breath History of Present Illness Patient is a 54-year-old female presenting to the emergency room with shortness of breath. Patient was placed on the hospital monitor, found to have ST- elevation, which was verified using 12 lead ECG. She denies any chest pain at this time only dyspnea. Twelve lead ECG reveals ST elevations in inferior and lateral leads. Significant history of the patient includes atrial fibrillation, with noted palpitations on previous admission on 01/21/2025, which time she was found to have severe hypothyroidism and myxedema coma. Other significant history of the patient includes diabetes mellitus, for which the patient's blood sugar was noted to be 501 with her basic metabolic panel. Cardiology has already assessed the patient bedside with plans for emergent left heart catheterization. Cardiovascular: AFIB, HTN GI: GERD Endocrine: Diabetes, Hypothyroidism Past Surgical History: Tubal Ligation Smoke: No ALCOHOL: none Drugs: None Review of Systems Constitutional: No: Fever, Chills, Sweats, Weakness, Malaise, Other Eyes: No: Pain, Vision change, Conjunctivae inflammation, Eyelid inflammation, Other, Redness ENT: No: Ear pain, Ear discharge, Nose pain, Nose discharge, Nose congestion, Mouth pain, Mouth swelling, Throat pain, Throat swelling, Other Respiratory: Shortness of breath, SOB with excertion Cardiovascular: Palpitations Gastrointestinal: No: Nausea, Vomiting, Abdominal Pain, Diarrhea, Constipation, Melena, Hematochezia, Other Genitourinary: No Dysuria, No Frequency, No Incontinence, No Hematuria, No Retention, No Other Musculoskeletal: No: other, neck pain, shoulder pain, arm pain, back pain, hand pain, leg pain, foot pain Skin: No: Rash, Lesions, Jaundice, Bruising, Other Neurological: No: Weakness, Numbness, Incoordination, Change in speech, Confusion, Seizures, Other Allergies: Coded Allergies: NO KNOWN ALLERGIES (Unverified , 04/28/15) Medications Current Medications Medications Dose Ordered Sig/Marisol Route Start Time Stop Time Status Last Admin Dose Admin Sodium Chloride 1,000 ml @ 500 mls/hr Q2H IV 02/23/25 12:45 02/23/25 16:44 02/23/25 12:56 500 MLS/HR Sodium Chloride 1,000 ml @ 250 mls/hr Q4H IV 02/23/25 16:45 02/23/25 18:44 Sodium Chloride 1,000 ml @ 150 mls/hr Q6H40M IV 02/23/25 18:45 Insulin Human (Reg)/Sodium Chloride 100 ml @ 0.5 mls/hr Q24H IV 02/23/25 12:45 Dextrose 50 ml UD PRN IV 02/23/25 12:45 Diagnostic Test (Pha) 1 strip Q90MIN 02/23/25 13:30 02/23/25 13:24 1 STRIP Insulin Glargine 15 units DAILY SC 02/24/25 10:00 Heparin Sodium/ Dextrose 250 ml @ 10 mls/hr Q24H IV 02/23/25 13:00 Exam Vital Signs Vital Signs Date Time Temp Pulse Resp B/P (MAP) Pulse Ox O2 Delivery O2 Flow Rate FiO2 02/23/25 13:26 49 02/23/25 13:00 98.7 12 96/37 (56) 98 98.7 02/23/25 13:00 Room Air* 0 21 General Appearance: Alert, Oriented X3, Cooperative, moderate distress HEENT: Atraumatic, PERRLA Respiratory: Clear to auscultation, Normal air movement Cardiovascular: Normal S1, Normal S2, Other (Sinus bradycardia with noted ST changes) Neuro: Normal speech, Cranial nerves 3-12 NL Psych/Mental Status: Mental status NL, Mood NL Labs/Xrays Labs Test 02/23/25 13:34 02/23/25 13:24 02/23/25 13:07 02/23/25 12:46 Range/Units White Blood Count 7.4 4.4-10.8 10^3/uL Red Blood Count 3.52 L 4.0-5.20 10^6/uL Hemoglobin 10.8 L 12.2-16.2 g/dL Hematocrit 31.3 L 36.0-46.0 % Mean Corpuscular Volume 89.0 80.0-100.0 fL Mean Corpuscular Hemoglobin 30.7 28.0-32.0 pg Mean Corpuscular Hemoglobin Concent 34.5 32.0-36.0 g/dL Red Cell Distribution Width 13.4 11.8-14.3 % Platelet Count 104 L 140-450 10^3/uL Mean Platelet Volume 10.6 6.9-10.8 fL Neutrophils (%) (Auto) 87.0 H 37.0-80.0 % Lymphocytes (%) (Auto) 8.4 L 10.0-50.0 % Monocytes (%) (Auto) 4.4 0.0-12.0 % Eosinophils (%) (Auto) 0.0 0.0-7.0 % Basophils (%) (Auto) 0.2 0.0-2.0 % Neutrophils # (Auto) 6.5 1.6-8.6 10 ^3/uL Lymphocytes # (Auto) 0.6 0.4-5.4 10 ^3/uL Monocytes # (Auto) 0.3 0-1.3 10 ^3/uL Eosinophils # (Auto) 0 0-0.8 10 ^3/uL Basophils # (Auto) 0 0-0.2 10 ^3/uL Nucleated Red Blood Cells 0.1 % Troponin I High Sensitivity 32395 *H </=34 ng/L POC Glucose 441 *H 70-106 mg/dl Blood Gas Specimen Type Arterial Blood Gas Sample Site Right radial Blood Gas Patient Temperature 37.0 Arterial Blood Date Drawn [id number] Arterial Blood pH 7.456 H 7.350-7.450 Arterial Blood Partial Pressure CO2 31.3 L 32.0-45.0 mmHg Arterial Blood Partial Pressure O2 73.7 L 83.0-108.0 mmHg Arterial Blood HCO3 21.6 21.0-28.0 mmol/L Arterial Blood Oxygen Saturation 92.4 L 94.0-98.0 % Arterial Blood Base Excess -1.6 -2.0-3.0 mmol/L Arterial Blood Oxyhemoglobin 91.8 L 94.0-98.0 % Arterial Blood Carboxyhemoglobin 0.2 L 0.5-1.5 % Arterial Blood Methemoglobin 0.5 0.0-1.5 % Elian Test Yes Blood Gas Total Hemoglobin 11.20 L 12.0-16.0 g/dL Blood Gas Modality Room air FiO2 % 21.0 Prothrombin Time 11.4 9.3-11.8 sec Prothrombin Time INR 1.08 0.9-1.15 Activated Partial Thromboplast Time 25.5 24.5-34.5 SEC Sodium Level 133 L 136-145 mmol/L Potassium Level 5.3 H 3.5-5.1 mmol/L Chloride Level 98 98-107 mmol/L Carbon Dioxide Level 19 L 20-31 mmol/L Anion Gap 16 H 5-15 Blood Urea Nitrogen 23 9-23 mg/dL Creatinine 1.37 H 0.550-1.02 mg/dL Glomerular Filtration Rate Calc 46 >90 mL/min BUN/Creatinine Ratio 16.8 10.0-20.0 Serum Glucose 501 *H 74-106 mg/dL Serum Osmolality 316 H 278-298 mOsm/kg Calcium Level 10.1 8.7-10.4 mg/dL Phosphorus Level 5.3 H 2.4-5.1 mg/dL Magnesium Level 1.8 1.6-2.6 mg/dL B-Type Natriuretic Peptide 127.24 0-100 pg/mL Beta-Hydroxybutyric Acid 0.307 < 0.4 mmol/L Thyroid Stimulating Hormone (TSH) 1.06 0.55-4.78 uIU/mL Assessment/Plan Assessment/Plan Impression: -STEMI, involving inferior and lateral mccrary -diabetes mellitus, uncontrolled with severe hyperglycemia -obesity -hypothyroidism -underlying atrial fibrillation, 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 Early cardiogenic shock -repeat labs in a.m. Critical care time spent with patient discussing and formulating plan of care: 40 minutes. This does not include time spent performing procedures. This medical document was created using an electronic medical record system with [employer] dictation system. Although this document has been carefully reviewed, there may still be some phonetic and typographical errors. These areas are purely typographical due to imperfections of the software programs, and do not reflect any compromise in the patient's medical care. Plan discussed with: Patient, Other (RN) My Orders Orders - FABIOLA MALIK NP Procedure Category Date Status Time Admit ADMIT 02/23/25 Transmitted 13:43 Nitroglycerin [facility] 02/23/25 Logged Sublingual (Ntrostat 13:45 Morphine Sulfate [facility] 02/23/25 Logged Injection 13:45 Notify Of Changes [facility] 02/23/25 In Process From Base 13:43 Durability Engineer For [facility] 02/23/25 In Process 24 Hours 13:43 Emergency Dysrhythmia [facility] 02/23/25 In Process Protocol 13:43 Rhythm Strips Once DAVID 02/23/25 In Process Every Shift 13:43 Oxygen By Nasal RT 02/23/25 Transmitted Cannula 13:43 Hemoglobin A1c LAB 02/23/25 In Process 13:43 Basic Metabolic Panel [facility] 02/24/25 Verified 04:00 Complete Blood Count LAB 02/23/25 In Process 13:43 Consistent DIET 02/23/25 Transmitted Carb(Ccho)Diabetes Dinner Pantoprazole Tablet [facility] 02/24/25 Logged (Protonix Tablet) 06:00 Sodium Chloride 0.9% [facility] 02/23/25 Logged 13:45 Morphine Sulfate [facility] 02/23/25 Logged Injection 13:45 Hydrocodone-Acet [facility] 02/23/25 Logged 5/325mg Tab ([place] 13:45 Acetaminophen Tab Or [facility] 02/23/25 Logged Cap (Tylenol Tablet 13:45 Ondansetron Hcl [facility] 02/23/25 Logged (Zofran) 13:45 Date of Service: February 23, 2025 Billing Provider: FABIOLA MALIK NP Common Visit Codes: [id number] CARE 30-74 MIN FABIOLA MALIK NP February 23, 2025 14:17
[2025-02-23] MEDS: CLOPIDOGREL BISULFATE 75 MG TAB ONE ×2 (15:11)
[2025-02-23] MEDS: INSULIN DRIP 100 UNIT/100ML 100 ML IV SCH ×3 (15:35→22:48)
--- NOTE | 2025-02-23 15:35 | DVHOP2 ---
Operative Report - 2 Report Details Date: 02/23/25 Preop Diagnosis: Acute ST-elevation myocardial infarction Postop Diagnosis: Successful PTCA and stenting of the occluded RCA. PTCA and stenting of the LAD and diagonal. Surgeon: Amy Pa MD Anesthesiologist: Conscious sedation Anesthesia: Mac, Local Consent: The patient was informed of the risks and benefits of the procedure. These include but are not limited to complications of anesthesia, postoperative infection, incomplete relief of symptoms, recurrence of symptoms, damage to blood vessels, nerves and tendons, deep venous thrombosis, pulmonary embolism and possible need for repeat surgery in the future. Complications: No complications Findings: Occluded RCA. Stenotic LAD. EF 45%. inferior hypokinesis Indications for Surgery: Acute ST-elevation myocardial infarction Name of Procedure Performed Left heart catheterization. Bilateral cine coronary angiography. Left ventriculography. Fractional flow reserve evaluation of the RCA. PTCA and stenting of the RCA. PTCA and stenting of the LAD and diagonal arteries. Procedure Details Procedure Details: Prior local anesthesia with 2% lidocaine to the right wrist and full informed consent obtained patient was prepped and draped in usual fashion followed by placement of a six [place] slim catheter into the radial artery through which a 3.0 EBU guide was used for ventriculography and cannulation of both right and left coronary ostia. The same guide was used for coronary intervention of both the RCA and LAD. Hemodynamics: Aortic blood pressure was 110/70. End-diastolic pressure was eight. There was no gradient across the aortic valve on pullback Coronary: The RCA is a large vessel it is 100% occluded proximally Left main is a large vessel it is normal. Left anterior descending coronary artery is a large vessel with what appears to be proximal % stenosis. Mid and distal segments are free of significant disease. First diagonal has an 80% stenosis. The 2nd diagonal has a 75% stenosis. Circumflex is a large vessel with two marginals free of significant disease. Ventriculography in the ROBERTO projection shows an EF of 45% with inferior hypokinesis. Coronary intervention was performed through a 0.0 EBU guide. A Specter wire was placed across the area of stenosis and a two five balloon was used to pre dilate mid and proximal RCA. Several balloon dilatations were required. We then followed with a three 5 x 18 mm Medtronic rasheed [place] drug-eluting stent at approximately 13 atmospheres. There was excellent antegrade flow without thrombus formation and/or dissection. PDA and posterolateral branches had slightly sluggish flow /ELAYNE two flow subsequent to angioplasty The left main is large and normal. Left anterior descending coronary artery underwent evaluation with a catheterization works program revealing 0.71 FFR indicative of significant disease. The pre-dilated with the 3-0 balloon and post dilated with the same balloon that we stented with which was a three 5 x 15 mm stent. This was expanded to a proximally 14 atmospheres. We noticed a impingement on the diagonal branch. We then placed a choice floppy wire into the diagonal artery pre-dilated with the two we will balloon and found it to be dissected. We then placed a two five by 8 mm Medtronic rasheed [place] drug- eluting stent at approximately 13 atmospheres. We then placed a 3-0 by 15 stent into the proximal to mid LAD at the junction previously placed stents due to edge dissection and plaque shift. A kissing balloon technique was used with the two five balloon used diagonal and simultaneously with the balloon used to stent the LAD. There was excellent antegrade flow without thrombus formation under dissection. Impression successful PTCA and stenting of the RCA. Successful PTCA and stenting of the LAD and Diagonal, successful treatment of acute inferior wall ST-elevation myocardial infarction. Mildly diminished left ventricular end-diastolic pressure at rest. Recommendations: Dual antiplatelet therapy risk factor modification. Lipid-lowering therapy. ROSA inhibitors beta blockers and Statin therapy. Condition Good Disposition Still a Patient Date of Service: February 23, 2025 Billing Provider: AMY PA Sr., MD Cardiology Common Codes: [id number] INP/OBS CARE (High) Cardiology Procedure Codes: 79697 -PTCA W/STENT PLACEMENT, [id number] ADD CORONARY BRANCH, [id number]-[id number] FOR STEMI W/STENT AMY PA Sr., MD February 23, 2025 15:35
--- NOTE | 2025-02-23 15:41 | DVHINCON2 ---
Date Seen: February 23, [address] Rice Reason for Consultation STEMI History of Present Illness This 54-year-old female presents in the ED with a chief complaint of shortness of breath. The patient states shortness of breath associated with dizziness, palpitations, hypotension, and elevated blood sugar for which prompted her to visit the emergency department. In the emergency department the patient underwent went a 12 lead ECG revealing acute STEMI in the inferior and lateral leads and atrial fibrillation at a controlled rate. Upon assessment, the patient is diaphoresis, clammy, with hypotension. The patient is taken to crime laboratory analyst immediately. Past medical history of diabetes, hypothyroidism, myxedema coma, and obesity. Past Medical History As stated in HPI Past Surgical History Denies Family History: Diabetes mellitus G8 MOTHER FH: cancer G8 FATHER (NO HISTORY OF FATHER) Hypertension G8 MOTHER Family History Reviewed, non-contributory to the management of this case. Social History The patient lives at home, denies smoking, alcohol or illicit drugs abuse. Allergies: Coded Allergies: NO KNOWN ALLERGIES (Unverified , 04/28/15) Home Meds Active Scripts Levothyroxine Sodium (Levothyroxine Sodium) 150 Mcg Tab, 300 MCG PO DAILY, #180 TAB take 2 tablets daily in am in an empty stomach before breakfast Prov:VANESSA SHEN MD 01/28/25 Cholecalciferol (VITAMIN D3) 5,000 Unit Tab, 5000 UNIT PO DAILY for 30 Days, #30 TAB Prov:SOTO WERNER MD 12/06/21 Insulin Glargine (Lantus) 100 Unit/Ml Inj, 12 UNIT SC HS for 30 Days, #30 INJ Prov:SOTO WERNER MD 12/06/21 Reported Medications Atorvastatin Calcium (ATORVASTATIN CALCIUM) 40 Mg Tab, 1 TAB PO DAILY, #30 TAB 5 Refills 01/21/25 Metformin Hydrochloride (Metformin Hcl) 500 Mg Tab, 1000 MG PO BID for 30 Days, MG 11/22/21 Current Medications Current Medications Medications (Trade) Dose Ordered Sig/Marisol Route PRN Reason Start Time Stop Time Status Last Admin Sodium Chloride 1,000 ml @ 500 mls/hr Q2H IV 02/23/25 12:45 02/23/25 16:44 02/23/25 12:56 Sodium Chloride 1,000 ml @ 250 mls/hr Q4H IV 02/23/25 16:45 02/23/25 18:44 Sodium Chloride 1,000 ml @ 150 mls/hr Q6H40M IV 02/23/25 18:45 Insulin Human (Reg)/Sodium Chloride 100 ml @ 0.5 mls/hr Q24H IV 02/23/25 12:45 02/23/25 15:35 Dextrose 50 ml UD PRN IV SEE CURRENT ALGORITHM or SCALE 02/23/25 12:45 Diagnostic Test (Pha) (Accu-Chek Comfort Curve T) 1 strip Q90MIN 02/23/25 13:30 02/23/25 15:28 Insulin Glargine (Lantus) 15 units DAILY SC 02/24/25 10:00 Heparin Sodium/ Dextrose 250 ml @ 10 mls/hr Q24H IV 02/23/25 13:00 02/23/25 15:17 DC Nitroglycerin (Ntrostat Sublingual) 0.4 mg Q5MINP PRN SL FOR CHEST PAIN 02/23/25 13:45 Morphine Sulfate 2 mg Q30M PRN IV FOR CHEST PAIN 02/23/25 13:45 Pantoprazole Sodium (Protonix Tablet) 40 mg DAILY@0600 PO 02/24/25 06:00 Sodium Chloride 1,000 ml @ 125 mls/hr Q8H IV 02/23/25 13:45 02/23/25 14:31 DC Morphine Sulfate 1 mg Q4HPRN PRN IV SEVERE PAIN (7-10 PAIN SCALE) 02/23/25 13:45 Acetaminophen/ Hydrocodone Bitart ([place] 5/325MG Tab) 1 tab Q6HPRN PRN PO MODERATE PAIN (4-6 PAIN SCALE) 02/23/25 13:45 Acetaminophen (Tylenol Tablet Or Capsule) 500 mg Q8HP PRN PO PAIN SCALE 1-3 OR TEMP>100.4 02/23/25 13:45 Ondansetron HCl (Zofran) 4 mg Q6HP PRN IV NAUSEA / VOMITING 02/23/25 13:45 Review of Systems Constitutional: No symptom reported Ears, Nose, & Throat: No symptom reported Eyes: No symptom reported Neurological: No symptoms reported Pulmonary/Respiratory: No symptom reported Cardiovascular: Chest pain Gastrointestinal: No symptom reported Genitourinary: No symptom reported Musculoskeletal: No symptom reported Skin: No symptom reported Psychiatric: No symptom reported Endocrine: No symptom reported Hematologic/Lymphatic: No symptom reported Vital Signs Vital Signs Date Time Temp Pulse Resp B/P (MAP) Pulse Ox O2 Delivery O2 Flow Rate FiO2 02/23/25 15:26 68 17 108/63 (78) 98 02/23/25 15:12 97.6 97.6 02/23/25 13:00 Room Air* 0 21 Physical Exam INITIAL VITAL SIGNS: Reviewed by me GENERAL: Alert and interactive. In acute distress HEAD: Head is normocephalic and atraumatic. EYES: EOMI, PERRL. No scleral icterus. No conjunctival injection. ENT: Moist mucous membranes. NECK: Supple, No masses, Full range of motion. RESPIRATORY: No tachypnea. Clear breath sounds bilaterally. No wheezing, rales, rhonchi. CV: Atrial fibrillation with ST elevation NM GI/: Active bowel sounds, soft, nondistended, nontender. No guarding. No rebound. No masses. No CVA tenderness. INTEGUMENTARY: Warm and dry. No obvious rashes. NEUROLOGIC: Alert and oriented. Face is symmetric. Speech is normal. Moves all extremities equally. Labs/Diagnostic Data Labs Test 02/23/25 15:22 02/23/25 13:34 02/23/25 13:07 02/23/25 12:46 Range/Units POC Glucose 355 H 70-106 mg/dl White Blood Count 7.4 4.4-10.8 10^3/uL Red Blood Count 3.52 L 4.0-5.20 10^6/uL Hemoglobin 10.8 L 12.2-16.2 g/dL Hematocrit 31.3 L 36.0-46.0 % Mean Corpuscular Volume 89.0 80.0-100.0 fL Mean Corpuscular Hemoglobin 30.7 28.0-32.0 pg Mean Corpuscular Hemoglobin Concent 34.5 32.0-36.0 g/dL Red Cell Distribution Width 13.4 11.8-14.3 % Platelet Count 104 L 140-450 10^3/uL Mean Platelet Volume 10.6 6.9-10.8 fL Neutrophils (%) (Auto) 87.0 H 37.0-80.0 % Lymphocytes (%) (Auto) 8.4 L 10.0-50.0 % Monocytes (%) (Auto) 4.4 0.0-12.0 % Eosinophils (%) (Auto) 0.0 0.0-7.0 % Basophils (%) (Auto) 0.2 0.0-2.0 % Neutrophils # (Auto) 6.5 1.6-8.6 10 ^3/uL Lymphocytes # (Auto) 0.6 0.4-5.4 10 ^3/uL Monocytes # (Auto) 0.3 0-1.3 10 ^3/uL Eosinophils # (Auto) 0 0-0.8 10 ^3/uL Basophils # (Auto) 0 0-0.2 10 ^3/uL Nucleated Red Blood Cells 0.1 % Hemoglobin A1c 6.9 H <5.7 % A1C Troponin I High Sensitivity [id number] *H </=34 ng/L Blood Gas Specimen Type Arterial Blood Gas Sample Site Right radial Blood Gas Patient Temperature 37.0 Arterial Blood Date Drawn [id number] Arterial Blood pH 7.456 H 7.350-7.450 Arterial Blood Partial Pressure CO2 31.3 L 32.0-45.0 mmHg Arterial Blood Partial Pressure O2 73.7 L 83.0-108.0 mmHg Arterial Blood HCO3 21.6 21.0-28.0 mmol/L Arterial Blood Oxygen Saturation 92.4 L 94.0-98.0 % Arterial Blood Base Excess -1.6 -2.0-3.0 mmol/L Arterial Blood Oxyhemoglobin 91.8 L 94.0-98.0 % Arterial Blood Carboxyhemoglobin 0.2 L 0.5-1.5 % Arterial Blood Methemoglobin 0.5 0.0-1.5 % Elian Test Yes Blood Gas Total Hemoglobin 11.20 L 12.0-16.0 g/dL Blood Gas Modality Room air FiO2 % 21.0 Prothrombin Time 11.4 9.3-11.8 sec Prothrombin Time INR 1.08 0.9-1.15 Activated Partial Thromboplast Time 25.5 24.5-34.5 SEC Sodium Level 133 L 136-145 mmol/L Potassium Level 5.3 H 3.5-5.1 mmol/L Chloride Level 98 98-107 mmol/L Carbon Dioxide Level 19 L 20-31 mmol/L Anion Gap 16 H 5-15 Blood Urea Nitrogen 23 9-23 mg/dL Creatinine 1.37 H 0.550-1.02 mg/dL Glomerular Filtration Rate Calc 46 >90 mL/min BUN/Creatinine Ratio 16.8 10.0-20.0 Serum Glucose 501 *H 74-106 mg/dL Serum Osmolality 316 H 278-298 mOsm/kg Calcium Level 10.1 8.7-10.4 mg/dL Phosphorus Level 5.3 H 2.4-5.1 mg/dL Magnesium Level 1.8 1.6-2.6 mg/dL B-Type Natriuretic Peptide 127.24 0-100 pg/mL Beta-Hydroxybutyric Acid 0.307 < 0.4 mmol/L Thyroid Stimulating Hormone (TSH) 1.06 0.55-4.78 uIU/mL ROCEDURE(s): CXR1 - CHEST XRAY 1 VIEW REASON: STEMI ORDER NUMBER(s): [id number], ACCESSION NUMBER(s): [id number] CHEST RADIOGRAPH Indication: STEMI Technique: Single frontal view of the chest was obtained Comparison: XY CHEST PORTABLE on DOS: 01/21/25 FINDINGS: Lines and Tubes: None Lungs: No focal consolidation. Pleura: No effusion. No pneumothorax. Cardiomediastinal contours: Unremarkable Bones: No acute osseous abnormality. IMPRESSION: No acute cardiopulmonary disease. Assessment Acute inferior wall ST-elevation NM S/P PTCA of the RCA, LAD, diagonal SHANNON x3 JESSA on CKD Diabetes mellitus type II Hypothyroidism Obesity Plan/Recommendation (Dr. Smith ): Dual antiplatelet therapy risk factor modification. Lipid-lowering therapy with Statins. ROSA inhibitors beta blockers when bp and heart rate are stable Echocardiogram Close cardiac monitoring This medical document was created using an electronic medical record system with voice recognition software and computerized dictation system. Although this document has been carefully reviewed, there might still be some phonetic and typographical errors. Occasional wrong-word or ``sound-alike substitutions may have occurred due to the inherent limitations of voice recognition software. These areas are purely typographical due to imperfections of the software programs and do not reflect any compromise in the patient's medical care. Please read the chart carefully and recognize, using context, where these substitutions have occurred. Plan discussed with: Patient Plan discussed with: Patient NYHA Physical activity limitations: NA Date of Service: February 23, 2025 Billing Provider: AMY SMITH Sr., MD Cardiology Common Codes: CONSULT ONLY Cardiology Consultation Codes: [id number] CONSULT <60MIN RIAN TAYLOR February 23, 2025 15:40
[2025-02-23 19:04] LABS: Anion Gap 12 (5-15); Carbon Dioxide 22 mmol/L (20-31); Chloride 104 mmol/L (98-107); Sodium 138 mmol/L (136-145)
[2025-02-23 19:06] LABS: Calcium 8.5 mg/dL (8.7-10.4)
[2025-02-23 19:10] LABS: BUN/Creatinine Ratio 23.4 (10.0-20.0); Blood Urea Nitrogen 22 mg/dL (9-23)
[2025-02-23 19:14] LABS: Glucose 286 mg/dL (74-106)
[2025-02-23] MEDS ORDERED: INSULIN LANTUS (GLARGINE) 1 /0.01ml (100units/ml) SC ONE (19:45)
[2025-02-23] MEDS: HYDROcodone-ACET 5/325MG TAB PO PRN (20:05)
[2025-02-23 21:44] LABS: INR 1.14 (0.9-1.15); Partial Thromboplastin Time 31.9 SEC (24.5-34.5); Prothrombin Time 11.9 sec (9.3-11.8)
[2025-02-23] MEDS: ATORVASTATIN 20 MG TAB PO SCH (22:47)
[2025-02-24] VITALS (17 sets, daily range): BP systolic 88–118; BP diastolic 54–70; PULSE 66–78; RESP 10–24; TEMP 97.9–98.3; O2SAT 91–100
[2025-02-24 00:58] LABS: Potassium 3.6 mmol/L (3.5-5.1); Sodium 140 mmol/L (136-145)
[2025-02-24 00:59] LABS: Anion Gap 12 (5-15); Carbon Dioxide 20 mmol/L (20-31)
[2025-02-24 01:00] LABS: Chloride 108 mmol/L (98-107)
[2025-02-24 01:04] LABS: BUN/Creatinine Ratio 22.5 (10.0-20.0); Blood Urea Nitrogen 16 mg/dL (9-23)
[2025-02-24 01:26] LABS: Glucose 143 mg/dL (74-106)
[2025-02-24] MEDS ORDERED: DEXTROSE (50%) 50ML SYRG IV PRN (02:30)
[2025-02-24] MEDS: InsuLIN REG 1unit/0.01ml Soln (100units/ml) SC SCH (03:55)
[2025-02-24] MEDS: ACCU-CHEK COMFORT CURVE STRIP VI SCH (03:55)
[2025-02-24 04:10] LABS: Urine Bacteria None Seen /hpf (None Seen)
[2025-02-24 04:10] LABS: Basophils # (auto) 0 10 ^3/uL (0-0.2); Basophils % (auto) 0.3 % (0.0-2.0); Eosinophils # (auto) 0 10 ^3/uL (0-0.8); Eosinophils % (auto) 0.1 % (0.0-7.0); Hematocrit 28.8 % (36.0-46.0); Hemoglobin 9.8 g/dL (12.2-16.2); Lymphocytes # (auto) 1.5 10 ^3/uL (0.4-5.4); Lymphocytes % (auto) 20.1 % (10.0-50.0); Mean Corpuscular Hemoglobin 30.3 pg (28.0-32.0); Mean Corpuscular Volume 89.1 fL (80.0-100.0); Monocytes # (auto) 0.7 10 ^3/uL (0-1.3); Monocytes % (auto) 8.6 % (0.0-12.0); Neutrophils # (auto) 5.4 10 ^3/uL (1.6-8.6); Neutrophils % (auto) 70.9 % (37.0-80.0); Nucleated Red Blood Cells % 0.1 %; Platelet Count (auto) 101 10^3/uL (140-450); Red Blood Cells 3.23 10^6/uL (4.0-5.20); Red Cell Distribution Width 13.5 % (11.8-14.3); White Blood Cell 7.6 10^3/uL (4.4-10.8)
[2025-02-24 04:20] LABS: Urine Blood Negative /uL (Negative); Urine Clarity Clear (Clear); Urine Color Yellow (Yellow); Urine Hyaline Cast FEW /lpf (0 - 2); Urine Protein, UAD 1+ (Negative); Urine Squamous Epithelial Cell FEW /hpf (<5); Urine Urobilinogen 2 mg/dL (Negative); Urine WBC 4 /HPF (0-5); Urine pH 6.5 (5.0-9.0)
[2025-02-24 04:34] LABS: Urine Specific Gravity > 1.050 (1.001-1.035)
[2025-02-24 04:37] LABS: Potassium 3.6 mmol/L (3.5-5.1); Sodium 141 mmol/L (136-145)
[2025-02-24 04:38] LABS: Anion Gap 11 (5-15); Carbon Dioxide 23 mmol/L (20-31)
[2025-02-24 04:44] LABS: BUN/Creatinine Ratio 24.3 (10.0-20.0); Blood Urea Nitrogen 18 mg/dL (9-23)
[2025-02-24 05:02] LABS: Calcium 8.6 mg/dL (8.7-10.4); Chloride 107 mmol/L (98-107); Glucose 133 mg/dL (74-106)
[2025-02-24] MEDS: PANTOPRAZOLE 40 MG TAB PO SCH (06:57)
[2025-02-24] MEDS ORDERED: INSULIN LANTUS (GLARGINE) 1 /0.01ml (100units/ml) SC SCH ×4 (07:00→10:00)
[2025-02-24] MEDS: INSULIN LANTUS (GLARGINE) 1 /0.01ml (100units/ml) SC SCH (07:18)
[2025-02-24] MEDS: CLOPIDOGREL BISULFATE 75 MG TAB PO SCH (09:41)
[2025-02-24] MEDS: ASPirin 81 mg TAB PO SCH (09:41)
--- NOTE | 2025-02-24 10:38 | ECG ---
[facility] Test Date: 2025-02-23 Test Time: 13:26:22 Pat Name: LILY SAGASTUME Department: ED Room: 0223T A Gender: F Hand Etcher: chantel : 1970 Requested By: BLAYNE WEST Order Number: [id number] Reading MD: Hernandez Pa Measurements Intervals [place] Rate: 49 P: 44 MI: 341 QRS: 92 QRSD: 109 T: 75 QT: 457 QTc: 413 Interpretive Statements Bradycardia with irregular rate Prolonged MI interval Inferior infarct, acute (RCA) Lateral leads are also involved Probable RV involvement, suggest recording right precordial leads Baseline wander in lead(s) V5 Electronically Signed On 03-03-2025 10:53:56 PDT by Hernandez Pa Please click the below link to view image of tracing.
--- NOTE | 2025-02-24 13:41 | ECG ---
[facility] Test Date: 2025-02-23 Test Time: 12:37:23 Pat Name: LILY SAGASTUME Department: ER Room: 0223T A Gender: F Naval Architect Specialist: JUSTINE : 1970 Requested By: BLAYNE WEST Order Number: [id number] Reading MD: Hernandez Pa Measurements Intervals [place] Rate: 62 P: 0 TN: 0 QRS: 47 QRSD: 86 T: 67 QT: 424 QTc: 431 Interpretive Statements Atrial fibrillation Inferior infarct, acute (RCA) Probable RV involvement, suggest recording right precordial leads Electronically Signed On 03-03-2025 10:52:31 PDT by Hernandez Pa Please click the below link to view image of tracing.
--- NOTE | 2025-02-24 15:55 | DVHPN2 ---
Subjective Patient denies any symptoms at this time. Reviewed: Care Plan, H&P, Labs, Medications Changes from previous H/P or p: No Changes General: Per HPI Eyes: No Pain, No Vision change, No Conjunctivae inflammation, No Eyelid inflammation, No Other, No Redness ENT: No Ear pain, No Ear discharge, No Nose pain, No Nose discharge, No Nose congestion, No Mouth pain, No Mouth swelling, No Throat pain, No Throat swelling, No Other Cardiovascular: Palpitations Respiratory: Shortness of breath, SOB with excertion Gastrointestinal: No Nausea, No Vomiting, No Abdominal Pain, No Diarrhea, No Constipation, No Melena, No Hematochezia, No Other Genitourinary: No Dysuria, No Frequency, No Incontinence, No Hematuria, No Retention, No Other Musculoskeletal: No other, No neck pain, No shoulder pain, No arm pain, No back pain, No hand pain, No leg pain, No foot pain Skin: No Rash, No Lesions, No Jaundice, No Bruising, No Other Objective Vitals Vital Signs Date Time Temp Pulse Resp B/P (MAP) Pulse Ox O2 Delivery O2 Flow Rate FiO2 02/24/25 12:40 97.9 73 18 97/62 (74) 98 97.9 02/24/25 08:00 Room Air* 0 21 Intake/Output Intake and Output 02/24/25 07:00 Intake Total 2627 ml Balance 2627 ml Intake Oral 300 ml IV Total 2327 ml # Voids 2 General Appearance: Alert, Oriented X3, Cooperative, No acute distress HEENT: Atraumatic, PERRLA Cardiovascular: Normal S1, Normal S2 Abdomen: Normal bowel sounds, Soft Musculoskeletal: Normal sensory function, Normal motor function Neuro: Normal gait, Normal speech Skin: Dry, Intact Psych/Mental Status: Mental status NL, Mood NL Medications Current Medications Medications Dose Ordered Sig/Marisol Route Start Time Stop Time Status Last Admin Dose Admin Sodium Chloride 1,000 ml @ 150 mls/hr Q6H40M IV 02/23/25 18:45 02/24/25 15:35 150 MLS/HR Nitroglycerin 0.4 mg Q5MINP PRN SL 02/23/25 13:45 Morphine Sulfate 2 mg Q30M PRN IV 02/23/25 13:45 Pantoprazole Sodium 40 mg DAILY@0600 PO 02/24/25 06:00 02/24/25 06:57 40 MG Morphine Sulfate 1 mg Q4HPRN PRN IV 02/23/25 13:45 Acetaminophen/ Hydrocodone Bitart 1 tab Q6HPRN PRN PO 02/23/25 13:45 02/23/25 20:05 1 TAB Acetaminophen 500 mg Q8HP PRN PO 02/23/25 13:45 Ondansetron HCl 4 mg Q6HP PRN IV 02/23/25 13:45 Clopidogrel Bisulfate 75 mg DAILY PO 02/24/25 10:00 02/24/25 09:41 75 MG Atorvastatin Calcium 80 mg HS PO 02/23/25 22:00 02/23/25 22:47 80 MG Aspirin 81 mg DAILY PO 02/24/25 10:00 02/24/25 09:41 81 MG Sodium Chloride 1,000 ml @ 100 mls/hr Q10H IV 02/23/25 16:00 Cancel Dextrose 50 ml PRN PRN IV 02/23/25 20:00 Diagnostic Test (Pha) 1 strip IQ4HR 02/24/25 04:00 02/24/25 15:41 1 STRIP Insulin Human Regular IQ4HR SC 02/24/25 04:00 02/24/25 11:38 3 UNITS Dextrose 50 ml UD PRN IV 02/24/25 02:30 Insulin Glargine 15 units QAM SC 02/24/25 07:00 UNV Insulin Glargine 15 units QAM SC 02/24/25 07:00 02/24/25 07:18 15 UNITS Laboratory Results Laboratory Tests 02/24/25 03:53 Chemistry Test 02/23/25 18:34 02/24/25 00:35 02/24/25 03:53 Calcium Level 8.5 mg/dL (8.7-10.4) L 8.0 mg/dL (8.7-10.4) L 8.6 mg/dL (8.7-10.4) L Coagulation Test 02/23/25 21:13 Prothrombin Time 11.9 sec (9.3-11.8) H Prothrombin Time INR 1.14 (0.9-1.15) Activated Partial Thromboplast Time 31.9 SEC (24.5-34.5) Urinalysis Test 02/24/25 03:30 Urine Color Yellow (Yellow) Urine Clarity Clear (Clear) Urine pH 6.5 (5.0-9.0) Urine Specific [place] > 1.050 (1.001-1.035) Urine Protein 1+ (Negative) H Urine Ketones Negative (Negative) Urine Blood Negative /uL (Negative) Urine Nitrite Negative (Negative) Urine Bilirubin Negative (Negative) Urine Urobilinogen 2 mg/dL (Negative) H Urine Leukocyte Esterase Negative /uL (Negative) Urine RBC 17 /hpf (0 - 4) Urine Microscopic WBC 4 /HPF (0-5) Urine Squamous Epithelial Cells Few /hpf (<5) Urine Bacteria None seen /hpf (None Seen) Urine Hyaline Casts Few /lpf (0 - 2) Urine Glucose 3+ mg/dL (Normal) H Labs and/or images reviewed: Labs reviewed by me, Image(s) reviewed by me Assessment/Plan Assessment/Plan Impression: -STEMI, involving inferior and lateral mccrary -diabetes mellitus, uncontrolled with severe hyperglycemia -obesity -hypothyroidism -underlying atrial fibrillation, 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 Patient without chest pain today. Echocardiogram pending. -continue dual antiplatelet therapy -cardiology consultation: Plans for emergent left heart catheterization -echocardiogram -regular insulin sliding scale -thyroid supplementation -repeat labs unremarkable Total time spent with patient discussing and formulating plan of care: 35 minutes. This medical document was created using an electronic medical record system with [employer] dictation system. Although this document has been carefully reviewed, there may still be some phonetic and typographical errors. These areas are purely typographical due to imperfections of the software programs, and do not reflect any compromise in the patient's medical care. Plan discussed with: Patient, Other (RN) My Orders Orders - FABIOLA MALIK NP Procedure Category Date Status Time D/C All Diabetic DAVID 02/23/25 In Process Medications 19:43 D/C All Diabetic DAVID 02/23/25 In Process Medications 19:43 D/C All Diabetic DAVID 02/23/25 In Process Medications 19:43 Dextrose 50% Syringe PHA 02/23/25 In Process 20:00 Date of Service: February 24, 2025 Billing Provider: FABIOLA MALIK NP Common Visit Codes: [id number] INP/OBS CARE(HIGH) FABIOLA MALIK NP February 24, 2025 15:55
--- NOTE | 2025-02-24 18:00 | DVHPN2 ---
Consult Progress Note Subjective Other Systems: Patient in normal sinus rhythm on pipe tester No cardiac events noted on monitor. Objective vital signs Vital Sign Date Time Temp Pulse Resp B/P (MAP) Pulse Ox O2 Delivery O2 Flow Rate FiO2 02/24/25 16:30 98.1 76 18 110/66 (81) 96 98.1 02/24/25 08:00 Room Air* 0 21 Total Intake and Output 02/23/25 02/23/25 02/24/25 15:00 23:00 07:00 Intake Total 1874 ml 753 ml Balance 1874 ml 753 ml medications Current Medications Medications Dose Ordered Sig/Marisol Route Start Time Stop Time Status Last Admin Dose Admin Sodium Chloride 1,000 ml @ 150 mls/hr Q6H40M IV 02/23/25 18:45 02/24/25 15:35 150 MLS/HR Nitroglycerin 0.4 mg Q5MINP PRN SL 02/23/25 13:45 Morphine Sulfate 2 mg Q30M PRN IV 02/23/25 13:45 Pantoprazole Sodium 40 mg DAILY@0600 PO 02/24/25 06:00 02/24/25 06:57 40 MG Morphine Sulfate 1 mg Q4HPRN PRN IV 02/23/25 13:45 Acetaminophen/ Hydrocodone Bitart 1 tab Q6HPRN PRN PO 02/23/25 13:45 02/23/25 20:05 1 TAB Acetaminophen 500 mg Q8HP PRN PO 02/23/25 13:45 Ondansetron HCl 4 mg Q6HP PRN IV 02/23/25 13:45 Clopidogrel Bisulfate 75 mg DAILY PO 02/24/25 10:00 02/24/25 09:41 75 MG Atorvastatin Calcium 80 mg HS PO 02/23/25 22:00 02/23/25 22:47 80 MG Aspirin 81 mg DAILY PO 02/24/25 10:00 02/24/25 09:41 81 MG Sodium Chloride 1,000 ml @ 100 mls/hr Q10H IV 02/23/25 16:00 Cancel Dextrose 50 ml PRN PRN IV 02/23/25 20:00 Diagnostic Test (Pha) 1 strip IQ4HR 02/24/25 04:00 02/24/25 15:41 1 STRIP Insulin Human Regular IQ4HR SC 02/24/25 04:00 02/24/25 16:04 3 UNITS Dextrose 50 ml UD PRN IV 02/24/25 02:30 Insulin Glargine 15 units QAM SC 02/24/25 07:00 UNV Insulin Glargine 15 units QAM SC 02/24/25 07:00 02/24/25 07:18 15 UNITS Examination: GENERAL:Normal, LUNGS:Normal, CVS:Normal, NEURO:Normal laboratory and microbiology Laboratory Tests 02/24/25 03:53 Test 02/24/25 03:53 Range/Units Serum Glucose 133 H 74-106 mg/dL Problem List/Assessment/Plan Problem List/Assessment/Plan Acute ST-elevation myocardial infarction status post PTCA X 4 SHANNON Chronic HFmrEF, NYHA class III Thyroid disease Type 2 diabetes mellitus Acute kidney injury, resolved Obesity Plan/recommendations (Dr. Pa): The patient came in with ST-elevation myocardial infarction and was urgently taken to the crime lab analyst in which she underwent a coronary angiogram with left heart catheterization and underwent successful PTCA and stenting of the occluded RCA, PTCA and stenting of the LAD and diagonal. EF approximately 45% per procedure report. Initiate guideline directed medical therapy for CHF. We will recommend for the patient to continue with dual antiplatelet therapy, ROSA inhibitor, beta-jaja, and statin therapy. The patient will need to follow up with Cardiology in the outpatient setting within 1-2 weeks after discharge. This was explained to the patient. Thank you for allowing us to care for this patient. Please call with any questions or concerns. This medical document was created using an electronic medical record system with voice recognition software and computerized dictation system. Although this document has been carefully reviewed, there might still be some phonetic and typographical errors. Occasional wrong-word or ``sound-alike substitutions may have occurred due to the inherent limitations of voice recognition software. These areas are purely typographical due to imperfections of the software programs and do not reflect any compromise in the patient's medical care. Please read the chart carefully and recognize, using context, where these substitutions have occurred. Plan discussed with: Patient Date of Service: February 24, 2025 Billing Provider: FARHANA GOMES Common Visit Codes: [id number] INP/OBS CARE(HIGH) FARHANA GOMES February 24, 2025 17:59
[2025-02-25] VITALS (7 sets, daily range): BP systolic 105–113; BP diastolic 60–70; PULSE 65–78; RESP 18–60; TEMP 36.9; O2SAT 93–98
[2025-02-25] MEDS: METOPROLOL SUCCINATE XL 50 MG TAB PO SCH (09:25)
[2025-02-25] MEDS: LISINOPRIL 5 MG TAB PO SCH (09:25)
[2025-02-25] MEDS ORDERED: CLOP75TA28 PO (10:37)
[2025-02-25] MEDS ORDERED: EMPA1TAB PO (10:37)
[2025-02-25] MEDS ORDERED: SPIR25TA8 PO (10:37)
[2025-02-25] MEDS ORDERED: ASPI1TAB20 PO (10:37)
--- NOTE | 2025-02-25 10:44 | DVHDS2 ---
Discharge Summary Date of Admission February 23, 2025 at 13:43 Date of Discharge: February 25, 2025 Admitting Diagnosis STEMI Labs/Diagnostic Data: Laboratory Results Test 02/25/25 05:01 02/24/25 03:53 02/24/25 03:30 02/23/25 21:13 POC Glucose 97 mg/dl (70-106) White Blood Count 7.6 10^3/uL (4.4-10.8) Red Blood Count 3.23 10^6/uL (4.0-5.20) Hemoglobin 9.8 g/dL (12.2-16.2) Hematocrit 28.8 % (36.0-46.0) Mean Corpuscular Volume 89.1 fL (80.0-100.0) Mean Corpuscular Hemoglobin 30.3 pg (28.0-32.0) Mean Corpuscular Hemoglobin Concent 34.0 g/dL (32.0-36.0) Red Cell Distribution Width 13.5 % (11.8-14.3) Platelet Count 101 10^3/uL (140-450) Mean Platelet Volume 10.5 fL (6.9-10.8) Neutrophils (%) (Auto) 70.9 % (37.0-80.0) Lymphocytes (%) (Auto) 20.1 % (10.0-50.0) Monocytes (%) (Auto) 8.6 % (0.0-12.0) Eosinophils (%) (Auto) 0.1 % (0.0-7.0) Basophils (%) (Auto) 0.3 % (0.0-2.0) Neutrophils # (Auto) 5.4 10 ^3/uL (1.6-8.6) Lymphocytes # (Auto) 1.5 10 ^3/uL (0.4-5.4) Monocytes # (Auto) 0.7 10 ^3/uL (0-1.3) Eosinophils # (Auto) 0 10 ^3/uL (0-0.8) Basophils # (Auto) 0 10 ^3/uL (0-0.2) Nucleated Red Blood Cells 0.1 % Sodium Level 141 mmol/L (136-145) Potassium Level 3.6 mmol/L (3.5-5.1) Chloride Level 107 mmol/L (98-107) Carbon Dioxide Level 23 mmol/L (20-31) Anion Gap 11 (5-15) Blood Urea Nitrogen 18 mg/dL (9-23) Creatinine 0.74 mg/dL (0.550-1.02) Glomerular Filtration Rate Calc 95 mL/min (>90) BUN/Creatinine Ratio 24.3 (10.0-20.0) Serum Glucose 133 mg/dL (74-106) Calcium Level 8.6 mg/dL (8.7-10.4) Urine Color Yellow (Yellow) Urine Clarity Clear (Clear) Urine pH 6.5 (5.0-9.0) Urine Specific Bartlett > 1.050 (1.001-1.035) Urine Protein 1+ (Negative) Urine Ketones Negative (Negative) Urine Blood Negative /uL (Negative) Urine Nitrite Negative (Negative) Urine Bilirubin Negative (Negative) Urine Urobilinogen 2 mg/dL (Negative) Urine Leukocyte Esterase Negative /uL (Negative) Urine RBC 17 /hpf (0 - 4) Urine Microscopic WBC 4 /HPF (0-5) Urine Squamous Epithelial Cells Few /hpf (<5) Urine Bacteria None seen /hpf (None Seen) Urine Hyaline Casts Few /lpf (0 - 2) Urine Glucose 3+ mg/dL (Normal) Prothrombin Time 11.9 sec (9.3-11.8) Prothrombin Time INR 1.14 (0.9-1.15) Activated Partial Thromboplast Time 31.9 SEC (24.5-34.5) Test 02/23/25 13:34 02/23/25 13:07 02/23/25 12:46 Hemoglobin A1c 6.9 % A1C (<5.7) Troponin I High Sensitivity 77379 ng/L (</=34) Blood Gas Specimen Type Arterial Blood Gas Sample Site Right radial Blood Gas Patient Temperature 37.0 Arterial Blood Date Drawn [id number] Arterial Blood pH 7.456 (7.350-7.450) Arterial Blood Partial Pressure CO2 31.3 mmHg (32.0-45.0) Arterial Blood Partial Pressure O2 73.7 mmHg (83.0-108.0) Arterial Blood HCO3 21.6 mmol/L (21.0-28.0) Arterial Blood Oxygen Saturation 92.4 % (94.0-98.0) Arterial Blood Base Excess -1.6 mmol/L (-2.0-3.0) Arterial Blood Oxyhemoglobin 91.8 % (94.0-98.0) Arterial Blood Carboxyhemoglobin 0.2 % (0.5-1.5) Arterial Blood Methemoglobin 0.5 % (0.0-1.5) Elian Test Yes Blood Gas Total Hemoglobin 11.20 g/dL (12.0-16.0) Blood Gas Modality Room air FiO2 % 21.0 Serum Osmolality 316 mOsm/kg (278-298) Phosphorus Level 5.3 mg/dL (2.4-5.1) Magnesium Level 1.8 mg/dL (1.6-2.6) B-Type Natriuretic Peptide 127.24 pg/mL (0-100) Beta-Hydroxybutyric Acid 0.307 mmol/L (< 0.4) Thyroid Stimulating Hormone (TSH) 1.06 uIU/mL (0.55-4.78) Free Thyroxine (T4) Calculated 2.65 ng/dL (0.89-1.76) Other Laboratory Tests 02/24/25 03:53 Brief Hx & Hospital Course: History of Present Illness Patient is a 54-year-old female presenting to the emergency room with shortness of breath. Patient was placed on the hand candle dipper, found to have ST- elevation, which was verified using 12 lead ECG. She denies any chest pain at this time only dyspnea. Twelve lead ECG reveals ST elevations in inferior and lateral leads. Significant history of the patient includes atrial fibrillation, with noted palpitations on previous admission on 01/21/2025, which time she was found to have severe hypothyroidism and myxedema coma. Other significant history of the patient includes diabetes mellitus, for which the patient's blood sugar was noted to be 501 with her basic metabolic panel. Cardiology has already assessed the patient bedside with plans for emergent left heart catheterization. Course of hospitalization: Patient was taken to the cardiac catheterization lab, subsequently undergoing PTCA and stent placement to RCA which was culprit lesion for STEMI, as well as stent placement to LAD and diagonal artery. Patient was given adequate hydration given RV infarct. Echocardiogram was performed. Ejection fraction noted to be decrease from previous echocardiogram, noted to be 40%. Guideline directed medical therapy was started with the patient. Given her decreased blood pressure, patient was placed on Toprol XL 25 mg p.o. daily, and lisinopril 2.5 mg p.o. daily. Patient's blood pressure was stable after Jose David and beta- jaja therapy, for which Jardiance and spironolactone was started on the patient. Chest x-ray was performed with the patient the day of discharge which revealed no CHF. Patient was restarted on levothyroxine. Blood sugars has been much better controlled. Patient will be discharged home and follow up with Cardiology in 1-2 weeks as well as PCP in 1-2 weeks. She will be continued on previously mentioned GDM T, and continue all previous home medications including metformin given patient is greater than 48 hours from receiving IV contrast. Patient was agreeable with discharge plan. All questions answered. Physical examination General: Alert and Oriented x3. No acute distress. Well-nourished. Obese Eyes: EOMI. Anicteric. HENT: Moist mucous membranes. Lungs: Clear to auscultation bilaterally. No accessory muscle use. Cardiovascular: Regular rate and rhythm. No murmur. No JVD. Abdomen: Soft, non-tender and non-distended. No palpable masses. Extremities: No edema. Non-tender. Skin: No rashes or lesions. Warm. Neurologic: No focal neurological deficits. CN II-XII grossly intact, but not individually tested. Psychiatric: Cooperative. Appropriate mood and affect. Total time spent with patient discussing and formulating plan of care: 35 minutes. This medical document was created using an electronic medical record system with [employer] dictation system. Although this document has been carefully reviewed, there may still be some phonetic and typographical errors. These areas are purely typographical due to imperfections of the software programs, and do not reflect any compromise in the patient's medical care. Consults/Reason for consult Cardiology: NSTEMI Operations or Procedures 02/23/2025: Heart catheterization with noted CAD multiple vessels receiving PTCA and stent placement Condition at Discharge: Good Final Diagnosis/Problems List Successful PTCA and stenting of the occluded RCA. PTCA and stenting of the LAD and diagonal. 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 Patient was counseled about treatment plan, medications, possible side effects, patientverbalized understanding. All questions were answered to the best of my ability. This discharge took greater then 30 minutes in planning, reviewing documentation, counseling the patient, and discussing with other team members." ASSESSMENT ASSESSMENT Assessment Successful PTCA and stenting of the occluded RCA. PTCA and stenting ofthe LAD and diagonal. Date of Service: February 25, 2025 Billing Provider: FABIOLA MALIK NP Common Visit Codes: 66541-FFB/OBS DISCH DAY >30min FABIOLA MALIK NP February 25, 2025 10:44
[2025-02-25] MEDS ORDERED: MISC-412 XX (10:48)
--- NOTE | 2025-02-25 10:49 | DVH ---
XY CHEST XRAY 1 VIEW, HISTORY: chf COMPARISON: XY CHEST XRAY 1 VIEW on DOS: 02/23/25, XY CHEST PORTABLE on DOS: 01/21/25 XY CHEST XRAY 1 VIEW on DOS: 02/23/25, XY CHEST PORTABLE on DOS: 01/21/25 TECHNICAL DATA: 1 view of the chest was obtained. FINDINGS: Lines and tubes: None Cardiomediastinal silhouette: normal Pulmonary vasculature: normal Lung expansion: low Lung airspace: normal Lung interstitium: normal Pleura: normal Pneumothorax: no Bones: Unremarkable Other: no IMPRESSION: No acute intrathoracic abnormality.
[2025-02-25] MEDS: EMPAGLIFLOZIN 10 MG TAB PO ONE ×2 (11:07→11:09)
[2025-02-25] MEDS: LEVOTHYROXINE SODIUM 50 MCG TAB PO ONE (11:08)
[2025-02-25] MEDS: SPIRONOLACTONE 25 MG TAB PO SCH (11:08)
--- NOTE | 2025-02-25 11:29 | DVHPN2 ---
Consult Progress Note Subjective Patient reports: Feels better Other Systems: Patient in normal sinus rhythm on monitoring coordinator. No cardiac events reported overnight. Objective vital signs Vital Sign Date Time Temp Pulse Resp B/P (MAP) Pulse Ox O2 Delivery O2 Flow Rate FiO2 02/25/25 11:11 36.9 68 02/25/25 09:25 110/68 02/25/25 08:50 18 93 02/25/25 08:00 Room Air* 0 21 Total Intake and Output 02/24/25 02/24/25 02/25/25 15:00 23:00 07:00 Intake Total 868 ml 0 ml Balance 868 ml 0 ml medications Current Medications Medications Dose Ordered Sig/Marisol Route Start Time Stop Time Status Last Admin Dose Admin Nitroglycerin 0.4 mg Q5MINP PRN SL 02/23/25 13:45 Morphine Sulfate 2 mg Q30M PRN IV 02/23/25 13:45 Pantoprazole Sodium 40 mg DAILY@0600 PO 02/24/25 06:00 02/25/25 04:59 40 MG Morphine Sulfate 1 mg Q4HPRN PRN IV 02/23/25 13:45 Acetaminophen/ Hydrocodone Bitart 1 tab Q6HPRN PRN PO 02/23/25 13:45 02/24/25 20:45 1 TAB Acetaminophen 500 mg Q8HP PRN PO 02/23/25 13:45 Ondansetron HCl 4 mg Q6HP PRN IV 02/23/25 13:45 Clopidogrel Bisulfate 75 mg DAILY PO 02/24/25 10:00 02/25/25 09:26 75 MG Atorvastatin Calcium 80 mg HS PO 02/23/25 22:00 02/24/25 21:15 80 MG Aspirin 81 mg DAILY PO 02/24/25 10:00 02/25/25 09:26 81 MG Sodium Chloride 1,000 ml @ 100 mls/hr Q10H IV 02/23/25 16:00 Cancel Dextrose 50 ml PRN PRN IV 02/23/25 20:00 Cancel Diagnostic Test (Pha) 1 strip IQ4HR 02/24/25 04:00 02/25/25 07:32 1 STRIP Insulin Human Regular IQ4HR SC 02/24/25 04:00 02/24/25 23:43 2 UNITS Dextrose 50 ml UD PRN IV 02/24/25 02:30 Insulin Glargine 15 units QAM SC 02/24/25 07:00 UNV Insulin Glargine 15 units QAM SC 02/24/25 07:00 02/24/25 07:18 15 UNITS Metoprolol Succinate 25 mg DAILY PO 02/25/25 10:00 02/25/25 09:25 25 MG Lisinopril 2.5 mg DAILY PO 02/25/25 10:00 02/25/25 09:25 2.5 MG Empaglifozin 10 mg DAILY PO 02/26/25 10:00 Spironolactone 25 mg DAILY PO 02/25/25 10:30 02/25/25 11:08 25 MG Examination: GENERAL:Normal, LUNGS:Normal, CVS:Normal, NEURO:Normal laboratory and microbiology Laboratory Tests 02/24/25 03:53 Test 02/24/25 03:53 Range/Units Serum Glucose 133 H 74-106 mg/dL Problem List/Assessment/Plan Problem List/Assessment/Plan Acute ST-elevation myocardial infarction status post PTCA X 4 SHANNON Chronic HFmrEF, NYHA class III Thyroid disease Type 2 diabetes mellitus Acute kidney injury, resolved Obesity Plan/recommendations (Dr. Pa): The patient came in with ST-elevation myocardial infarction and was urgently taken to the [facility] on 02/23/25 in which she underwent a coronary angiogram with left heart catheterization and underwent successful PTCA and stenting of the occluded RCA, PTCA and stenting of the LAD and diagonal. EF approximately 45% per procedure report. Continue guideline directed medical therapy for CHF. We will recommend for the patient to continue with dual antiplatelet therapy, ROSA inhibitor, beta-jaja, and statin therapy. The patient will need to follow up with Cardiology in the outpatient setting within 1-2 weeks after discharge. This was explained to the patient. Patient also educated on dietary and lifestyle changes. There is no further inpatient cardiac workup indicated at this time. Thank you for allowing us to care for this patient. Please call with any questions or concerns. This medical document was created using an electronic medical record system with voice recognition software and computerized dictation system. Although this document has been carefully reviewed, there might still be some phonetic and typographical errors. Occasional wrong-word or ``sound-alike substitutions may have occurred due to the inherent limitations of voice recognition software. These areas are purely typographical due to imperfections of the software programs and do not reflect any compromise in the patient's medical care. Please read the chart carefully and recognize, using context, where these substitutions have occurred. Plan discussed with: Patient Date of Service: February 25, 2025 Billing Provider: FARHANA GOMES Common Visit Codes: [id number] INP/OBS CARE(HIGH) FARHANA GOMES February 25, 2025 11:29
[2025-02-26] MEDS ORDERED: EMPAGLIFLOZIN 10 MG TAB PO SCH (10:00)
--- NOTE | 2025-02-28 08:51 | DVHSR ---
APPROVED REPORT EXAM: Two-dimensional and M-mode echocardiogram with Doppler and color Doppler. Blood Pressure: 97/62 mmHg INDICATION STEMI RISK FACTORS Height: 63, Weight: 205 DIMENSIONS LVDd5.0 (3.8-5.7cm)LA (2D)4.0 (1.9-4.0cm)Aortic Root3.7 (2.0-3.7cm) LVDs4.1 (2.5-4.0cm)LA (MM) (1.9-4.0cm)Aortic Cusp Exc1.8 (1.5-2.0cm) EF (%) 40.0 (55-70%)Rt. Atrium4.1 (1.9-4.0cm)Asc. Aorta cm Mitral Valve MitralMitral Stenosis E wave0.76m/sMV Mean GR.mmHg A wave0.55m/sMV Peak GR.73mmHg E/A ratio1.42D MVAcm2 DECEL [id number] 1/2 [id number] IVRTmsDop MVA3.56cm2 Aortic Valve Aortic ValveAortic Stenosis V11.04m/Mani Mean GR.4mmHg V21.30m/Mani Peak GR.7mmHg LVOT Diameter1.7 (1.8-2.4cm)Doppler AVA1.81cm2 Pulmonic Valve V20.91m/s Tricuspid Valve TR Velocity1.91m/s [id number] Conclusion Technically good study. Sinus rhythm. Left atrial enlargement. Valves are normal. EF of 35% with normal RV function. Inferoseptal hypokinesis. Posterior basal hypokinesis. Moderate TR. Moderate MR. No pericardial effusion masses or vegetations discernible.
== END 2025-02-25 13:00 | disposition home or self-care (01) | DRG 321 ==
LOC: ER 12:24 → OVERFLOW 13:43 → CATH ICU 15:12 → TELE-CENTR 02-24 05:30
PROVIDERS: ADMIT Nurse Practitioner Acute Care; ATTEND Nurse Practitioner Acute Care
PROC: 027137Z Dilation of Coronary Artery, Two Arteries with Four or More Drug-eluting Intraluminal Devices, Percutaneous Approach (ICD-10-PCS; principal; 2025-02-23)
PROC: B211YZZ Fluoroscopy of Multiple Coronary Arteries using Other Contrast (ICD-10-PCS; 2025-02-23)
PROC: B215YZZ Fluoroscopy of Left Heart using Other Contrast (ICD-10-PCS; 2025-02-23)
PROC: 4A023N7 Measurement of Cardiac Sampling and Pressure, Left Heart, Percutaneous Approach (ICD-10-PCS; 2025-02-23)
PROC: 4A033BC Measurement of Arterial Pressure, Coronary, Percutaneous Approach (ICD-10-PCS; 2025-02-23)
PROC: 3E033PZ Introduction of Platelet Inhibitor into Peripheral Vein, Percutaneous Approach (ICD-10-PCS; 2025-02-23)
DX: I21.02 ST elevation (STEMI) myocardial infarction involving left anterior descending coronary artery (principal); E10.10 Type 1 diabetes mellitus with ketoacidosis without coma; N17.0 Acute kidney failure with tubular necrosis; I50.22 Chronic systolic (congestive) heart failure; I13.0 Hypertensive heart and chronic kidney disease with heart failure and stage 1 through stage 4 chronic kidney disease, or unspecified chronic kidney disease; E66.9 Obesity, unspecified; E03.9 Hypothyroidism, unspecified; E10.22 Type 1 diabetes mellitus with diabetic chronic kidney disease; I48.91 Unspecified atrial fibrillation; N18.9 Chronic kidney disease, unspecified; K21.9 Gastro-esophageal reflux disease without esophagitis; I49.5 Sick sinus syndrome; Z95.5 Presence of coronary angioplasty implant and graft; Z82.49 Family history of ischemic heart disease and other diseases of the circulatory system; Z68.36 Body mass index [BMI] 36.0-36.9, adult; Z79.4 Long term (current) use of insulin; Z79.899 Other long term (current) drug therapy
CPT/HCPCS: 36415; 36600; 71045; 80048; 81001; 82010; 82805; 82962; 83036; 83735; 83880; 83930; 84100; 84439; 84443; 84484; 85025; 85610; 85730; 92929; 92941; 93005; 93306; 93458; 93571; 96372; 96374; 99152; 99291; C1874; G0378; J1815; J2250; Q9967